=== PATIENT | female | born 1945 | race Caucasian/White ===

== ENCOUNTER → 2017-09-22 11:30 | Outpatient (CLI) | payer MEDICARE, OTHER, SELFPAY ==
--- NOTE | 2017-09-22 | DI.MRI.S_ITS ---
PROCEDURE: MR KNEE LT WO CON INDICATIONS: LEFT KNEE PAIN TECHNIQUE: Noncontrast sagittal PD fast spin echo and T2 fast spin echo with fat saturation, sagittal 3-D FLASH with fat saturation; coronal T1 spin echo and PD fast spin echo with fat saturation, and axial PD fast spin echo with fat saturation through the knee. COMPARISON: None. FINDINGS: Image quality: Excellent. Menisci: The medial extrusion of the medial meniscus is present. Amorphous high signal intensity within the medial meniscal body and posterior horn is present, demonstrating superior and inferior articular surface extension, indicating degenerative tearing. Radial tearing of the posterior horn medial meniscus at the meniscal root ligament insertion site is present. There is intrameniscal high signal within the anterior and posterior horns of the lateral meniscus, consistent with mucoid degeneration, without evidence of superimposed tear. Cruciate ligaments: The posterior cruciate ligament is intact. There is moderate signal loss and mild redundancy of the anterior cruciate ligament, indicating partial thickness tearing. Medial structures: The medial collateral ligament demonstrates mild T2 signal elevation within and surrounding its femoral insertion site. The posterior oblique ligament, semimembranosus tendon insertions, oblique popliteal ligament, and meniscocapsular junction appear intact. Visualized portions of the pes anserinus tendons appear normal. No abnormal bursal fluid. Lateral structures: The lateral collateral ligament demonstrates moderate T2 signal elevation within its substance at the femoral insertion site. The long and short heads of the biceps femoris tendon appear intact. The popliteus tendon appears normal; the popliteofibular ligament appears intact. The posterosuperior and anteroinferior popliteomeniscal fascicles appear intact. The arcuate and fabellofibular ligaments appear intact, on either side of the lateral inferior geniculate artery. Iliotibial band appears normal. Anterior structures: The quadriceps and patellar tendons appear intact. Patellar alignment is normal. No femoral trochlear dysplasia or ventral trochlear prominence. Mild edema in the superolateral aspect of the infrapatellar fat pad. Bones and cartilage: No bone marrow contusions or fractures. Mild ill-defined degenerative marrow edema within the posterior weightbearing aspect of the medial tibial plateau. Severe tricompartmental periarticular osteophyte formation is present. Moderate degree of cartilage loss overlies the lateral femoral trochlea and lateral patellar facet. Severe diffuse articular cartilage loss overlies the medial femoral condyle and medial tibial plateau weightbearing aspects. Joint space: There is a moderate knee joint effusion and a small Garcia's cyst. A few small intra-articular loose bodies are present, largest of which is in the posterior knee joint measuring 7 mm. Normal appearing synovial plicae are incidentally noted. IMPRESSION: 1. Medial meniscal tearing and medial extrusion. 2. 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 3. Partial-thickness medial and lateral collateral ligament tears. 4. Partial-thickness anterior cruciate ligament tear. 5. New joint effusion, Garcia's cyst, an intra-articular loose bodies. Dictated by: Gus Guerrero M.D. on 09/22/2017 at 14:41 Approved by: Gus Guerrero M.D. on 09/22/2017 at 14:45
--- NOTE | 2017-09-22 | DI.MG.S_ITS ---
BILATERAL DIGITAL SCREENING MAMMOGRAM 3D/2D WITH CAD: 09/22/2017 CLINICAL: Routine screening. Comparison is made to exams dated: 09/15/2016 mammogram, 09/15/2015 mammogram, and 09/03/2014 mammogram - [facility]. There are scattered fibroglandular elements in both breasts. Current study was also evaluated with a Computer Aided Detection (CAD) system. No significant masses, calcifications, or other findings are seen in either breast. There has been no significant interval change. IMPRESSION: NEGATIVE There is no mammographic evidence of malignancy. A 1 year screening mammogram is recommended. This exam was interpreted at Station ID: [id number]. NOTE: For mammograms, a report in lay terms will be sent to the patient. Approximately 15% of breast malignancies will not be visualized mammographically. In the management of a palpable breast mass, a negative mammogram must not discourage biopsy of a clinically suspicious lesion. Electronically Signed By: Vika galeana/janes:09/22/2017 16:27:08 letter sent: Normal Exam ACR BI-RADS Category 1: Negative [id number]
[2017-09-22 14:10] LABS: Add Manual Diff / Slide Review NO; Basophils Percent Auto 0.9 % (0-2); Eosinophils Percent Auto 4.3 % (2-4); Hematocrit 39.4 % (36-46); Hemoglobin 13.1 g/dL (12.0-16.0); Lymphocytes Percent Auto 29.7 % (25-40); Mean Corpuscular HGB Conc 33.3 % (30-36); Monocytes Percent Auto 5.7 % (3-14); Neutrophils Absolute Auto 4400 /uL (3000-5900); Neutrophils Percent Auto 59.4 % (50-75); Platelet Count 272 X10^3/uL (150-400); Red Blood Cell Count 4.24 X10^6/uL (4.0-5.2); Red Cell Distribution Width 13.9 % (11.6-14.8); White Blood Cell Count 7.5 X10^3/uL (4.5-11.0)
[2017-09-22 14:19] LABS: Hemoglobin A1C% w Est Avg Glu 6.2 % (4.0-6.0)
[2017-09-22 14:22] LABS: Prothrombin Time 11.3 SECONDS (10.1-12.7)
[2017-09-22 14:25] LABS: PTT Partial Thromboplastin Tim 31 SECONDS (26.4-36.2)
[2017-09-22 14:42] LABS: Blood Urea Nitrogen 35 mg/dL (7-17); Calcium 10.7 mg/dL (8.4-10.2); Carbon Dioxide 24 mmol/L (22-32); Chloride 102 mmol/L (98-107); Estimated Glomerular Filt Rate 54.3 mL/min (>60); Glucose 186 mg/dL (80-110); HEMOLYSIS < 15 (0-50); Potassium 5.1 mmol/L (3.4-5.1); Sodium 141 mmol/L (137-145)
== END ==
PROVIDERS: Family Provider Orthopaedic Surgery Orthopaedic Surgery of the Spine; PCP Internal Medicine; Visit Provider Orthopaedic Surgery
DX: M25.562 Pain in left knee (principal); S83.242A Other tear of medial meniscus, current injury, left knee, initial encounter; M17.12 Unilateral primary osteoarthritis, left knee; S83.412A Sprain of medial collateral ligament of left knee, initial encounter; S83.512A Sprain of anterior cruciate ligament of left knee, initial encounter; Z12.31 Encounter for screening mammogram for malignant neoplasm of breast; M48.062 Spinal stenosis, lumbar region with neurogenic claudication
CPT/HCPCS: 36415; 73721; 77063; 77067; 80048; 83036; 85025; 85610; 85730; 93005

== ENCOUNTER 2017-10-10 06:31 | Inpatient (IN) | payer MEDICARE, OTHER, SELFPAY ==
[2017-09-20 12:52] VITALS: BMI 33.5
[2017-10-10] VITALS (25 sets, daily range): BP systolic 92–146; BP diastolic 47–69; PULSE 57–75; RESP 12–18; TEMP 36–36.8; O2SAT 15–99; BMI 33.9
[2017-10-10] MEDS: LACTATED RINGERS 1,000 ML 42 ML IV ×2 (08:47→10:14)
--- NOTE | 2017-10-10 08:52 | PM.PREOP ---
Pre-operative Note Interval Note Pre-op Check: History & Physical Reviewed by Physician, Exam Performed and History & Physical exam performed today
[2017-10-10] MEDS: CLINDAMYCIN 900 MG/50 ML PIGGYBACK 50 MG IV ×2 (08:53→16:36)
--- NOTE | 2017-10-10 09:30 | SUR.OPER ---
Prone on spine table, head in foam head support, padded chest and pelvic supports, gel pad at knees, lower legs supported by pillows; nipples, genitalia and toes free of pressure, arms secured on foam padded arm boards at <90 degrees abduction. Tape over blanket at thigh secured to table.
[2017-10-10] MEDS: BUPIVACAINE 0.25% W/ EPI 50 ML VIAL 30 ML INJ (09:45)
[2017-10-10] MEDS: BUPIVACAINE LIPOSOME 266 MG/20 ML VIAL INJ (09:46)
--- NOTE | 2017-10-10 10:11 | SUR.OPER ---
Pt has a skin ulcer on her right medial ankle, observed during positioning, surgeon notified.
[2017-10-10] MEDS: ACETAMINOPHEN IV 1,000 MG/100 ML VIAL 400 MG IV (11:05)
--- NOTE | 2017-10-10 11:51 | DI.RAD.S_ITS ---
PROCEDURE: XR LUMBAR SPINE 2-3V INDICATIONS: L3-4, L4-5 TLIF TECHNIQUE: 2 views of the lumbar spine were acquired. COMPARISON: [facility], MR, L-SPINE WITHOUT CONTRAST, 01/18/2017, 12:10. [facility], CR, L-SPINE 2-3 VIEWS, 01/18/2017, 12:40. FINDINGS: 2 intraoperative fluoroscopy images demonstrate discectomy and posterior fusion at L3-L4 and L4-L5. IMPRESSION: Discectomy and posterior fusion at L3-L4 and L4-L5. Dictated by: Orlando Otero M.D. on 10/10/2017 at 12:26 Approved by: Orlando Otero M.D. on 10/10/2017 at 12:27
--- NOTE | 2017-10-10 12:00 | P.OP_ITS ---
Operative Date/Time/Diagnoses - Date of procedure: 10/10/17 Time of procedure: 08:58 Pre-op diagnosis: 1. L3-4, L4-5 spondylolisthesis 2. L3-4, L4-5 spondylosis with radiculopathy 3. L3-4, L4-5 spinal stenosis Post-op diagnosis: same Procedure & Clinicians Procedure: 1. L3-4, L4-5 Postero-lateral and posterior interbody fusion 2. L3-4, L4-5 interbody cage placement. 3. L3-4, L4-5 decompressive laminectomy with bilateral facetecomies 4. L3-4, L4-5 Posterior segmental instrumentation 5. Raven of bone marrow from iliac crest 6. Utilization of microsurgical technique and operating microscope Same procedure as scheduled: Yes Indications: Patient has been having chronic back pain and worsening lumbar radiculopathy. Patient failed multiple conservative management with worsening pain weakness and numbness in her lower extremity. Patient has been having difficulty performing activity of daily living. After discussing risks benefits of treatment options, patient elected proceed with surgery. Surgeon: Black Michael Family Consumer Science Teacher: Yolanda Baldwin Click Yes if Unassisted: No Anesthesia Type: General Operative Notes Closure Type: primary Specimen(s): none sent Implants & Drains: Globus revolve screws and caliber cages Applied: catheter Estimated Blood Loss (mL): 100 Blood products transfused: none Procedure in detail: Patient was seen in the preoperative area. Risks and benefits of the surgery was discussed with the patient. Informed consent was obtained from the patient and placed in the chart. Surgical site was marked. Patient was taken to the operative room. General anesthesia was administered. Prophylactic antibiotic was given to the patient less than 30 min before the incision was made. Patient was placed into a prone position on the Fede table. Patient's back was then prepped and draped in the sterile fashion. Time- out was performed at this time. Using AP and lateral C-arm imaging the interval between L3-4, L4-5 was identified and marked on patient's back. A 2 inch incision 2 in from midline was made on the left side first. The fascia was incised in line with skin incision. Globus MARS retractors was placed inside the incision and docked onto the L3and L4 lamina. Using microsurgical technique and operating microscope, a L3 and L4 laminectomy and L3-4, L4-5 facetectomy was performed using a Kerrison rongeur. The disc space at L4-5, L5-S1 was identified. And a total diskectomy was performed at L3-4, L4-51 level. The endplates were decorticated using a rasp and shaver. The total diskectomy and decortication was performed at L3-4, L4-5 level in order to to accomplish a L3-4, L4-5 fusion. The local bone from the laminectomy and facetectomy was saved for local bone grafting. After the total diskectomy and decortication was completed, Globus viacell bone graft material was combined with local bone that was harvested earlier. At this time , a separate skin is incision was made over the iliac crest. A Jamshidi needle was inserted into the iliac crest through a separate skin incision. 5 cc of bone marrow aspiration was obtained through the separate skin incision using a Jamshidi needle from the iliac crest. The bone marrow aspiration was combined with local bone and the via cell bone grafting material. The bone grafting material was placed into the L3-4, L4-5 interbody space along with two cages, one expandable cage at each level. The cages were expanded to their maximum height using the torque limiting screwdriver. At this time a mirror image incision was made on the right side. The fascia was incised in line with the skin incision. Globus MARS retractor was inserted and docked onto the L3-4, L4-5 posterolateral gutter. Using the power drill, posterior-lateral decortication was performed at L3-4, L4-5 level until bleeding cortical bone was identified. The remaining bone grafting material was placed into the L3-4, L4-5 posterior lateral gutter he order to accomplish posterolateral fusion at the L3-4, L4-5 levels. Using the double C-arm technique, pedicle screws were placed into the L3, L4, L5 pedicles bilaterally. This was done by placing the Jamshidi needle into the pedicles, then placing the guidewires over the Jamshidi needle, and finally placing the cannulated screws over the guidewires bilaterally. After the pedicle screws were placed, 2 titanium rods was locked into the heads of the pedicle screws using locking caps and torque limiting screwdriver. Total 6 pedicles screws were placed. After all the hardware was placed, and confirmed with AP and lateral C-arm imaging, the wound was then irrigated with sterile normal saline and packed with Ray-Emma gauze for 3 min to accomplish hemostasis. After the gauze was removed the deep fascia was closed with #1 Vicryl suture. The subcutaneous layer was closed with 2-0 Vicryl. The skin was closed with skin kofi. Patient tolerated the procedure well. There were no complications. Complications: none Condition: stable Disposition: Acute Care Plan for aftercare: Admit to inpatient hospital
[2017-10-10] MEDS: HYDROMORPHONE 2 MG INJ 0.5 MG IV ×4 (12:18→12:50)
--- NOTE | 2017-10-10 13:00 | SUR.PHASEI ---
pt has dressing to right ankle and Mar RN said she came to surgery with that sore and Mar RN placed a dressing to right ankle. dressing is dry and intact.Report called and given to floor nurse.
[2017-10-10] MEDS: SODIUM CHLORIDE 0.9% 1,000 ML 100 ML IV (13:31)
--- NOTE | 2017-10-10 14:34 | PC.NURSE ---
Patient arrive to room at 1315. at bedside. Patient resting, with eyes closed, responds to verbal commands. Denies pain. Foot SCD's applied. Oriented to room. VS obtained. NS started 100ml/hr.
[2017-10-10] MEDS: OXYCODONE IR 5 MG TABLET 10 MG PO ×2 (16:36→19:54)
[2017-10-10] MEDS: ACETAMINOPHEN 325 MG TABLET 650 MG PO (19:53)
[2017-10-10] MEDS: METFORMIN HCL 500 MG TABLET 1000 MG PO (21:05)
[2017-10-10] MEDS: DOCUSATE 100 MG CAPSULE PO (21:06)
[2017-10-10] MEDS: SENNOSIDES 8.6 MG TABLET 17.2 MG PO (21:07)
--- NOTE | 2017-10-10 21:11 | PC.NURSE ---
Continuous pulse ox in place, 96% on 2 L. HR periodically drops to mid 50s during periods of sleep. Spoke with GAYLE Baldwin over the phone and made her aware of pt HR and drowsiness. Made PA aware that pt is extremely drowsy, and at times during conversation pt will fall asleep but awakens to verbal stimuli. Pt denies nausea. 2 oxycodone given at 1640, pt still c/o pain 12/19. At 1950 tylenol given with 2 PRN oxy, pt stating her pain is more tolerable. Foot SCD's in place, +pps, c/o neuropathy in bilateral feet at baseline. Frost patent, secured at bedside, draining clear yellow urine. Call light in reach. BA active.
[2017-10-11] VITALS (9 sets, daily range): BP systolic 113–123; BP diastolic 58–89; PULSE 65–80; RESP 14–18; TEMP 36.7–37.7; O2SAT 94–98
[2017-10-11] MEDS: CLINDAMYCIN 900 MG/50 ML PIGGYBACK 50 MG IV (00:18)
[2017-10-11] MEDS: OXYCODONE IR 5 MG TABLET 10 MG PO ×5 (00:28→15:58)
[2017-10-11] MEDS: SODIUM CHLORIDE 0.9% 1,000 ML 100 ML IV (01:12)
[2017-10-11] MEDS: hydrOXYzine pamoate 25 MG CAPSULE PO ×3 (01:41→10:10)
[2017-10-11] MEDS: HYDROMORPHONE 0.5 MG INJ IV (01:41)
[2017-10-11 06:13] LABS: Hematocrit 33.5 % (36-46); Hemoglobin 11.2 g/dL (12.0-16.0)
--- NOTE | 2017-10-11 06:34 | PC.NURSE ---
Shift note- [id number] Pt complained of pain in lower back of 10 at start of shift. Provided 2 tabs oxycodone 0028. Pt continued to complain of pain. Provided 1 tab vistaril and 0.5mg dilaudid at 0141. Pt was able to sleep 2- 3 hours. Pt current pain level at 8.
[2017-10-11] MEDS: DOCUSATE 100 MG CAPSULE PO ×2 (08:42→20:35)
[2017-10-11] MEDS: SITAGLIPTIN 50 MG TABLET 100 MG PO (08:42)
[2017-10-11] MEDS: METFORMIN HCL 500 MG TABLET 1000 MG PO ×2 (08:42→20:35)
[2017-10-11] MEDS: CLOPIDOGREL 75 MG TABLET PO (08:43)
[2017-10-11] MEDS: ATORVASTATIN 20 MG TABLET PO (10:10)
--- NOTE | 2017-10-11 13:00 | PT.IIE ---
Current Diagnoses Spondylolisthesis, lumbar region (10/10/17) Other spondylosis with radiculopathy, lumbar region (10/10/17) Spinal stenosis, lumbar region with neurogenic claudication (10/10/17) Surgery Performed Operation Date: 10/10/17 07:45 Actual Procedures p L3-4, L4-5 TLIF w/Posterior Stuart Michael MD Surgical History (Last Updated 09/20/17 @ 13:12 by Radha Mathew, RN) Hx of heart artery stent (Acute) Hx of tonsillectomy (Acute) S/P foot surgery, left (Acute) S/P foot surgery, right (Acute) Status post cataract extraction of both eyes with insertion of intraocular lens (Acute) Medical History (Last Updated 09/20/17 @ 13:15 by Radha Mathew RN) Amputated toe of left foot (Acute) CAD (coronary artery disease) (Acute) CVA (cerebral vascular accident) (Acute) Cardiomyopathy (Acute) Carotid arterial disease (Acute) Cerebral vascular disease (Acute) DDD (degenerative disc disease) (Acute) Diabetes (Acute) Foot ulcer due to secondary DM (Acute) HTN (hypertension) (Acute) Hyperlipidemia (Acute) Incontinence in female (Acute) Lumbar stenosis (Acute) Peripheral neuropathy (Acute) Physical Therapy Inpatient Evaluation/Re-Eval M1 PT/OT-IP Prior Functional Status Start: 10/11/17 12:46 Freq: NEEDED Status: Active Protocol: Document 10/11/17 12:47 AB (Rec: 10/11/17 13:00 AB [email or web address]) Medical Review Prior Functional Status Medical History Reviewed Yes Mobility and Gait pt stated that she is modified independent with all mobilities and ambulation without AD but occasionally uses a 4WW Social History Household Members spouse Living Arrangements House Number of Floors (Floors) One Floor Number of Stairs To Enter/Railing? no steps to enter Home Environment Standard Height Toilet Walk in Shower Built-In Shower Seat Home Equipment Front Wheel Walker Four Wheel Walker Manual Wheelchair Grab Bars Near Toilet Employment Status Retired M2 PT-IP Current Condition Start: 10/11/17 12:46 Freq: NEEDED Status: Active Protocol: Document 10/11/17 12:47 AB (Rec: 10/11/17 13:00 AB [email or web address]) Physical Therapy Current Condition Current Condition Evaluation Date 10/11/17 Treatment Diagnosis s/p L3-4, L4-5 TLIF Onset Date 10/10/17 Precautions Lumbar Precautions Log Roll No Twisting Limit Bending Lifting Restriction of 10 lbs Gait Belt above Incisional Area M3 PT-IP Subjective Start: 10/11/17 12:46 Freq: NEEDED Status: Active Protocol: Document 10/11/17 12:47 AB (Rec: 10/11/17 13:00 AB [email or web address]) Subjective Physical Therapy Visit Type Type Initial Evaluation Visit Start Time 10:03 Visit Stop Time 10:54 Total Visit Minutes 51 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 of 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 0 Therapy Pain Assessment Pain When Pain Assessed At Rest Pain Present Pain Present Pain Reported Location Back Intensity 10 Scale Used Numeric (1 - 10) Pain Management Techniques Modification of Treatment Timing of Activity with Medications M4 PT-IP Mobility and Gait Start: 10/11/17 12:46 Freq: NEEDED Status: Active Protocol: Document 10/11/17 12:47 AB (Rec: 10/11/17 13:00 AB [email or web address]) PT-Bed Mobility Assessment Rolling Level of Assist Maximal Assistance 1 Person Assistance Supine to Sit Supine to Sit Maximum Assistance 1 Person Assistance Sit to Supine Sit to Supine Maximum Assistance 2 Person Assistance PT-Transfer Assessment Sit to and From Stand Sit to and from Stand Maximum Assistance 2 Person Assistance Use of Upper Extremities Equipment Transfer Assistive Device Gait Belt Front Wheeled Walker Orthotic/Prosthetic Devices or Brace: No Comments Mobility Comments pt unable to sit on chiar. C/ o dizziness in standing; instructed to take side steps towards HOB using FWW. BP supine: 107/75 sitting on EOB: 134/72 after standin/67. pt is very drowsy and unable to answer questions and follow directions consistently Gait Assessment Gait Gait Assistance Required: Maximum Assistance Distance (Feet) (feet) 5 Able to Maintain Weight Bearing Status Yes During Gait Assistive Devices Assistive Device Gait Belt Front Wheeled Walker Gait Deviations General Gait Pattern Ataxic Decreased Stride Length Decreased Feet Clearance Factors Limiting Gait Function Factors Limiting Gait Function Decreased Activity Tolerance Decreased Strength Limited Range of Motion Pain Poor Balance Poor Safety Awareness PT-Balance Assessment Sitting Balance and Reactions Static Sitting Balance Ability Good Dynamic Sitting Balance Ability Fair Standing Balance and Reactions Static Standing Balance Ability Poor Dynamic Standing Balance Ability Poor Device Used FWW M5 PT-IP Objective Assessments Start: 10/11/17 12:46 Freq: NEEDED Status: Active Protocol: Document 10/11/17 12:47 AB (Rec: 10/11/17 13:00 AB [email or web address]) Orientation Orientation/Cognition Level of Alertness Confusional State Orientation Name Month Year Situation Safety Awareness Decreased Safety Awareness Memory Description Short Term Impaired Strength Lower Extremity Strength Assessment Bilaterally Impaired Hip 3+/5 Knee 4-/5 Ankle 4-/5 Sensation Assessment Sensation Gross Sensation Right LE Impaired Left LE Impaired Sensation Description Numbness Muscle Tone Muscle Tone WNL No M6 PT-IP Treatment Start: 10/11/17 12:46 Freq: NEEDED Status: Active Protocol: Document 10/11/17 12:47 AB (Rec: 10/11/17 13:00 AB [email or web address]) Physical Therapy Treatment Education Education Provided Precautions Weight Bearing Status Post-Op Packet Safety M7 PT-IP Assessment and Plan Start: 10/11/17 12:46 Freq: NEEDED Status: Active Protocol: Document 10/11/17 12:47 AB (Rec: 10/11/17 13:00 AB [email or web address]) PT Summary Assessment and Plan Potential Rehabilitation Potential Fair Status of Condition at Evaluation Evolving Summary Impairments Pain ROM Strength Balance Coordination Sensation Tone Cognition Bed Mobility Transfers Gait Activity Tolerance Assessment Summary pt requiring 2 person assist with mobility and has decrease coginitive level affecting following instructions and mobility. d/c plan depending on progress but at this time may require SNF rehab. Goals Bed Mobility Goal Standby Assistance Transfer Goal Standby Assistance Gait Goal Standby Assistance Gait Distance 150 Days to Meet Goals 3 Frequency of Treatment Frequency Of Treatment Twice a Day Treatment Plan Physical Therapy Treatment Plan Bed Mobility Training Transfer Training Gait Training Therapeutic Exercise Balance Retraining Post Op Education Discharge Planning Hot or Cold Pack Neuromuscular Re-ed Coordination Retraining Manual Therapy Other Recommendations and Next Treatment ambulation Focus Recommendations To Nursing Amount of Assist Needed 2 Person Assist Discharge Recommendations PT Discharge Recommendations SNF Rehab
--- NOTE | 2017-10-11 14:34 | PM.PNPO.1 ---
Subjective Date Patient Seen: 10/11/17 Time Patient Seen: 14:34 Interval history: POD #1 status post L3-[address] Michael. Her pain is not well-controlled. She is diabetic and her blood sugars have been well controlled. She has had no difficulty in the past taking steroids. She still has a Frost in place. Having difficulty mobilizing with PT due to pain. Exam Vital Signs (past 8 hours): - 10/11/17 07:00 10/11/17 08:49 10/11/17 11:45 Temperature 98.2 F 98.7 F Pulse Rate 75 67 Respiratory Rate 18 16 Blood Pressure 113/66 120/63 Pulse Oximetry 96 96 96 Oxygen Delivery Method Room Air Oxygen Flow Rate 1 Narrative Exam Narrative: Patient lying down in bed in no acute distress. Alert and oriented x3. Calves are soft, compressible, nontender bilaterally. She is able to actively dorsiflex and plantar flex. Sensation intact to light touch throughout bilateral lower extremities. Pulses are symmetrical. Objective Labs Result Diagrams: 10/11/17 05:51 Labs: Laboratory Results - last 24 hr 10/11/17 05:51 Hgb 11.2 L Hct 33.5 L Assessment & Plan Post-op (1) S/P lumbar fusion: Current Visit: Yes Status: Acute (2) Diabetes: Current Visit: Yes Status: Acute Postoperative Procedures Operation Date: 10/10/17 07:45 Actual Procedures Side Surgeon p L3-4, L4-5 TLIF w/Posterior Instru Black Michael MD POD #1 status post L3-[address] Michael. Will start 1 dose of Decadron 10 mg now, and then 4 mg every 6 hr for 24 hr burst. Continue to monitor blood sugars. Will mobilize with physical therapy. DC Frost once more active. Plan to discharge in next 1-2 days once medically stable, ambulating well, and pain adequately controlled. Time Spent With Patient less than 15 minutes
[2017-10-11] MEDS: DEXAMETHASONE 4 MG TABLET 10 MG PO (14:50)
[2017-10-11] MEDS: LISINOPRIL 10 MG TABLET PO (14:50)
[2017-10-11] MEDS: METOPROLOL ER 50 MG TABLET PO (14:50)
--- NOTE | 2017-10-11 15:13 | PT.IPTN ---
Current Diagnoses Type 2 diabetes mellitus without complications (10/10/17) Spondylolisthesis, lumbar region (10/10/17) Other spondylosis with radiculopathy, lumbar region (10/10/17) Spinal stenosis, lumbar region with neurogenic claudication (10/10/17) Arthrodesis status (10/10/17) Surgery Performed Operation Date: 10/10/17 07:45 Actual Procedures p L3-4, L4-5 TLIF w/Posterior Stuart - Black Michael MD Physical Therapy Treatment Note M2 PT-IP Current Condition Start: 10/11/17 12:46 Freq: NEEDED Status: Active Protocol: Document 10/11/17 12:47 AB (Rec: 10/11/17 13:00 AB [id number]) Physical Therapy Current Condition Current Condition Evaluation Date 10/11/17 Treatment Diagnosis s/p L3-4, L4-5 TLIF Onset Date 10/10/17 Precautions Lumbar Precautions Log Roll No Twisting Limit Bending Lifting Restriction of 10 lbs Gait Belt above Incisional Area M3 PT-IP Subjective Start: 10/11/17 12:46 Freq: NEEDED Status: Active Protocol: Document 10/11/17 15:13 AB (Rec: 10/11/17 16:46 AB [id number]) Subjective Physical Therapy Visit Type Type Treatment Note Visit Start Time 15:13 Visit Stop Time 15:40 Total Visit Minutes 27 Number of FILM OR TAPE LIBRARIAN Visits 0 Physical Therapy Visit Comments Patient Comments pt agreeable to do therapy Patient/Caregiver Goals spouse present during tx session and confirmed home set -up and pt's PLOF since pt was drowsy this morning. Therapy Pain Assessment Pain When Pain Assessed At Rest Pain Present Pain Present Pain Reported Location Back Intensity 10 Scale Used Numeric (1 - 10) Pain Management Techniques Re-positioning Timing of Activity with Medications M4 PT-IP Mobility and Gait Start: 10/11/17 12:46 Freq: NEEDED Status: Active Protocol: Document 10/11/17 15:13 AB (Rec: 10/11/17 16:46 AB [id number]) PT-Bed Mobility Assessment Rolling Type of Rolling Log Rolling Level of Assist Maximal Assistance Supine to Sit Supine to Sit Maximum Assistance 1 Person Assistance Sit to Supine Sit to Supine Maximum Assistance 2 Person Assistance Scooting Scooting to Edge of Bed Maximum Assistance Scooting Up and Down in Bed Maximum Assistance PT-Transfer Assessment Sit to and From Stand Sit to and from Stand Moderate Assistance 2 Person Assistance Use of Upper Extremities Equipment Transfer Assistive Device Gait Belt Front Wheeled Walker Gait Assessment Gait Gait Assistance Required: Moderate Assistance 2 Person Assist Distance (Feet) (feet) 10 Able to Maintain Weight Bearing Status Yes During Gait Assistive Devices Assistive Device Gait Belt Front Wheeled Walker Orthotic/Prosthetic Devices or Brace: No Gait Deviations General Gait Pattern Antalgic Decreased Stride Length Decreased Feet Clearance Factors Limiting Gait Function Factors Limiting Gait Function Decreased Activity Tolerance Decreased Strength Difficulty Following Directions Pain Poor Balance Poor Safety Awareness Comments Gait Comments pt requires cues for all tasks M5 PT-IP Objective Assessments Start: 10/11/17 12:46 Freq: NEEDED Status: Active Protocol: Document 10/11/17 12:47 AB (Rec: 10/11/17 13:00 AB [email or web address]) Orientation Orientation/Cognition Level of Alertness Confusional State Orientation Name Month Year Situation Safety Awareness Decreased Safety Awareness Memory Description Short Term Impaired Strength Lower Extremity Strength Assessment Bilaterally Impaired Hip 3+/5 Knee 4-/5 Ankle 4-/5 Sensation Assessment Sensation Gross Sensation Right LE Impaired Left LE Impaired Sensation Description Numbness Muscle Tone Muscle Tone WNL No M6 PT-IP Treatment Start: 10/11/17 12:46 Freq: NEEDED Status: Active Protocol: Document 10/11/17 15:13 AB (Rec: 10/11/17 16:46 AB [id number]) Physical Therapy Treatment Education Education Provided Precautions Weight Bearing Status Post-Op Packet Safety M7 PT-IP Assessment and Plan Start: 10/11/17 12:46 Freq: NEEDED Status: Active Protocol: Document 10/11/17 15:13 AB (Rec: 10/11/17 16:46 AB [id number]) PT Summary Assessment and Plan Potential Rehabilitation Potential Fair Summary Impairments Pain ROM Strength Balance Coordination Sensation Tone Cognition Bed Mobility Transfers Gait Activity Tolerance Progress Towards Goals Slow Progress due to Pain Slow Progress due to Activity Tolerance Assessment Summary pt continues to require 2 person assist with mobility but was able to ambulate ~ 10 ft using fWW this afternoon. pt continues to require SNF rehab but will continue to assess progress. Goals Bed Mobility Goal Standby Assistance Transfer Goal Standby Assistance Front Wheeled Walker Gait Goal Standby Assistance Front Wheel Walker Gait Distance 150 Days to Meet Goals 3 Frequency of Treatment Frequency Of Treatment Twice a Day Treatment Plan Physical Therapy Treatment Plan Bed Mobility Training Transfer Training Gait Training Therapeutic Exercise Balance Retraining Post Op Education Discharge Planning Hot or Cold Pack Neuromuscular Re-ed Coordination Retraining Manual Therapy Recommendations To Nursing Amount of Assist Needed 2 Person Assist Discharge Recommendations PT Discharge Recommendations SNF Rehab
--- NOTE | 2017-10-11 15:37 | CM.DANOTE ---
DCP/Assessment: Reviewed chart. Patient is a 72yr old female admitted to for elective Lami w/fusion performed on 10-10-[address] Michael. Primary payor is 1)Medicare 2)Commercial Insurance. PCP is Dr. Gnozalez. Met with patient and spouse/Eddie at bedside explained CM/SW role. Patient sitting in recliner very uncomfortable/pain at time of visit. RN notified. Patient and spouse confirm that patient plans to return home when medically stable. Patient has all needed DME and at this time does not anticipate any needs. Hospitalist consult placed today for medical management. Spoke with therapy and current d/c recommendation is SNF. Met again with patient and spouse and both in agreement that they would prefer to return home. Therapy in agreement that it might be too soon to tell re: recommendation. They plan to see patient again in AM. Patient and spouse agreeable to HH and prefer if services needed. TELEPHONE LINEWORKER notified patient and therapy that Dr. Michael typically does not order HH for spine surgeries therefore, it would need to be checked with him on whether or not he would like HH or SNF upon d/c. P: Pending. CM team to follow closely. SNF/HH list provided to patient but it is unclear at this time if either will be needed or requested by MD. White board updated with CM team name/number. WATSON Shaw Discharge Planning/Care Management CM Discharge Assessment Start: 10/11/17 13:35 Freq: Status: Active Protocol: Document 10/11/17 15:35 KJS (Rec: 10/11/17 15:37 KJS [id number]) Discharge Planning Assessment Assigned Platform Software Engineer WATSON/Leni History Provided By Patient Significant Other Prior Living Arrangements House Household Members spouse Independent with ADL's Yes Is patient alert and oriented? Yes DME Already Rented / Owned Wheelchair FWW / Walker Crutches Comment Resides in single level home in [place], [place]. Transportation Arrangement Family If patient plan is home with home health Unclear at this time. : Has signed face to face form been completed? Review Status In Process Next Review Type Continued Stay Review
--- NOTE | 2017-10-11 15:53 | OT.IP.TRT ---
Current Diagnoses Type 2 diabetes mellitus without complications (10/10/17) Spondylolisthesis, lumbar region (10/10/17) Other spondylosis with radiculopathy, lumbar region (10/10/17) Spinal stenosis, lumbar region with neurogenic claudication (10/10/17) Arthrodesis status (10/10/17) Surgery Performed Operation Date: 10/10/17 07:45 Actual Procedures p L3-4, L4-5 TLIF w/Posterior Stuart - Black Michael MD Occupational Therapy Treatment Note M2 OT-IP Current Condition Start: 10/11/17 15:32 Freq: Status: Active Protocol: Document 10/11/17 14:15 [facility] (Rec: 10/11/17 15:52 [facility] [email or web address]) Occupational Therapy Current Condition Current Condition Evaluation Date 10/11/17 Treatment Diagnosis Lumbar Spondylolisthesis Post Operative Precautions Lumbar Precautions Log Roll No Twisting Limit Bending Lifting Restriction of 10 lbs Gait Belt above Incisional Area Weight Bearing Status Weight Bearing Status Weight Bear as Tolerated M3 OT- IP Subjective and Pain Start: 10/11/17 15:32 Freq: Status: Active Protocol: Document 10/11/17 14:15 [facility] (Rec: 10/11/17 15:52 [facility] [email or web address]) OT- Subjective Occupational Therapy Visit Type Type Initial Evaluation Visit Start Time 14:15 Visit Stop Time 14:45 Total Visit Minutes 30 Occupational Therapy Visit Comments Patient/Caregiver Goals Pt and would like for pt to go home when medically stable. OT Pain Assessment Pain When Pain Assessed At Rest Pain Present Pain Present Pain Reported Location Back Intensity 9 Scale Used Numeric (1 - 10) M4 OT- IP ADL's Start: 10/11/17 15:32 Freq: Status: Active Protocol: Document 10/11/17 14:15 [facility] (Rec: 10/11/17 15:52 [facility] [email or web address]) OT ADL-Dressing Comments OT Dressing Comments Educating regarding AED for LB dressing, to dress right side first and doff last. Pt's assist with compression stocking. OT ADL-Toileting Comments OT Toileting Comments Pt on catheter. M6 OT- IP Functional Cognition Start: 10/11/17 15:32 Freq: Status: Active Protocol: Document 10/11/17 14:15 [facility] (Rec: 10/11/17 15:52 [facility] [email or web address]) Cognitive Factors Limiting Selfcare Function Cognitive Ability Level of Alertness Alert Confusional State Patient Orientation Name Place Situation Attention Span Ability Capable of Focused Attention Unable to Sustain Attention Ability to Follow Commands Able to Follow One Step Commands with Increased Time Able to Follow One Step Commands with Repetition Memory Description Short Term Impaired Safety Awareness Decreased Recall of Precautions Decreased Ability to Apply Precautions Underestimates Need for Assistance Cognitive Comments Cognitive Assessment Comments Pt needing reminders for back precautions. Pt needing simple step commands. M7 OT- IP Mobility and Balance Start: 10/11/17 15:32 Freq: Status: Active Protocol: Document 10/11/17 14:15 [facility] (Rec: 10/11/17 15:52 [facility] [id number]) OT- Bed Mobility Assessment Sit to Supine Sit to Supine Assist Maximum Assistance 2 Person Assistance OT-Transfer Assessment Sit to and From Stand Sit to and from Stand Maximum Assistance 2 Person Assistance Transfers Transfer Ability Minimal Assistance 2 Person Assistance Technique Transfer Destination Bed Chair Transfer Technique Stand Step Pivot Devices Transfer Assistive Devices Front Wheeled Walker Comments Mobility Comments Pt main difficulty from sit to stand and from bed mobility and needing MAX A x2, once pt on her feet able to more with less assist. OT- Balance Assessment Sitting Balance and Reactions Static Sitting Balance Ability Fair Standing Balance and Reactions Static Standing Balance Ability Fair M8 OT- IP Objective Assessments Start: 10/11/17 15:32 Freq: Status: Active Protocol: Document 10/11/17 14:15 [facility] (Rec: 10/11/17 15:52 [facility] [email or web address]) OT Gross Range of Motion Upper Extremity Range of Motion Assessment Within Functional Limits OT Strength Comments Strength Comments WFL for needs. OT-Muscle Tone Assessment Muscle Tone WNL Yes M9 OT- IP Assessment and Plan Start: 10/11/17 15:32 Freq: Status: Active Protocol: Document 10/11/17 14:15 [facility] (Rec: 10/11/17 15:52 [facility] [email or web address]) OT Summary Assessment and Plan Potential Rehabilitation Potential Good Analytic Complexity at Evaluation Moderate Summary OT Impairments Pain Strength Balance Functional Cognition Functional Mobility Grooming Dressing Toileting Bathing Toilet Transfers Shower Transfers Progress Towards Goals Slow Progress due to Pain Slow Progress due to Medical Issues Slow Progress due to Activity Tolerance Slow Progress due to Cognition Assessment Summary Pt MOD complexity due to impairments above and mainly needing 2 person assist for bed mobility and from sit to stand. Pt has supportive that will be able to assist for needs. Therefore pending caregiver training and safety of to assist to either go home with home health versus short skilled rehab stay. Goals Grooming Goal Standby Assistance Dressing Goal Minimal Assistance Toileting Goal Standby Assistance Bathing Goal Minimal Assistance Toilet Transfer Goal Standby Assistance Bedside Commode Shower Transfer Goal Minimal Assistance Shower Chair Grab Bars Patient/Caregiver Education Goal Demonstrate Post-Op Precautions Caregiver Independent Assisting Patient Days to Meet Goals 5 Frequency of Treatment Frequency Of Treatment Once a Day Treatment Plan OT Treatment Plan ADL Training Functional Cognition Training Functional Mobility Patient/Family Education Discharge Planning Other Treatment Recommendations and Next Family training with Treatment Focus for ADl's, functional mobility needs, and practice use of AED. Discharge Recommendations OT Discharge Recommendations Home with 24/ Assist Home Health SNF Rehab
--- NOTE | 2017-10-11 16:07 | PC.NURSE ---
Ortho: Lots of pain today when moving. Oxycodone x2, vistaril x1, both effective in helping to reduce pain but became sleepy after vistaril. Meds have not been fully effective. PA made aware of pain, see new orders for steroids. Pt given first dose but is aware it will take several hours before she feels them starting to work, she should feel better tomorrow. Pt has a baseline of some tingling in her fingers and some sensation changes to feet, these were present prior to surgery and she says they are not different. ppp, feet =/warm, legs feel weak and she has required assist of 2 people when moving. Hopefully will have a better day in the am. Cont w/poc.
[2017-10-11] MEDS: DEXAMETHASONE 4 MG TABLET PO ×2 (20:35→23:32)
[2017-10-11] MEDS: SENNOSIDES 8.6 MG TABLET 17.2 MG PO (20:36)
[2017-10-12] VITALS (9 sets, daily range): BP systolic 100–127; BP diastolic 55–65; PULSE 58–70; RESP 16–17; TEMP 36.4–37.1; O2SAT 94–97
[2017-10-12] MEDS: OXYCODONE IR 5 MG TABLET 10 MG PO ×2 (05:09→09:16)
[2017-10-12] MEDS: DEXAMETHASONE 4 MG TABLET PO ×2 (05:09→13:05)
--- NOTE | 2017-10-12 08:55 | P.PN_ITS ---
Subjective Date Patient Seen: 10/12/17 Time Patient Seen: 08:52 Interval history: Razia knows that she is doing better today. She notes that yesterday she took medications and she was somewhat confused had difficulty mobilizing with physical therapy. She has been out of bed but has not been out of the room. She notes moderate low back pain denies any pain radiating down into the legs bilaterally. Exam Vital Signs (past 8 hours): - 10/12/17 06:15 10/12/17 07:35 Temperature 98.7 F Pulse Rate 60 58 L Respiratory Rate 16 16 Blood Pressure 127/63 H 121/65 H Pulse Oximetry 94 96 Oxygen Delivery Method Room Air Oxygen Flow Rate 0 Narrative Exam Narrative: Resting comfortably in bed, dressing dry, calf soft bilaterally , normal strength in her tibialis anterior EHL and gastrocsoleus bilaterally, no focal decreased sensation in bilateral lower extremities. Objective Labs Result Diagrams: 10/11/17 05:51 Assessment & Plan Post-op Postoperative Procedures Operation Date: 10/10/17 07:45 Actual Procedures Side Surgeon p L3-4, L4-5 TLIF w/Posterior Instru Black Michael MD Doing well status post a decompression and fusion but having some difficulty with physical therapy and mobilizing in the room. She needs additional for additional physical therapy. Will discontinue her catheter to-day and help her to mobilize out of bed to the commode. Anticipate discharge to home tomorrow with her supportive . Time Spent With Patient less than 15 minutes
[2017-10-12] MEDS: METOPROLOL ER 50 MG TABLET PO (09:16)
[2017-10-12] MEDS: CLOPIDOGREL 75 MG TABLET PO (09:16)
[2017-10-12] MEDS: METFORMIN HCL 500 MG TABLET 1000 MG PO ×2 (09:17→20:44)
[2017-10-12] MEDS: DOCUSATE 100 MG CAPSULE PO ×2 (09:17→20:44)
[2017-10-12] MEDS: LISINOPRIL 10 MG TABLET PO (09:17)
[2017-10-12] MEDS: SITAGLIPTIN 50 MG TABLET 100 MG PO (09:18)
[2017-10-12] MEDS: ATORVASTATIN 20 MG TABLET PO (09:20)
--- NOTE | 2017-10-12 10:08 | PT.IPTN ---
Current Diagnoses Type 2 diabetes mellitus without complications (10/10/17) Spondylolisthesis, lumbar region (10/10/17) Other spondylosis with radiculopathy, lumbar region (10/10/17) Spinal stenosis, lumbar region with neurogenic claudication (10/10/17) Arthrodesis status (10/10/17) Surgery Performed Operation Date: 10/10/17 07:45 Actual Procedures p L3-4, L4-5 TLIF w/Posterior Stuart Michael MD Physical Therapy Treatment Note M2 PT-IP Current Condition Start: 10/11/17 12:46 Freq: NEEDED Status: Active Protocol: Document 10/12/17 09:54 [facility] (Rec: 10/12/17 10:03 [facility] [id number]) Physical Therapy Current Condition Current Condition Evaluation Date 10/11/17 Treatment Diagnosis s/p L3-4, L4-5 TLIF Onset Date 10/10/17 Precautions Lumbar Precautions Log Roll No Twisting Limit Bending Lifting Restriction of 10 lbs Gait Belt above Incisional Area Weight Bearing Status Weight Bearing Status Weight Bear as Tolerated M3 PT-IP Subjective Start: 10/11/17 12:46 Freq: NEEDED Status: Active Protocol: Document 10/12/17 09:54 [facility] (Rec: 10/12/17 10:03 [facility] [id number]) Subjective Physical Therapy Visit Type Type Treatment Note Visit Start Time 09:15 Visit Stop Time 09:45 Total Visit Minutes 30 Number of BUSINESS SERVICES DIRECTOR Visits 0 Physical Therapy Visit Comments Patient Comments Razia reports she is doing much better this am, very low pain levels. Agrees to PT Patient/Caregiver Goals spouse present during tx session Therapy Pain Assessment Pain When Pain Assessed At Rest Pain Present Pain Present Denied Pain M4 PT-IP Mobility and Gait Start: 10/11/17 12:46 Freq: NEEDED Status: Active Protocol: Document 10/12/17 10:04 [facility] (Rec: 10/12/17 10:08 [facility] [id number]) PT-Bed Mobility Assessment Rolling Type of Rolling Log Rolling Level of Assist Standby Assistance Supine to Sit Supine to Sit Minimal Assistance Sit to Supine Sit to Supine Minimal Assistance Scooting Scooting to Edge of Bed Contact Guard Assistance Scooting Up and Down in Bed Minimal Assistance PT-Transfer Assessment Sit to and From Stand Sit to and from Stand Contact Guard Assistance Equipment Transfer Assistive Device Gait Belt Front Wheeled Walker Comments Mobility Comments greatly improved bed mobility and transfer skills today with steroids in her system. Gait Assessment Gait Gait Assistance Required: Contact Guard Assist 1 Person Assist Distance (Feet) (feet) 20 Able to Maintain Weight Bearing Status Yes During Gait Assistive Devices Assistive Device Gait Belt Front Wheeled Walker Orthotic/Prosthetic Devices or Brace: No Gait Deviations General Gait Pattern Antalgic Decreased Stride Length Decreased Feet Clearance Factors Limiting Gait Function Factors Limiting Gait Function Decreased Activity Tolerance Decreased Strength Pain Poor Balance Poor Safety Awareness Comments Gait Comments the patient did not require verbal cueing today and was able to follow all commands for tasks. PT-Balance Assessment Sitting Balance and Reactions Static Sitting Balance Ability Good Dynamic Sitting Balance Ability Good Standing Balance and Reactions Static Standing Balance Ability Fair Dynamic Standing Balance Ability Fair Device Used FWW M5 PT-IP Objective Assessments Start: 10/11/17 12:46 Freq: NEEDED Status: Active Protocol: Document 10/12/17 10:04 [facility] (Rec: 10/12/17 10:08 [facility] [id number]) Orientation Orientation/Cognition Level of Alertness Alert Safety Awareness Understands Safety Issues Sensation Assessment Sensation Gross Sensation Right LE Impaired Left LE Impaired Sensation Description Numbness M6 PT-IP Treatment Start: 10/11/17 12:46 Freq: NEEDED Status: Active Protocol: Document 10/12/17 09:54 [facility] (Rec: 10/12/17 10:03 [facility] [id number]) Physical Therapy Treatment Exercises Exercises Ankle Pumps Short Arc Quads Education Education Provided Precautions Weight Bearing Status Post-Op Packet Safety M7 PT-IP Assessment and Plan Start: 10/11/17 12:46 Freq: NEEDED Status: Active Protocol: Document 10/12/17 09:54 [facility] (Rec: 10/12/17 10:03 [id number] PT Summary Assessment and Plan Potential Rehabilitation Potential Good Status of Condition at Evaluation Stable Summary Impairments Pain ROM Strength Balance Coordination Sensation Transfers Gait Activity Tolerance Progress Towards Goals Progressing Toward Goals Assessment Summary good progress this am with the steroids on board. Razia was able to perform bed mobility with SBA. She transfered from sit -stand with CGA and was able to ambulate around the room with CGA and fww. Her prior level of function was limited mobility due to her decreased sensation in her feet. She understands her precautions of log rolling and avoiding twisting. She would like to go home with her tomorrow and after watching her today I think that would be fine for her to do with home health and her husbands assistance Goals Bed Mobility Goal Standby Assistance Transfer Goal Standby Assistance Front Wheeled Walker Gait Goal Standby Assistance Front Wheel Walker Gait Distance 150 Days to Meet Goals 1 Frequency of Treatment Frequency Of Treatment Twice a Day Treatment Plan Physical Therapy Treatment Plan Bed Mobility Training Transfer Training Gait Training Therapeutic Exercise Balance Retraining Post Op Education Discharge Planning Hot or Cold Pack Neuromuscular Re-ed Coordination Retraining Manual Therapy Recommendations To Nursing Amount of Assist Needed 1 Person Assist Discharge Recommendations PT Discharge Recommendations Home with Assistance
--- NOTE | 2017-10-12 10:49 | OT.IP.TRT ---
Current Diagnoses Type 2 diabetes mellitus without complications (10/10/17) Spondylolisthesis, lumbar region (10/10/17) Other spondylosis with radiculopathy, lumbar region (10/10/17) Spinal stenosis, lumbar region with neurogenic claudication (10/10/17) Arthrodesis status (10/10/17) Surgery Performed Operation Date: 10/10/17 07:45 Actual Procedures p L3-4, L4-5 TLIF w/Posterior Stuart - Black Michael MD Occupational Therapy Treatment Note M2 OT-IP Current Condition Start: 10/11/17 15:32 Freq: Status: Active Protocol: Document 10/11/17 14:15 [facility] (Rec: 10/11/17 15:52 [facility] [id number]) Occupational Therapy Current Condition Current Condition Evaluation Date 10/11/17 Treatment Diagnosis Lumbar Spondylolisthesis Post Operative Precautions Lumbar Precautions Log Roll No Twisting Limit Bending Lifting Restriction of 10 lbs Gait Belt above Incisional Area Weight Bearing Status Weight Bearing Status Weight Bear as Tolerated M3 OT- IP Subjective and Pain Start: 10/11/17 15:32 Freq: Status: Active Protocol: Document 10/12/17 10:40 [facility] (Rec: 10/12/17 10:49 [facility] [id number]) OT- Subjective Occupational Therapy Visit Type Type Treatment Note Visit Start Time 10:10 Visit Stop Time 10:40 Total Visit Minutes 30 Occupational Therapy Visit Comments Patient/Caregiver Goals Pt and would like for pt to go home when medically stable. OT Pain Assessment Pain When Pain Assessed At Rest Pain Present Pain Present Denied Pain M4 OT- IP ADL's Start: 10/11/17 15:32 Freq: Status: Active Protocol: Document 10/11/17 14:15 [facility] (Rec: 10/11/17 15:52 [facility] [id number]) OT ADL-Dressing Comments OT Dressing Comments Educating regarding AED for LB dressing, to dress right side first and doff last. Pt's assist with compression stocking. OT ADL-Toileting Comments OT Toileting Comments Pt on catheter. M6 OT- IP Functional Cognition Start: 10/11/17 15:32 Freq: Status: Active Protocol: Document 10/12/17 10:40 [facility] (Rec: 10/12/17 10:49 [facility] [id number]) Cognitive Factors Limiting Selfcare Function Cognitive Ability Level of Alertness Confusional State Patient Orientation Name Place Situation Attention Span Ability Unable to Focus Unable to Sustain Attention Ability to Follow Commands Able to Follow One Step Commands with Increased Time Able to Follow One Step Commands with Repetition Memory Description Immediate Impaired Short Term Impaired Safety Awareness Decreased Recall of Precautions Decreased Ability to Apply Precautions Underestimates Need for Assistance Cognitive Comments Cognitive Assessment Comments Pt very confused, not following commands, and notified nursing of increased confusion. Pt's noted increased confusion as well since taking oxycodone. M7 OT- IP Mobility and Balance Start: 10/11/17 15:32 Freq: Status: Active Protocol: Document 10/12/17 10:40 [facility] (Rec: 10/12/17 10:49 [facility] [id number]) OT- Bed Mobility Assessment Rolling Type of Rolling Roll to Right Roll to Left Supine to Sit Supine to Sit Assist Standby Assistance Minimal Assistance Sit to Supine Sit to Supine Assist Minimal Assistance Moderate Assistance Scooting Scooting to Edge of Bed Standby Assistance OT-Transfer Assessment Sit to and From Stand Sit to and from Stand Contact Guard Assistance Minimal Assistance Transfers Transfer Ability Standby Assistance Technique Transfer Destination Bed Bedside Commode Chair Transfer Technique Stand Step Pivot Devices Transfer Assistive Devices Front Wheeled Walker Comments Mobility Comments Pt continues to need HEYDI for bed mobility to help get legs in and able to assist. Pt more confused with safety awareness and having to assist more and be more direct with cues. OT- Balance Assessment Sitting Balance and Reactions Static Sitting Balance Ability Good Dynamic Sitting Balance Ability Good Standing Balance and Reactions Static Standing Balance Ability Fair M8 OT- IP Objective Assessments Start: 10/11/17 15:32 Freq: Status: Active Protocol: Document 10/11/17 14:15 [facility] (Rec: 10/11/17 15:52 [facility] [id number]) OT Gross Range of Motion Upper Extremity Range of Motion Assessment Within Functional Limits OT Strength Comments Strength Comments WFL for needs. OT-Muscle Tone Assessment Muscle Tone WNL Yes M9 OT- IP Assessment and Plan Start: 10/11/17 15:32 Freq: Status: Active Protocol: Document 10/12/17 10:40 [facility] (Rec: 10/12/17 10:49 [facility] [id number]) OT Summary Assessment and Plan Potential Rehabilitation Potential Good Summary OT Impairments Strength Balance Functional Cognition Functional Mobility Dressing Toileting Bathing Toilet Transfers Shower Transfers Progress Towards Goals Progressing Toward Goals Slow Progress due to Cognition Assessment Summary Pt having much less pain today but more confusion, increased confusion maybe from oxycodone, hursing notified. Pt and will continue to benefit form caregiver training to work on bed mobility and ADl needs prior to discharge. Therefore most likely home with versus skilled rehab at this point. Goals Grooming Goal Standby Assistance Dressing Goal Minimal Assistance Toileting Goal Standby Assistance Bathing Goal Minimal Assistance Toilet Transfer Goal Standby Assistance Bedside Commode Shower Transfer Goal Minimal Assistance Shower Chair Grab Bars Patient/Caregiver Education Goal Demonstrate Post-Op Precautions Caregiver Independent Assisting Patient Days to Meet Goals 4 Frequency of Treatment Frequency Of Treatment Once a Day Treatment Plan OT Treatment Plan ADL Training Functional Cognition Training Functional Mobility Patient/Family Education Discharge Planning Other Treatment Recommendations and Next Family training with Treatment Focus for ADl's, functional mobility needs, and practice use of AED. Discharge Recommendations OT Discharge Recommendations Home with 24/ Assist SNF Rehab
--- NOTE | 2017-10-12 12:26 | CM.DPC ---
DCP Cont: Per Ortho MD, pt may be stable for d/c home with HH tomorrow or Tuesday pending progress. Per PT/OT, pt making progress but may need until Tuesday before safe d/c home with HH. SW met bedside with pt and spouse and explained role and discussed d/c planning. Pt and spouse agreeable with home with HH and state that they will refuse SNF due to experiences they've had with family and friends at SNF. SW discussed HH services and frequency and provided the HH Choice List again. Pt and spouse have no preference and requesting SW begin the referral process. SW called [facility] and they will review for HH RN/PT but likely not until tomorrow since today is a holiday. SW faxed requested clinicals to review. Plan: SW to follow tomorrow for [facility] review for HH RN/PT to determine if they can open the pt to services. F2F and orders needed at d/c. [facility]
--- NOTE | 2017-10-12 12:35 | PC.NURSE ---
PT A/XO3 PRIOR TO OXYCODONE ADMINISTRATION. AFTER OXYCODONE ADMINISTRATION DURING O.T. ASSESSMENT PT IS FOUND TO BE CONFUSED. SITTING UP ON CHAIR CHAIR ALARM ON. 1230: PT OR SPOUSE REMOVED CHAIR ALARM AND PT AMBULATED TO BATHROOM WITHOUT CALLING STAFF. HUMAN RESOURCES TRAINEE ADVISED PT AND SPOUSE TO CALL FOR STAFF ASSISTANCE FOR MOBILITY AND TOILETING FOR SAFETY. RETURNED TO BED. BED ALARM ON. CALL LIGHT WITHIN REACH.
[2017-10-12] MEDS: ACETAMINOPHEN 325 MG TABLET 650 MG PO (13:05)
--- NOTE | 2017-10-12 14:09 | PT.IPTN ---
Current Diagnoses Type 2 diabetes mellitus without complications (10/10/17) Spondylolisthesis, lumbar region (10/10/17) Other spondylosis with radiculopathy, lumbar region (10/10/17) Spinal stenosis, lumbar region with neurogenic claudication (10/10/17) Arthrodesis status (10/10/17) Surgery Performed Operation Date: 10/10/17 07:45 Actual Procedures p L3-4, L4-5 TLIF w/Posterior Stuart Michael MD Physical Therapy Treatment Note M2 PT-IP Current Condition Start: 10/11/17 12:46 Freq: NEEDED Status: Active Protocol: Document 10/12/17 14:07 [facility] (Rec: 10/12/17 14:09 [facility] [id number]) Physical Therapy Current Condition Current Condition Evaluation Date 10/11/17 Treatment Diagnosis s/p L3-4, L4-5 TLIF Onset Date 10/10/17 Precautions Lumbar Precautions Log Roll No Twisting Limit Bending Lifting Restriction of 10 lbs Gait Belt above Incisional Area Weight Bearing Status Weight Bearing Status Weight Bear as Tolerated M3 PT-IP Subjective Start: 10/11/17 12:46 Freq: NEEDED Status: Active Protocol: Document 10/12/17 14:07 [facility] (Rec: 10/12/17 14:09 [facility] [id number]) Subjective Physical Therapy Visit Type Type Treatment Note Notes The patient had family in room for the holiday and had already transfered out of bedside chair and ambulated around with room with nursing. She requested no PT this afternoon Physical Therapy Visit Comments Patient Comments Razia reports she is doing better overall but is back in bed now and family is visiting and she requests to hold off on PT this afternoon. SHe notes she returned to bed without difficulty M4 PT-IP Mobility and Gait Start: 10/11/17 12:46 Freq: NEEDED Status: Active Protocol: Document 10/12/17 10:04 [facility] (Rec: 10/12/17 10:08 [facility] [id number]) PT-Bed Mobility Assessment Rolling Type of Rolling Log Rolling Level of Assist Standby Assistance Supine to Sit Supine to Sit Minimal Assistance Sit to Supine Sit to Supine Minimal Assistance Scooting Scooting to Edge of Bed Contact Guard Assistance Scooting Up and Down in Bed Minimal Assistance PT-Transfer Assessment Sit to and From Stand Sit to and from Stand Contact Guard Assistance Equipment Transfer Assistive Device Gait Belt Front Wheeled Walker Comments Mobility Comments greatly improved bed mobility and transfer skills today with steroids in her system. Gait Assessment Gait Gait Assistance Required: Contact Guard Assist 1 Person Assist Distance (Feet) (feet) 20 Able to Maintain Weight Bearing Status Yes During Gait Assistive Devices Assistive Device Gait Belt Front Wheeled Walker Orthotic/Prosthetic Devices or Brace: No Gait Deviations General Gait Pattern Antalgic Decreased Stride Length Decreased Feet Clearance Factors Limiting Gait Function Factors Limiting Gait Function Decreased Activity Tolerance Decreased Strength Pain Poor Balance Poor Safety Awareness Comments Gait Comments the patient did not require verbal cueing today and was able to follow all commands for tasks. PT-Balance Assessment Sitting Balance and Reactions Static Sitting Balance Ability Good Dynamic Sitting Balance Ability Good Standing Balance and Reactions Static Standing Balance Ability Fair Dynamic Standing Balance Ability Fair Device Used FWW M5 PT-IP Objective Assessments Start: 10/11/17 12:46 Freq: NEEDED Status: Active Protocol: Document 10/12/17 10:04 [facility] (Rec: 10/12/17 10:08 [facility] [id number]) Orientation Orientation/Cognition Level of Alertness Alert Safety Awareness Understands Safety Issues Sensation Assessment Sensation Gross Sensation Right LE Impaired Left LE Impaired Sensation Description Numbness M6 PT-IP Treatment Start: 10/11/17 12:46 Freq: NEEDED Status: Active Protocol: Document 10/12/17 09:54 [facility] (Rec: 10/12/17 10:03 [facility] [id number]) Physical Therapy Treatment Exercises Exercises Ankle Pumps Short Arc Quads Education Education Provided Precautions Weight Bearing Status Post-Op Packet Safety M7 PT-IP Assessment and Plan Start: 10/11/17 12:46 Freq: NEEDED Status: Active Protocol: Document 10/12/17 09:54 [facility]17 [id number] Summary Assessment and Plan Potential Rehabilitation Potential Good Status of Condition at Evaluation Stable Summary Impairments Pain ROM Strength Balance Coordination Sensation Transfers Gait Activity Tolerance Progress Towards Goals Progressing Toward Goals Assessment Summary good progress this am with the steroids on board. Razia was able to perform bed mobility with SBA. She transfered from sit -stand with CGA and was able to ambulate around the room with CGA and fww. Her prior level of function was limited mobility due to her decreased sensation in her feet. She understands her precautions of log rolling and avoiding twisting. She would like to go home with her tomorrow and after watching her today I think that would be fine for her to do with home health and her husbands assistance Goals Bed Mobility Goal Standby Assistance Transfer Goal Standby Assistance Front Wheeled Walker Gait Goal Standby Assistance Front Wheel Walker Gait Distance 150 Days to Meet Goals 1 Frequency of Treatment Frequency Of Treatment Twice a Day Treatment Plan Physical Therapy Treatment Plan Bed Mobility Training Transfer Training Gait Training Therapeutic Exercise Balance Retraining Post Op Education Discharge Planning Hot or Cold Pack Neuromuscular Re-ed Coordination Retraining Manual Therapy Recommendations To Nursing Amount of Assist Needed 1 Person Assist Discharge Recommendations PT Discharge Recommendations Home with Assistance
[2017-10-12] MEDS: SENNOSIDES 8.6 MG TABLET 17.2 MG PO (20:44)
[2017-10-13] VITALS (8 sets, daily range): BP systolic 100–159; BP diastolic 58–78; PULSE 61–75; RESP 16–22; TEMP 36.2–36.8; O2SAT 95–99
--- NOTE | 2017-10-13 05:16 | PC.NURSE ---
Addendum entered by Bessie Vaca R.N. 10/13/17 07:56: At 0630, pt set bed alarm off, unwitnessed ambulated to BSC, pt states not feeling well. Unable to describe how she feels, denied chest pain, SOB, pain upon inspiration. VSS, afebrile. HR regular upon auscultation, AE clear throughout lung holliday, equally diminished to bases. Blood glucose finger stick checked for 201. Pt nauseated, dry heaved a few times, no emesis. Last BM 10/08, feeling constipated. Unable to give prn MOM to move bowels as nausea present. Pt again up to BSC to have BM as reported by day RN. Original Note: Sketch Maker- Pt OX4, around 0430, bed alarm on and pt was found sitting at end of bed with foot SCD's off. When asked where she was going, pt responded, I'm going out. Pt denied having to go to the BR. Pt ambulated at bedside using walker, 1PA. Settled back into bed with bed alarm on. Lower mid back dressing replaced as dressing was fall off at proximal end. Cleansed with NS, gauze dried and Replaced with [place] dressing. [place] insitu to 2 sites vertically. Pt tolerated well, no increase in pain. No S/S of infection noted. CMS+, no change from pt's normal chronic neuropathy. No BM post op yet, pt states feeling slightly bloated. Passed a couple fluffs since surgery. Pt voiding well in BSC. Call light within reach.
--- NOTE | 2017-10-13 07:37 | PM.PNPO.1 ---
Subjective Date Patient Seen: 10/13/17 Time Patient Seen: 07:37 Interval history: Pt is S/P L3-[address] Michael. PD 3. Nurse on duty states that she has been confused. Last dose of oxycodone yesterday. Has been up with PT some yesterday. Had a BM ysterday. Not complaining of pain but nausea today. Plan is to d/c home when medically stable. does not want her to go to SNF. Exam Vital Signs (past 8 hours): - 10/12/17 23:40 10/13/17 00:00 10/13/17 05:40 Temperature 98.2 F 97.5 F L Pulse Rate 66 64 Respiratory Rate 16 16 Blood Pressure 142/71 H 155/78 H Pulse Oximetry 97 97 97 10/13/17 06:51 Temperature Pulse Rate 75 Respiratory Rate 22 Blood Pressure 159/76 H Pulse Oximetry 97 Oxygen Delivery Method Room Air Oxygen Flow Rate 0 Narrative Exam Narrative: Pt in bed. Oriented to place. Jose calves soft and nontender. Dressing CDI. 5/5 ankle strength. Abd soft and nondistended. Objective Labs Result Diagrams: 10/11/17 05:51 Assessment & Plan Post-op Postoperative Procedures Operation Date: 10/10/17 07:45 Actual Procedures Side Surgeon p L3-4, L4-5 TLIF w/Posterior Instru Black Michael MD PD3 s/p TLIF by Dr. Michael. Pt slow to mobilize. Will d/c oxycodone. Tylenol prn pain. Zofran po ordered for nausea. BS around 200 this am. Continue DM meds. Mobilize with PT. May need another day in hospital. Plan to d/c home tomorrow if medically stable. Time Spent With Patient 25 - 35 minutes
--- NOTE | 2017-10-13 08:07 | OT.IP.TRT ---
Current Diagnoses Type 2 diabetes mellitus without complications (10/10/17) Spondylolisthesis, lumbar region (10/10/17) Other spondylosis with radiculopathy, lumbar region (10/10/17) Spinal stenosis, lumbar region with neurogenic claudication (10/10/17) Arthrodesis status (10/10/17) Surgery Performed Operation Date: 10/10/17 07:45 Actual Procedures p L3-4, L4-5 TLIF w/Posterior Instru - Black Michael MD Occupational Therapy Treatment Note M2 OT-IP Current Condition Start: 10/11/17 15:32 Freq: Status: Active Protocol: Document 10/11/17 14:15 [facility] (Rec: 10/11/17 15:52 [facility] [id number]) Occupational Therapy Current Condition Current Condition Evaluation Date 10/11/17 Treatment Diagnosis Lumbar Spondylolisthesis Post Operative Precautions Lumbar Precautions Log Roll No Twisting Limit Bending Lifting Restriction of 10 lbs Gait Belt above Incisional Area Weight Bearing Status Weight Bearing Status Weight Bear as Tolerated M3 OT- IP Subjective and Pain Start: 10/11/17 15:32 Freq: Status: Active Protocol: Document 10/13/17 08:06 [facility] (Rec: 10/13/17 08:07 [facility] [id number]) OT- Subjective Occupational Therapy Visit Type Type Patient Refusal Notes Pt feeling nauseous this AM, therefore pt refusing to see OT for treatment.
[2017-10-13] MEDS: ONDANSETRON 4 MG ODT PO (08:08)
[2017-10-13] MEDS: DOCUSATE 100 MG CAPSULE PO ×2 (09:52→20:56)
[2017-10-13] MEDS: ATORVASTATIN 20 MG TABLET PO (09:52)
[2017-10-13] MEDS: METFORMIN HCL 500 MG TABLET 1000 MG PO (09:52)
[2017-10-13] MEDS: CLOPIDOGREL 75 MG TABLET PO (09:52)
[2017-10-13] MEDS: METOPROLOL ER 50 MG TABLET PO (09:52)
[2017-10-13] MEDS: LISINOPRIL 10 MG TABLET PO (09:52)
[2017-10-13] MEDS: SITAGLIPTIN 50 MG TABLET 100 MG PO (09:53)
[2017-10-13] MEDS: ACETAMINOPHEN 325 MG TABLET 650 MG PO ×2 (09:53→18:58)
--- NOTE | 2017-10-13 10:40 | PT.IPTN ---
Current Diagnoses Type 2 diabetes mellitus without complications (10/10/17) Spondylolisthesis, lumbar region (10/10/17) Other spondylosis with radiculopathy, lumbar region (10/10/17) Spinal stenosis, lumbar region with neurogenic claudication (10/10/17) Arthrodesis status (10/10/17) Surgery Performed Operation Date: 10/10/17 07:45 Actual Procedures p L3-4, L4-5 TLIF w/Posterior Stuart Michael MD Physical Therapy Treatment Note M2 PT-IP Current Condition Start: 10/11/17 12:46 Freq: NEEDED Status: Active Protocol: Document 10/12/17 14:07 [facility] (Rec: 10/12/17 14:09 [facility] [id number]) Physical Therapy Current Condition Current Condition Evaluation Date 10/11/17 Treatment Diagnosis s/p L3-4, L4-5 TLIF Onset Date 10/10/17 Precautions Lumbar Precautions Log Roll No Twisting Limit Bending Lifting Restriction of 10 lbs Gait Belt above Incisional Area Weight Bearing Status Weight Bearing Status Weight Bear as Tolerated M3 PT-IP Subjective Start: 10/11/17 12:46 Freq: NEEDED Status: Active Protocol: Document 10/13/17 10:40 [facility] (Rec: 10/13/17 11:27 [facility] [id number]) Subjective Physical Therapy Visit Type Type Treatment Note Visit Start Time 10:40 Visit Stop Time 11:10 Total Visit Minutes 30 Number of COTTAGE CHEESE MAKER Visits 0 Physical Therapy Visit Comments Patient Comments i am not feeling well Therapy Pain Assessment Pain When Pain Assessed During Mobility Pain Present Pain Present Pain Reported Location Back Scale Used pain scale not stated Pain Management Techniques Apply Cold Re-positioning M4 PT-IP Mobility and Gait Start: 10/11/17 12:46 Freq: NEEDED Status: Active Protocol: Document 10/13/17 10:40 [facility] (Rec: 10/13/17 11:27 [facility] [id number]) PT-Bed Mobility Assessment Rolling Type of Rolling Log Rolling Level of Assist Minimal Assistance Supine to Sit Supine to Sit Minimal Assistance Bedrails Scooting Scooting to Edge of Bed Standby Assistance PT-Transfer Assessment Sit to and From Stand Sit to and from Stand Minimal Assistance Equipment Transfer Assistive Device Gait Belt Front Wheeled Walker Transfers Transfer Destination Chair Transfer Technique Stand Step Pivot Transfer Ability Level of Assist Minimal Assistance Gait Assessment Gait Gait Assistance Required: Minimum Assistance Distance (Feet) (feet) 12 Able to Maintain Weight Bearing Status Yes During Gait Assistive Devices Assistive Device Gait Belt Front Wheeled Walker Orthotic/Prosthetic Devices or Brace: No Gait Deviations General Gait Pattern Antalgic Decreased Stride Length Decreased Feet Clearance Factors Limiting Gait Function Factors Limiting Gait Function Decreased Activity Tolerance Decreased Strength Pain Poor Balance Poor Safety Awareness Comments Gait Comments pt ambulated to the toilet and then to chair M5 PT-IP Objective Assessments Start: 10/11/17 12:46 Freq: NEEDED Status: Active Protocol: Document 10/12/17 10:04 [facility] (Rec: 10/12/17 10:08 [facility] [id number]) Orientation Orientation/Cognition Level of Alertness Alert Safety Awareness Understands Safety Issues Sensation Assessment Sensation Gross Sensation Right LE Impaired Left LE Impaired Sensation Description Numbness M6 PT-IP Treatment Start: 10/11/17 12:46 Freq: NEEDED Status: Active Protocol: Document 10/13/17 10:40 [facility] (Rec: 10/13/17 11:27 [facility] [id number]) Physical Therapy Treatment Education Education Provided Precautions Weight Bearing Status Post-Op Packet Safety M7 PT-IP Assessment and Plan Start: 10/11/17 12:46 Freq: NEEDED Status: Active Protocol: Document 10/13/17 10:40 [facility] (Rec: 10/13/17 11:27 [facility] [id number]) PT Summary Assessment and Plan Potential Rehabilitation Potential Fair Summary Impairments Pain ROM Strength Balance Cognition Bed Mobility Transfers Gait Activity Tolerance Progress Towards Goals Slow Progress due to Activity Tolerance Assessment Summary pt is not feeling well today and unable to tolerate much activity. pt continues to require one person min A and max cues for all tasks. d/c plan depending if spouse will be able assist pt safely. caregiver training will be conducted when appropriate. Goals Bed Mobility Goal Standby Assistance Transfer Goal Standby Assistance Front Wheeled Walker Gait Goal Standby Assistance Front Wheel Walker Gait Distance 150 Days to Meet Goals 3 Frequency of Treatment Frequency Of Treatment Twice a Day Treatment Plan Physical Therapy Treatment Plan Bed Mobility Training Transfer Training Gait Training Therapeutic Exercise Balance Retraining Post Op Education Discharge Planning Hot or Cold Pack Neuromuscular Re-ed Coordination Retraining Manual Therapy Recommendations To Nursing Amount of Assist Needed 1 Person Assist Discharge Recommendations PT Discharge Recommendations Home with Assistance
--- NOTE | 2017-10-13 12:21 | PC.NURSE ---
PT REPORTS FEELING NAUSEA AND GEN WEAKNESS SINCE PRIOR TO DAY SHIFT TODAY. UP WITH NOC SHIFT FOR LARGE BM WHICH SHE HAS NOT HAD BM SINCE PRIOR TO SURGERY. THIS SKI PATROLLER NOTIFIED PA. PA ORDERED ZOFRAN. ZOFRAN ADMINISTERED. PT CONTINUES TO FEEL NAUSEA W/O EMESIS THRU-OUT SHIFT. MSG LEFT FOR MD OR PA IN OR DEPT THEY ARE IN SURGERY. GAYLE OLIVIER ON UNIT. THIS WRTIER NOTIFIED OF NAUSEA, GEN WEAKNESS AND DECREASE IN BP FROM THIS MORNINGS ASSESSMENT. PA STATES HE WILL ORDER LAB DRAW. 1215: PT AND SPOUSE REMOVE CHAIR ALARM ON OWN AND GOT UP TO BATHROOM ON OWN. THIS SKI PATROLLER AND DOG TRACK KENNEL MANAGER ADVISED PT AND SPOUSE TO CALL FOR STAFF AND WAIT FOR STAFF TO ASSIST PT WITH MOBILITY. PT VERBALIZED UNDERSTANDING BUT AGAIN AMBULATED OUT OF BATHROOM WITHOUT WAITING FOR STAFF TO ARRIVE. BACK IN CHAIR. CHAIR ALARM ON. DOOR OPEN FOR CLOSER MONITORING.
[2017-10-13 12:49] LABS: Hematocrit 33.8 % (36-46); Hemoglobin 11.5 g/dL (12.0-16.0); Mean Corpuscular Hemoglobin 31.2 PG (26-34); Mean Corpuscular Volume 91.8 fL (80-100); Platelet Count 297 X10^3/uL (150-400); Red Blood Cell Count 3.69 X10^6/uL (4.0-5.2); Red Cell Distribution Width 13.7 % (11.6-14.8); White Blood Cell Count 17.6 X10^3/uL (4.5-11.0)
--- NOTE | 2017-10-13 14:50 | PT.IPTN ---
Current Diagnoses Type 2 diabetes mellitus without complications (10/10/17) Spondylolisthesis, lumbar region (10/10/17) Other spondylosis with radiculopathy, lumbar region (10/10/17) Spinal stenosis, lumbar region with neurogenic claudication (10/10/17) Arthrodesis status (10/10/17) Surgery Performed Operation Date: 10/10/17 07:45 Actual Procedures p L3-4, L4-5 TLIF w/Posterior Stuart Michael MD Physical Therapy Treatment Note M2 PT-IP Current Condition Start: 10/11/17 12:46 Freq: NEEDED Status: Active Protocol: Document 10/12/17 14:07 AMH (Rec: 10/12/17 14:09 AMH [id number]) Physical Therapy Current Condition Current Condition Evaluation Date 10/11/17 Treatment Diagnosis s/p L3-4, L4-5 TLIF Onset Date 10/10/17 Precautions Lumbar Precautions Log Roll No Twisting Limit Bending Lifting Restriction of 10 lbs Gait Belt above Incisional Area Weight Bearing Status Weight Bearing Status Weight Bear as Tolerated M3 PT-IP Subjective Start: 10/11/17 12:46 Freq: NEEDED Status: Active Protocol: Document 10/13/17 14:50 AB (Rec: 10/13/17 16:53 AB [id number]) Subjective Physical Therapy Visit Type Type Treatment Note Visit Start Time 14:50 Visit Stop Time 15:15 Total Visit Minutes 25 Number of CONSTRUCTION IRONWORKER HELPER Visits 0 Physical Therapy Visit Comments Patient Comments pt agreeable to do therapy; spouse present for caregiver training Therapy Pain Assessment Pain When Pain Assessed During Mobility Pain Present Pain Present Pain Reported Location Back Intensity 5 Scale Used Numeric (1 - 10) M4 PT-IP Mobility and Gait Start: 10/11/17 12:46 Freq: NEEDED Status: Active Protocol: Document 10/13/17 14:50 AB (Rec: 10/13/17 16:53 AB [id number]) PT-Bed Mobility Assessment Rolling Type of Rolling Log Rolling Level of Assist Minimal Assistance 1 Person Assistance Supine to Sit Supine to Sit Minimal Assistance 1 Person Assistance Bedrails Sit to Supine Sit to Supine 1 Person Assistance PT-Transfer Assessment Sit to and From Stand Sit to and from Stand Minimal Assistance Equipment Transfer Assistive Device Gait Belt Front Wheeled Walker Orthotic/Prosthetic Devices or Brace: No Comments Mobility Comments caregiver training conducted and spouse was able to assist pt safely Gait Assessment Gait Gait Assistance Required: Contact Guard Assist Distance (Feet) (feet) 75 Able to Maintain Weight Bearing Status Yes During Gait Assistive Devices Assistive Device Gait Belt Front Wheeled Walker Orthotic/Prosthetic Devices or Brace: No Gait Deviations General Gait Pattern Decreased Stride Length Decreased Feet Clearance Factors Limiting Gait Function Factors Limiting Gait Function Decreased Activity Tolerance Decreased Strength Difficulty Following Directions Limited Range of Motion Pain Poor Balance Poor Safety Awareness Comments Gait Comments spouse was able to assist pt with ambulation using FWW M5 PT-IP Objective Assessments Start: 10/11/17 12:46 Freq: NEEDED Status: Active Protocol: Document 10/12/17 10:04 AMH (Rec: 10/12/17 10:08 AMH [id number]) Orientation Orientation/Cognition Level of Alertness Alert Safety Awareness Understands Safety Issues Sensation Assessment Sensation Gross Sensation Right LE Impaired Left LE Impaired Sensation Description Numbness M6 PT-IP Treatment Start: 10/11/17 12:46 Freq: NEEDED Status: Active Protocol: Document 10/13/17 14:50 AB (Rec: 10/13/17 16:53 AB [id number]) Physical Therapy Treatment Education Education Provided Precautions Safety Other Treatments Other Treatment Performed pt requested to use the toilet . spouse was able to assist pt with toileting needs. M7 PT-IP Assessment and Plan Start: 10/11/17 12:46 Freq: NEEDED Status: Active Protocol: Document 10/13/17 14:50 AB (Rec: 10/13/17 16:53 AB [id number]) PT Summary Assessment and Plan Potential Rehabilitation Potential Good Summary Impairments Pain ROM Strength Balance Cognition Bed Mobility Transfers Gait Activity Tolerance Progress Towards Goals Slow Progress due to Pain Slow Progress due to Activity Tolerance Assessment Summary caregiver training conducted and spouse was able to assist pt safely and provided necessary cues to pt. pt may go home with spouse to assist but will require homehealth services. Goals Bed Mobility Goal Standby Assistance Transfer Goal Standby Assistance Front Wheeled Walker Gait Goal Standby Assistance Front Wheel Walker Gait Distance 150 Days to Meet Goals 3 Frequency of Treatment Frequency Of Treatment Twice a Day Treatment Plan Physical Therapy Treatment Plan Bed Mobility Training Transfer Training Gait Training Therapeutic Exercise Balance Retraining Post Op Education Discharge Planning Hot or Cold Pack Neuromuscular Re-ed Coordination Retraining Manual Therapy Recommendations To Nursing Amount of Assist Needed 1 Person Assist Discharge Recommendations PT Discharge Recommendations Home with Assistance Home Health
[2017-10-13 18:45] LABS: Bacteria Urine None Seen
[2017-10-13 18:46] LABS: Appearance Urine UA CLEAR; Bilirubin Urine UA NEGATIVE (NEGATIVE); Color Urine UA YELLOW; Glucose Urine UA NEGATIVE (Normal); Ketones Urine UA NEGATIVE (NEGATIVE); Leukocyte Esterase Urine UA 1+ (NEGATIVE); Nitrite Urine UA Negative (Negative); Occult Blood Urine UA 3+ (Negative); Protein Urine UA TRACE (Negative); Urobilinogen Urine UA 0.2 E.U./dL (0.2)
[2017-10-13 18:54] LABS: Culture Indicated Urine Specimen Cultured; RBC Urine 10-30/HPF (0-5/HPF); WBC Urine 5-10/HPF (0-5/HPF)
[2017-10-13] MEDS: hydrOXYzine pamoate 25 MG CAPSULE PO (19:00)
[2017-10-13] MEDS: SENNOSIDES 8.6 MG TABLET 17.2 MG PO (20:56)
[2017-10-14] VITALS: BP 117/63; PULSE 56; RESP 16; TEMP 37.2; O2SAT 96
[2017-10-14] MEDS: ACETAMINOPHEN 325 MG TABLET 650 MG PO ×2 (05:34→09:45)
[2017-10-14 05:54] LABS: Hemoglobin 11.1 g/dL (12.0-16.0); Mean Corpuscular HGB Conc 33.8 % (30-36); Mean Corpuscular Volume 91.7 fL (80-100); Platelet Count 293 X10^3/uL (150-400); Red Cell Distribution Width 13.5 % (11.6-14.8); White Blood Cell Count 11.8 X10^3/uL (4.5-11.0)
--- NOTE | 2017-10-14 05:55 | PC.NURSE ---
Pt is AxOx3. Incontinent of urine at night. 1x assist to bedside commode. Tylenol given for pain. Dressing to back is clean, dry and intact. VSS. bed alarm on. Labs drawn this morning. Call perez in reach.
[2017-10-14 06:04] VITALS: BP 148/74; PULSE 62; RESP 16; TEMP 36.7; O2SAT 97
[2017-10-14 07:01] LABS: Neutrophils Absolute Manual 7906 /uL (3000-5900); RBC Morphology Normal Morphology; Total Cells Counted 100
[2017-10-14 07:42] VITALS: BP 117/68; PULSE 62; RESP 16; TEMP 36.9; O2SAT 97
--- NOTE | 2017-10-14 09:28 | PM.DS.1 ---
History of Present Illness Date Patient Seen: 10/14/17 Time Patient Seen: 09:39 Chief complaint: L3-4 L4-5 tlif w/posterior instrumentation/notes Narrative: Patient is seen bedside status post TLIF on 10/10/2017. She is postop day 4. She is doing better, her white count has gone down to 12,000 and she is no longer confused. She would like to go home. Discharge Providers Date of admission: 10/10/17 06:31 Primary care physician: Anthony Gonzalez MD Consults: 10/10/17 13:17 Consult to Occupational Therapy Evaluate & Treat Comment: Physician Instructions: Evaluate and treat Consult to Physical Therapy Evaluate & Treat Comment: Physician Instructions: Evaluate and Treat 10/10/17 13:30 Consult to Respiratory Therapy Evaluate & Treat Comment: Physician Instructions: Evaluate and treat Discharge provider: Laina Suárez PA-C Summary Discharge Diagnosis: 1. Spinal lithiasis at L4-5 level 2. Spinal stenosis of lumbar region with neurogenic claudication 3. Osteoarthritis of lumbar spine with radiculopathy Hospital Course: Patient was admitted to surgical floor status post TLIF on 10/10/2017. There were no major complications during surgery. Patient progressed slowly with physical therapy and had some confusion 1st few days in the hospital which resolved with discontinuing her narcotics. She had a minor elevation of her white count to 17,000 on postop day 3 which went back down to 12,000 on postop day 4. She is ready for discharge on 10/14/2017. Status at Discharge Cognitive/behavioral status at discharge: Alert and oriented x3 Functional status at discharge: uses cane/walker Overall status at discharge: patient is progressing back to baseline Time Spent with Patient Less than 30 minutes Exam Vital Signs (past 8 hours): - 10/14/17 06:04 10/14/17 07:42 Temperature 98.0 F 98.5 F Pulse Rate 62 62 Respiratory Rate 16 16 Blood Pressure 148/74 H 117/68 Pulse Oximetry 97 97 Oxygen Delivery Method Room Air Oxygen Flow Rate 0 Narrative Exam Narrative: Patient is well-developed well-nourished in no acute distress. Patient alert and oriented x3. On exam surgical dressing in the lumbar spine is clean dry and intact. No signs of discharge or edema and erythema surrounding the area. She is neurovascularly intact her lower extremities. Calves are soft and compressible. Objective Labs Result Diagrams: 10/14/17 05:17 Labs: Laboratory Results - last 24 hr 10/13/17 10/13/17 10/14/17 12:40 17:25 05:17 WBC 17.6 H 11.8 H RBC 3.69 L 3.60 L Hgb 11.5 L 11.1 L Hct 33.8 L 33.0 L MCV 91.8 91.7 MCH 31.2 31.0 MCHC 34.0 33.8 RDW 13.7 13.5 Plt Count 297 293 Total Counted 100 Seg Neutrophils % 67.0 Lymphocytes % (Manual) 25.0 Monocytes % (Manual) 8.0 Neutrophils # (Manual) 7906 H RBC Morphology Normal morphology Urine Color Yellow Urine Appearance Clear Urine pH 5.0 Ur Specific [place] 1.020 Urine Protein Trace H Urine Glucose (UA) Negative Urine Ketones Negative Urine Occult Blood 3+ H Urine Nitrate Negative Urine Bilirubin Negative Urine Urobilinogen 0.2 Ur Leukocyte Esterase 1+ H Urine RBC 10-30/hpf H Urine WBC 5-10/hpf H Urine Bacteria None seen Ur Culture Indicated? Specimen cultured Micro UA Comment Not Reportable Discharge Plan Discharge Plan Patient Disposition: Home, Self-Care Discharge Med Rec/Prescriptions Prescriptions: New acetaminophen 325 mg Tablet 650 mg PO Q6HR PRN (Reason: Pain, Mild (1-3)) Qty: 0 RF: 0 docusate sodium 100 mg Capsule 100 mg PO BID Qty: 0 RF: 0 hydroxyzine pamoate 25 mg Capsule 25 mg PO Q4HR PRN (Reason: nausea, muscles spasms) Qty: 50 RF: 0 tramadol 50 mg tablet 50 mg PO Q6H PRN (Reason: pain) Qty: 60 RF: 0 Continue metformin 500 mg Tablet 1,000 mg PO BID RF: 0 atorvastatin 20 mg Tablet 20 mg PO QAM RF: 0 metoprolol succinate 50 mg Tablet Extended Release 24 Hr 50 mg PO QAM RF: 0 clopidogrel 75 mg Tablet 75 mg PO DAILY RF: 0 aspirin 81 mg Tablet,Delayed Release (Dr/Ec) 81 mg PO QPM RF: 0 lisinopril 10 mg Tablet 10 mg PO QAM RF: 0 nitroglycerin 0.4 mg Tablet, Sublingual 0.4 mg SUBLINGUAL Q5-15M PRN (Reason: Chest Pain) RF: 0 sitagliptin [Januvia] 100 mg Tablet 100 mg PO QAM RF: 0 Discontinued acetaminophen 500 mg Tablet 1,000 mg PO BID RF: 0 Follow up/Referrals: [facility] [Provider Group] - 10/26/17 1:20 pm (With Iris Guaman at the [employer] office.) Provider Discharge Instructions Diet: Diet as Tolerated Activity: WBAT, no bending/twisting, limited lifting to 10 lbs or less. Wound Care Report to your healthcare provider any signs of infection, such as:: chills, fever, night sweats, increased pain and unusual drainage Dressing: Keep dressing on until post-op appointment. Keep clean and dry. Visit Report/Discharge Packet Instructions: DI for Transforaminal Lumbar Interbody Fusion Discharge Data Primary Care Provider: Anthony Gonzalez V Attending Provider: Black Michael Admit Date/Time: 10/10/17 06:31 Quality VTE Deep Vein Thrombosis/Pulmonary Embolism Present on Admission: No
[2017-10-14] MEDS: DOCUSATE 100 MG CAPSULE PO (09:40)
[2017-10-14] MEDS: CLOPIDOGREL 75 MG TABLET PO (09:40)
[2017-10-14] MEDS: ATORVASTATIN 20 MG TABLET PO (09:41)
[2017-10-14] MEDS: LISINOPRIL 10 MG TABLET PO (09:43)
[2017-10-14] MEDS: METOPROLOL ER 50 MG TABLET PO (09:43)
--- NOTE | 2017-10-14 09:50 | PT.IPTN ---
Current Diagnoses Type 2 diabetes mellitus without complications (10/10/17) Spondylolisthesis, lumbar region (10/10/17) Other spondylosis with radiculopathy, lumbar region (10/10/17) Spinal stenosis, lumbar region with neurogenic claudication (10/10/17) Arthrodesis status (10/10/17) Surgery Performed Operation Date: 10/10/17 07:45 Actual Procedures p L3-4, L4-5 TLIF w/Posterior Stuart Michael MD Physical Therapy Treatment Note M2 PT-IP Current Condition Start: 10/11/17 12:46 Freq: NEEDED Status: Active Protocol: Document 10/14/17 09:50 DCW (Rec: 10/14/17 11:02 DCW [id number]) Physical Therapy Current Condition Current Condition Evaluation Date 10/11/17 Treatment Diagnosis s/p L3-4, L4-5 TLIF Onset Date 10/10/17 Precautions Lumbar Precautions Log Roll No Twisting Limit Bending Lifting Restriction of 10 lbs Gait Belt above Incisional Area Weight Bearing Status Weight Bearing Status Weight Bear as Tolerated M3 PT-IP Subjective Start: 10/11/17 12:46 Freq: NEEDED Status: Active Protocol: Document 10/14/17 09:50 DCW (Rec: 10/14/17 11:02 DCW [id number]) Subjective Physical Therapy Visit Type Type Treatment Note Visit Start Time 09:50 Visit Stop Time 10:18 Total Visit Minutes 28 Number of PRODUCTION BOW MAKER Visits 0 Physical Therapy Visit Comments Patient Comments Pt reports she just got up into her chair because she was tired of laying in bed M4 PT-IP Mobility and Gait Start: 10/11/17 12:46 Freq: NEEDED Status: Active Protocol: Document 10/14/17 09:50 DCW (Rec: 10/14/17 11:02 DCW [id number]) PT-Transfer Assessment Sit to and From Stand Sit to and from Stand Contact Guard Assistance Equipment Transfer Assistive Device Gait Belt Front Wheeled Walker Orthotic/Prosthetic Devices or Brace: No Gait Assessment Gait Gait Assistance Required: Contact Guard Assist Distance (Feet) (feet) 270 Able to Maintain Weight Bearing Status Yes During Gait Assistive Devices Assistive Device Gait Belt Front Wheeled Walker Orthotic/Prosthetic Devices or Brace: No Gait Deviations General Gait Pattern Decreased Stride Length Decreased Feet Clearance Factors Limiting Gait Function Factors Limiting Gait Function Decreased Activity Tolerance Decreased Strength Difficulty Following Directions Limited Range of Motion Pain Poor Balance Poor Safety Awareness Comments Gait Comments Pt did well keeping pace and avoiding obstacles while distracted by conversation M5 PT-IP Objective Assessments Start: 10/11/17 12:46 Freq: NEEDED Status: Active Protocol: Document 10/12/17 10:04 AMH (Rec: 10/12/17 10:08 AMH [id number]) Orientation Orientation/Cognition Level of Alertness Alert Safety Awareness Understands Safety Issues Sensation Assessment Sensation Gross Sensation Right LE Impaired Left LE Impaired Sensation Description Numbness M6 PT-IP Treatment Start: 10/11/17 12:46 Freq: NEEDED Status: Active Protocol: Document 10/13/17 14:50 AB (Rec: 10/13/17 16:53 AB [id number]) Physical Therapy Treatment Education Education Provided Precautions Safety Other Treatments Other Treatment Performed pt requested to use the toilet . spouse was able to assist pt with toileting needs. M7 PT-IP Assessment and Plan Start: 10/11/17 12:46 Freq: NEEDED Status: Active Protocol: Document 10/14/17 09:50 DCW (Rec: 10/14/17 11:02 DCW [id number]) PT Summary Assessment and Plan Potential Rehabilitation Potential Good Summary Impairments Pain ROM Strength Balance Cognition Bed Mobility Transfers Gait Activity Tolerance Progress Towards Goals Slow Progress due to Pain Slow Progress due to Activity Tolerance Assessment Summary Pt continues to improve following TLIF, however will still benefit from home health services. Pt tolerating increased activity levels, and greatly increased her gait distance. Goals Bed Mobility Goal Standby Assistance Transfer Goal Standby Assistance Front Wheeled Walker Gait Goal Standby Assistance Front Wheel Walker Gait Distance 150 Days to Meet Goals 3 Frequency of Treatment Frequency Of Treatment Twice a Day Treatment Plan Physical Therapy Treatment Plan Bed Mobility Training Transfer Training Gait Training Therapeutic Exercise Balance Retraining Post Op Education Discharge Planning Hot or Cold Pack Neuromuscular Re-ed Coordination Retraining Manual Therapy Recommendations To Nursing Amount of Assist Needed 1 Person Assist Discharge Recommendations PT Discharge Recommendations Home with Assistance Home Health
[2017-10-14 10:24] VITALS: O2SAT 99
--- NOTE | 2017-10-14 11:02 | PT.IPTN ---
Current Diagnoses Type 2 diabetes mellitus without complications (10/10/17) Spondylolisthesis, lumbar region (10/10/17) Other spondylosis with radiculopathy, lumbar region (10/10/17) Spinal stenosis, lumbar region with neurogenic claudication (10/10/17) Arthrodesis status (10/10/17) Surgery Performed Operation Date: 10/10/17 07:45 Actual Procedures p L3-4, L4-5 TLIF w/Posterior Stuart Michael MD Physical Therapy Treatment Note M2 PT-IP Current Condition Start: 10/11/17 12:46 Freq: NEEDED Status: Active Protocol: Document 10/14/17 09:50 DCW (Rec: 10/14/17 11:02 DCW [id number]) Physical Therapy Current Condition Current Condition Evaluation Date 10/11/17 Treatment Diagnosis s/p L3-4, L4-5 TLIF Onset Date 10/10/17 Precautions Lumbar Precautions Log Roll No Twisting Limit Bending Lifting Restriction of 10 lbs Gait Belt above Incisional Area Weight Bearing Status Weight Bearing Status Weight Bear as Tolerated M3 PT-IP Subjective Start: 10/11/17 12:46 Freq: NEEDED Status: Active Protocol: Document 10/14/17 09:50 DCW (Rec: 10/14/17 11:02 DCW [id number]) Subjective Physical Therapy Visit Type Type Treatment Note Visit Start Time 09:50 Visit Stop Time 10:18 Total Visit Minutes 28 Number of HORTICULTURAL FARMER Visits 0 Physical Therapy Visit Comments Patient Comments Pt reports she just got up into her chair because she was tired of laying in bed M4 PT-IP Mobility and Gait Start: 10/11/17 12:46 Freq: NEEDED Status: Active Protocol: Document 10/14/17 09:50 DCW (Rec: 10/14/17 11:02 DCW [id number]) PT-Transfer Assessment Sit to and From Stand Sit to and from Stand Contact Guard Assistance Equipment Transfer Assistive Device Gait Belt Front Wheeled Walker Orthotic/Prosthetic Devices or Brace: No Gait Assessment Gait Gait Assistance Required: Contact Guard Assist Distance (Feet) (feet) 270 Able to Maintain Weight Bearing Status Yes During Gait Assistive Devices Assistive Device Gait Belt Front Wheeled Walker Orthotic/Prosthetic Devices or Brace: No Gait Deviations General Gait Pattern Decreased Stride Length Decreased Feet Clearance Factors Limiting Gait Function Factors Limiting Gait Function Decreased Activity Tolerance Decreased Strength Difficulty Following Directions Limited Range of Motion Pain Poor Balance Poor Safety Awareness Comments Gait Comments Pt did well keeping pace and avoiding obstacles while distracted by conversation M5 PT-IP Objective Assessments Start: 10/11/17 12:46 Freq: NEEDED Status: Active Protocol: Document 10/12/17 10:04 AMH (Rec: 10/12/17 10:08 AMH [id number]) Orientation Orientation/Cognition Level of Alertness Alert Safety Awareness Understands Safety Issues Sensation Assessment Sensation Gross Sensation Right LE Impaired Left LE Impaired Sensation Description Numbness M6 PT-IP Treatment Start: 10/11/17 12:46 Freq: NEEDED Status: Active Protocol: Document 10/13/17 14:50 AB (Rec: 10/13/17 16:53 AB [id number]) Physical Therapy Treatment Education Education Provided Precautions Safety Other Treatments Other Treatment Performed pt requested to use the toilet . spouse was able to assist pt with toileting needs. M7 PT-IP Assessment and Plan Start: 10/11/17 12:46 Freq: NEEDED Status: Active Protocol: Document 10/14/17 09:50 DCW (Rec: 10/14/17 11:02 DCW [id number]) PT Summary Assessment and Plan Potential Rehabilitation Potential Good Summary Impairments Pain ROM Strength Balance Cognition Bed Mobility Transfers Gait Activity Tolerance Progress Towards Goals Slow Progress due to Pain Slow Progress due to Activity Tolerance Assessment Summary Pt continues to improve following TLIF, however will still benefit from home health services. Pt tolerating increased activity levels, and greatly increased her gait distance. Goals Bed Mobility Goal Standby Assistance Transfer Goal Standby Assistance Front Wheeled Walker Gait Goal Standby Assistance Front Wheel Walker Gait Distance 150 Days to Meet Goals 3 Frequency of Treatment Frequency Of Treatment Twice a Day Treatment Plan Physical Therapy Treatment Plan Bed Mobility Training Transfer Training Gait Training Therapeutic Exercise Balance Retraining Post Op Education Discharge Planning Hot or Cold Pack Neuromuscular Re-ed Coordination Retraining Manual Therapy Recommendations To Nursing Amount of Assist Needed 1 Person Assist Discharge Recommendations PT Discharge Recommendations Home with Assistance Home Health
--- NOTE | 2017-10-14 13:48 | CM.DPC ---
DC Note: Updated [place] that pt was going home today. Faxed med list to Mon[facility] at [facility] per her request. Pt will have f/u by Tuesday for RN/PT. Pt aware and agreeable to plan. JW
== END 2017-10-14 11:35 | disposition home health service (06) | DRG 454 ==
PROVIDERS: Physician Assistant; Admitting Provider Orthopaedic Surgery Orthopaedic Surgery of the Spine; Family Provider Orthopaedic Surgery Orthopaedic Surgery of the Spine; PCP Internal Medicine; Visit Provider Orthopaedic Surgery Orthopaedic Surgery of the Spine
PROC: 0SG10AJ Fusion of 2 or more Lumbar Vertebral Joints with Interbody Fusion Device, Posterior Approach, Anterior Column, Open Approach (ICD-10-PCS; principal; 2017-10-10 07:45)
DX: M43.16 Spondylolisthesis, lumbar region (principal); I42.9 Cardiomyopathy, unspecified; M47.26 Other spondylosis with radiculopathy, lumbar region; M48.062 Spinal stenosis, lumbar region with neurogenic claudication; I10 Essential (primary) hypertension; Z79.84 Long term (current) use of oral hypoglycemic drugs; I25.10 Atherosclerotic heart disease of native coronary artery without angina pectoris; E11.40 Type 2 diabetes mellitus with diabetic neuropathy, unspecified; R11.0 Nausea; R41.0 Disorientation, unspecified; T40.605A Adverse effect of unspecified narcotics, initial encounter
CPT/HCPCS: 36415; 72100; 76001; 81001; 85014; 85018; 85025; 85027; 87086; 94760; 94762; 97116; 97162; 97166; 97530; C1776; C9290; J0131; J0330; J1170; J2250; J2704; J3010

== ENCOUNTER 2017-11-30 08:06 | Day surgery (SDC) | payer MEDICARE, OTHER, SELFPAY ==
[2017-10-10 13:30] VITALS: BMI 33.9
[2017-11-17 10:45] VITALS: BMI 32.8
[2017-11-30] VITALS (16 sets, daily range): BP systolic 102–144; BP diastolic 48–74; PULSE 50–66; RESP 9–18; TEMP 35.9–36.7; O2SAT 92–99; BMI 32.8
[2017-11-30] MEDS: LACTATED RINGERS 1,000 ML 42 ML IV (09:05)
--- NOTE | 2017-11-30 09:10 | DI.RAD.S_ITS ---
PROCEDURE: XR KNEE LT 1TO2V INDICATIONS: prosthesis placement, total left knee TECHNIQUE: 2 view(s) of the knee acquired. COMPARISON: [facility], CR, XR BONE LENGTH SCANOGRAM, 09/22/2017, 14:09. [facility], MR, MR KNEE LT WO CON, 09/22/2017, 12:55. FINDINGS: Bones: Patient is status post knee joint arthroplasty. Hardware components are in expected positions. Visualized bony structures are intact. Soft tissues: Overlying postoperative changes are noted. IMPRESSION: Left knee prosthesis in anatomic alignment. Dictated by: Orlando Oetro M.D. on 11/30/2017 at 13:17 Approved by: Orlando Otero M.D. on 11/30/2017 at 13:18
[2017-11-30] MEDS: PREGABALIN 75 MG CAPSULE PO (09:14)
[2017-11-30] MEDS: CELECOXIB 200 MG CAPSULE PO (09:36)
--- NOTE | 2017-11-30 09:37 | SUR.PREOP ---
Dr. Dias okd giving celebrex and advised to hold the tylenol because patient took 1000 mg at home this morning.
--- NOTE | 2017-11-30 09:39 | PM.PREOP ---
Pre-operative Note Interval Note Pre-op Check: Yes History & Physical Reviewed by Physician and Yes Exam Performed Changes: No
--- NOTE | 2017-11-30 09:58 | P.OP_ITS ---
Operative Date/Time/Diagnoses Date of procedure: 11/30/17 Time of procedure: 11:52 Pre-op diagnosis: LEFT KNEE OSTEOARTHRITIS Post-op diagnosis: same Procedure & Clinicians Procedure: LEFT TOTAL KNEE ARTHROPLASTY Same procedure as scheduled: Yes Indications: The patient presents today for total knee arthroplasty after failure of conservative treatment. The patient still has a small amount of her spine incision that is granulating in. She also has a superficial wound on her right ankle. We discussed that these wounds along with her diabetes to cause a high risk of infection. She would still like to proceed with surgery today which I think is a reasonable as both wounds are healing well without signs of infection. The nature of the procedure including the risks and benefits, alternatives, postoperative course and expected outcome were discussed and all questions answered. Consent was obtained. Operative site confirmed and marked. Surgeon: Pepito Dias Gear Tooth Lapping Machine Operator: Daniel Coto Anesthesia Type: General, Peripheral nerve block and Local Operative Notes Findings: Severe osteoarthritis with varus alignment. Closure Type: primary Specimen(s): none sent Implants & Drains: Pepe and Nephjessica Malone BCS: 5 femoral component, 5 tibial component, 9 mm BCS polyethylene tray and 35 x 7.5 mm round patella Applied: implant(s) Estimated Blood Loss (mL): 40 Blood products transfused: none Tourniquet time (min): 7 Procedure in detail: The patient was taken to the operative suite and placed under [anesthesia]. The patient was given prophylactic antibiotics prior to surgery. The patient was also given tranexamic acid, 1 g, just prior to surgery for postoperative hemostasis. [The lateral knee was prepped and the joint injected with 20 mL of 1% Lidocaine with epinephrine. ] The knee was then prepped and draped in usual sterile fashion. The leg was exsanguinated with an Esmarch dressing and the tourniquet raised to [250] torr. A 15 cm anterior incision was made. Next a medial trivector arthrotomy was made. The extensor mechanism was marked to ensure accurate repair. Initial exposing dissection was carried out medially and laterally. The knee was then extended and the patellar thickness was measured and a cut made removing approximately 7 mm of bone[ with a goal of restoring normal patellar thickness] . The patella was then sized and drilled. Some excess lateral bone was excised and the patellofemoral ligament released. The tourniquet was then released. The knee was then flexed and the Pe[employer] femoral guide was placed. The anterior pins were placed and the distal rotation holes drilled. The distal cutting guide was placed and the templated distal femoral cut was made. The templating cutting block was then placed and the anterior, posterior and chamfer cuts made. The Pe[employer] tibial guide was placed and the alignment checked along the axis of the proximal tibial with a sina. The proximal tibial cut was then made with an oscillating saw. All meniscus and bony debris was then removed. Flexion extension gaps were checked. The knee was somewhat tight laterally both in extension and especially flexion. A 15 blade was used to release the lateral capsule with a high Kristie technique as well as the popliteus tendon. This equalized spaces. The soft tissues were then injected with a combination of [20 mL of half percent Marcaine with epinephrine and 20 mL of Exparel]. The trial components were then placed. The knee went into full extension and flexion beyond 120?. There was [excellent] medial- lateral balance throughout motion. Patellar tracking was [excellent]. The trial components were removed and size is confirmed for the final implants. The knee was then exsanguinated with an Esmarch dressing and the tourniquet reapplied for cementing. The knee was cleansed with Pulsavac irrigation and dried. The final components were cemented in with high viscosity vacuum mixed bone cement with antibiotics. The knee was held in extension and the patellar clamp until the cement had adequately cured. The knee was then irrigated with dilute Betadine solution. The extensor mechanism was closed with 5 interrupted #1 Vicryl sutures in 90 degrees of flexion. [The joint was then injected with a combination of 1 g of tranexamic acid and 20 mL of quarter percent Marcaine with epinephrine.] The subcutaneous tissue was closed with 2-0 Vicryl. The skin was closed with [ kofi and surgical adhesive]. [ An Aquacell] dressing and Edgar wrap were then applied. Complications: none Condition: stable Disposition: PACU Plan for aftercare: [facility] protocol. Discharged to home in 1-2 days. Will start physical therapy within the next week. Clinic follow-up in 5-7 days.
[2017-11-30] MEDS: CLINDAMYCIN 900 MG/50 ML PIGGYBACK 50 MG IV ×2 (10:21→16:57)
[2017-11-30] MEDS: LIDOCAINE 1% W/EPI INJ 20 ML INJ (10:36)
--- NOTE | 2017-11-30 10:38 | SUR.PREOP ---
Block start time [10:00] . Monitoring initiated and maintained throughout procedure. Oxygen and medications given per anesthesiologist instructions. Patient remained stable throughout procedure, no adverse reactions noted. Block end time [10:15].
--- NOTE | 2017-11-30 10:59 | SUR.OPER ---
Supine on padded OR bed. Pillow under head, arms secured on padded armboards <90 degree abduction. Safety belt across torso. Non-operative leg secured with tape over blanket over lower leg. Operative leg secured in Raza positioner. Foam padded brace at thigh of operative leg.
--- NOTE | 2017-11-30 11:03 | PM.PROC.1 ---
Procedures Date/Time Date of procedure: 11/30/17 Time of procedure: 10:10 General Procedure description: Ultrasound guided adductor canal nerve block for post op pain control after left total knee replacement by Dr. Dias. Risk and benefits of procedure discussed with patient. ASA monitoring applied to patient. O2 given via nasal cannula. 2 mg Versed and 50 mcg fentanyl given for procedural sedation. Skin site was prepped with chlorhexidine and allowed to fully dry. Sterile gloves, mask, hat and probe cover were used to maintain sterility. 2% lidocaine and 30ga needle was used to make a small skin wheal at needle insertion site. Under ultrasound guidance, a 21ga 100mm Pajunk needle was directed into the adductor canal near femoral artery and saphenous nerve at the level of mid thigh. Patient reported no parasthesias. After negative aspiration, 20 mL 0.5% ropivicaine and 10mg dexamethasone were injected around saphenous nerve. Patient tolerated procedure well. Unable to capture image of ultrasound procedure do to machine restart prior to transfering saved image.
[2017-11-30] MEDS: BUPIVACAINE 0.5% (PF) 10 ML, TRANEXAMIC ACID 1,000 MG, SODIUM CHLORIDE 0.9% 20 ML INJ (11:07)
[2017-11-30] MEDS: BUPIVACAINE 0.5% W/ EPI (PF) 20 ML, BUPIVACAINE LIPOSOME 266 MG, SODIUM CHLORIDE 0.9% 2... INJ (11:09)
[2017-11-30] MEDS: POVIDONE-IODINE 15 ML, SODIUM CHLORIDE 0.9% 250 ML TOP (11:10)
--- NOTE | 2017-11-30 14:42 | PT.IIE ---
Current Diagnoses Unilateral primary osteoarthritis, left knee (11/30/17) Surgery Performed Operation Date: 11/30/17 10:15 Actual Procedures p Total Knee Arthroplasty(Left) - Pepito Dias MD Surgical History (Last Updated 11/17/17 @ 12:07 by Radha Mathew, RN) History of lumbar fusion (Acute) Hx of heart artery stent (Acute) Hx of tonsillectomy (Acute) S/P foot surgery, left (Acute) S/P foot surgery, right (Acute) Status post cataract extraction of both eyes with insertion of intraocular lens (Acute) Medical History (Last Updated 11/17/17 @ 12:07 by Radha Mathew RN) Amputated toe of left foot (Acute) CAD (coronary artery disease) (Acute) CVA (cerebral vascular accident) (Acute) Cardiomyopathy (Acute) Carotid arterial disease (Acute) Cerebral vascular disease (Acute) Chronic renal insufficiency (Acute) DDD (degenerative disc disease) (Acute) Diabetes (Acute) Foot ulcer due to secondary DM (Acute) HTN (hypertension) (Acute) Hyperlipidemia (Acute) Incontinence in female (Acute) Lumbar stenosis (Acute) Peripheral neuropathy (Acute) Physical Therapy Inpatient Evaluation/Re-Eval M1 PT/OT-IP Prior Functional Status Start: 11/30/17 16:57 Freq: NEEDED Status: Active Protocol: Document 11/30/17 14:42 MDD (Rec: 11/30/17 17:06 MDD [email or web address]) Medical Review Prior Functional Status Medical History Reviewed Yes Communication normal Mobility and Gait independent with FWW Activities of Daily Living and IADL's independent Social History Household Members spouse Living Arrangements House Number of Floors (Floors) One Floor Number of Stairs To Enter/Railing? no steps to enter Home Environment Standard Height Toilet Walk in Shower Home Equipment Front Wheel Walker Four Wheel Walker Quad Cane Straight Cane Bedside Commode Raised Toilet Seat w/Armrests Employment Status Retired Additional Social History Comment Pt lives with her , Eddie in [facility]. She uses a commode as a shower chair. Their bed is fairly high from the ground. Pt had a L3-4, L4 -5 lumbar laminectomy 6 weeks ago. M2 PT-IP Current Condition Start: 11/30/17 16:57 Freq: NEEDED Status: Active Protocol: Document 11/30/17 14:42 MDD (Rec: 11/30/17 17:06 MDD [email or web address]) Physical Therapy Current Condition Current Condition Evaluation Date 11/30/17 Treatment Diagnosis s/p L TKA Onset Date 11/30/17 Precautions Lumbar Precautions Log Roll No Twisting Limit Bending Lifting Restriction of 10 lbs Gait Belt above Incisional Area Weight Bearing Status Weight Bearing Status Weight Bear as Tolerated M3 PT-IP Subjective Start: 11/30/17 16:57 Freq: NEEDED Status: Active Protocol: Document 11/30/17 14:42 MDD (Rec: 11/30/17 17:06 MDD [email or web address]) Subjective Physical Therapy Visit Type Type Initial Evaluation Visit Start Time 16:05 Visit Stop Time 16:42 Total Visit Minutes 37 Notes BP in supine: 136/62 mm Hg BP sitting EOB: 133/79 mm Hg Pt found on 2L/min supplemental oxygen with O2 sats 98-100%. RA - 98% at rest. Number of FREELANCE COURT REPORTER Visits 0 Therapy Pain Assessment Pain When Pain Assessed After Treatment Pain Present Pain Present Pain Reported Location Back Intensity 6 Scale Used Numeric (1 - 10) Description Aching Pain Management Techniques Apply Cold Timing of Activity with Medications M4 PT-IP Mobility and Gait Start: 11/30/17 16:57 Freq: NEEDED Status: Active Protocol: Document 11/30/17 14:42 MDD (Rec: 11/30/17 17:06 MDD [email or web address]) PT-Bed Mobility Assessment Rolling Type of Rolling Roll to Left Level of Assist Independent Supine to Sit Supine to Sit Contact Guard Assistance Bedrails Scooting Scooting to Edge of Bed Contact Guard Assistance PT-Transfer Assessment Sit to and From Stand Sit to and from Stand Minimal Assistance Equipment Transfer Assistive Device Gait Belt Front Wheeled Walker Transfers Transfer Destination Toilet Transfer Technique Stand Step Pivot Transfer Ability Level of Assist Contact Guard Assistance Gait Assessment Gait Gait Assistance Required: Contact Guard Assist Distance (Feet) (feet) 35 Able to Maintain Weight Bearing Status Yes During Gait Assistive Devices Assistive Device Gait Belt Front Wheeled Walker Gait Deviations General Gait Pattern Antalgic Flexed Trunk Step-to Gait PT-Balance Assessment Sitting Balance and Reactions Static Sitting Balance Ability Normal Dynamic Sitting Balance Ability Normal Standing Balance and Reactions Static Standing Balance Ability Good Dynamic Standing Balance Ability Good M5 PT-IP Objective Assessments Start: 11/30/17 16:57 Freq: NEEDED Status: Active Protocol: Document 11/30/17 14:42 MDD (Rec: 11/30/17 17:06 MDD [email or web address]) Orientation Orientation/Cognition Level of Alertness Alert Orientation Name Age Birthday Month Date Year Day of Week Place Situation Language Function Ability No Deficits Noted Safety Awareness Understands Safety Issues Memory Description No Deficits Noted Gross Range of Motion Lower Extremity ROM Assessment Within Functional Limits Strength Lower Extremity Strength Assessment Within Functional Limits Sensation Assessment Sensation Gross Sensation Right LE Impaired Left LE Impaired Light Touch Impaired Sensation Description Paresthesia Numbness Comments Sensation Comments Pt w/ pre-existing peripheral neuropathy - impaired light touch sensation B LE's to mid mercado M6 PT-IP Treatment Start: 11/30/17 16:57 Freq: NEEDED Status: Active Protocol: Document 11/30/17 14:42 MDD (Rec: 11/30/17 17:06 MDD [email or web address]) Physical Therapy Treatment Exercises Knee ROM Measurement -10 to 65 Education Education Provided Precautions Weight Bearing Status Post-Op Packet Safety M7 PT-IP Assessment and Plan Start: 11/30/17 16:57 Freq: NEEDED Status: Active Protocol: Document 11/30/17 14:42 MDD (Rec: 11/30/17 17:06 MDD [email or web address]) PT Summary Assessment and Plan Potential Rehabilitation Potential Excellent Status of Condition at Evaluation Stable Summary Impairments Pain ROM Bed Mobility Transfers Gait Activity Tolerance Progress Towards Goals Progressing Toward Goals Assessment Summary Pt demonstrates ability to perform bed mobility this day with CGA, sit to stand with min A (from low toilet) and gait with CGA. She presents below her prior functional baseline and should benefit from continued inpatient PT to maximize function prior to d/ c home. Goals Bed Mobility Goal Independent Transfer Goal Independent Gait Goal Independent Front Wheel Walker Gait Distance 100 Days to Meet Goals 3 Frequency of Treatment Frequency Of Treatment Twice a Day Treatment Plan Physical Therapy Treatment Plan Bed Mobility Training Transfer Training Gait Training Therapeutic Exercise Post Op Education Recommendations To Nursing Amount of Assist Needed 1 Person Assist Discharge Recommendations PT Discharge Recommendations Home with Assistance Outpatient PT
[2017-11-30] MEDS: LACTATED RINGERS 1,000 ML 125 ML IV (14:57)
--- NOTE | 2017-11-30 15:30 | PC.NURSE ---
Pt arrived to the AC floor via PACU at approx 1330. Pt was A & O x 3. She denied pain to left knee. Left knee dressing CDI. SCD's applied. LR started at 125mls/hr as ordered. Pt has required 2L O2 while asleep as she desats into the upper 80's on RA. pt has been oriented to the room.
[2017-11-30] MEDS: ACETAMINOPHEN 325 MG TABLET 975 MG PO ×2 (16:57→21:06)
[2017-11-30] MEDS: ATORVASTATIN 20 MG TABLET PO (16:59)
[2017-11-30] MEDS: SITAGLIPTIN 50 MG TABLET 100 MG PO (16:59)
[2017-11-30] MEDS: METFORMIN HCL 500 MG TABLET 1000 MG PO (17:00)
[2017-11-30] MEDS: OXYCODONE IR 5 MG TABLET PO (17:01)
[2017-11-30] MEDS: ASPIRIN EC 81 MG TABLET PO (21:06)
[2017-12-01] MEDS: CLINDAMYCIN 900 MG/50 ML PIGGYBACK 50 MG IV ×2 (01:00→09:09)
[2017-12-01] MEDS: LACTATED RINGERS 1,000 ML 125 ML IV (01:37)
[2017-12-01] MEDS: OXYCODONE IR 5 MG TABLET PO ×2 (02:29→09:07)
[2017-12-01 05:21] VITALS: BP 116/61; PULSE 60; RESP 18; TEMP 36.2; O2SAT 98
[2017-12-01 05:30] LABS: Hematocrit 30.8 % (36-46); Hemoglobin 10.3 g/dL (12.0-16.0)
[2017-12-01 08:00] VITALS: BP 112/54; PULSE 56; RESP 18; TEMP 36.1; O2SAT 100
--- NOTE | 2017-12-01 08:26 | CM.DANOTE ---
DCP: Case received, EMR reviewed and met with patient. Introduced self and role. DCP template completed with information currently available. Patient is a 72 year old female who admitted yesterday morning to the care of the hospitalist team. PCP: Dr. Goznalez. Payer: confirmed: Medicare/Commercial Insurance. Patient came in for left total knee arthoplasty. Patient lives in [facility] with her spouse. Is independent at home, but does use a walker. P: Plan is for patient to go home. May be going to outpatient physical therapy. Day Menard RN/Hardware Technician
[2017-12-01] MEDS: ACETAMINOPHEN 325 MG TABLET 975 MG PO (09:06)
[2017-12-01] MEDS: METOPROLOL ER 50 MG TABLET PO (09:10)
[2017-12-01] MEDS: LISINOPRIL 10 MG TABLET PO (09:10)
[2017-12-01] MEDS: METFORMIN HCL 500 MG TABLET 1000 MG PO (09:10)
[2017-12-01] MEDS: ATORVASTATIN 20 MG TABLET PO (09:11)
[2017-12-01] MEDS: SITAGLIPTIN 50 MG TABLET 100 MG PO (09:11)
[2017-12-01] MEDS: ASPIRIN EC 81 MG TABLET PO (09:11)
--- NOTE | 2017-12-01 09:30 | PT.IPTN ---
Current Diagnoses Unilateral primary osteoarthritis, left knee (11/30/17) Surgery Performed Operation Date: 11/30/17 10:15 Actual Procedures p Total Knee Arthroplasty(Left) - Pepito Dias MD Physical Therapy Treatment Note M2 PT-IP Current Condition Start: 11/30/17 16:57 Freq: NEEDED Status: Active Protocol: Document 11/30/17 14:42 MDD (Rec: 11/30/17 17:06 MDD [email or web address]) Physical Therapy Current Condition Current Condition Evaluation Date 11/30/17 Treatment Diagnosis s/p L TKA Onset Date 11/30/17 Precautions Lumbar Precautions Log Roll No Twisting Limit Bending Lifting Restriction of 10 lbs Gait Belt above Incisional Area Weight Bearing Status Weight Bearing Status Weight Bear as Tolerated M3 PT-IP Subjective Start: 11/30/17 16:57 Freq: NEEDED Status: Active Protocol: Document 12/01/17 09:30 MDD (Rec: 12/01/17 11:35 MDD [email or web address]) Subjective Physical Therapy Visit Type Type Treatment Note Visit Start Time 08:51 Visit Stop Time 09:30 Total Visit Minutes 39 Number of ELECTRIC STOP INSTALLER Visits 0 Physical Therapy Visit Comments Patient Comments Pt reports feeling relatively little pain today. Feels ready to go home when able. Therapy Pain Assessment Pain When Pain Assessed At Rest Pain Present Pain Present Pain Reported Location Back Intensity 2 Scale Used Numeric (1 - 10) Description Aching Pain Management Techniques Apply Cold Timing of Activity with Medications M4 PT-IP Mobility and Gait Start: 11/30/17 16:57 Freq: NEEDED Status: Active Protocol: Document 11/30/17 14:42 MDD (Rec: 11/30/17 17:06 MDD [email or web address]) PT-Bed Mobility Assessment Rolling Type of Rolling Roll to Left Level of Assist Independent Supine to Sit Supine to Sit Contact Guard Assistance Bedrails Scooting Scooting to Edge of Bed Contact Guard Assistance PT-Transfer Assessment Sit to and From Stand Sit to and from Stand Minimal Assistance Equipment Transfer Assistive Device Gait Belt Front Wheeled Walker Transfers Transfer Destination Toilet Transfer Technique Stand Step Pivot Transfer Ability Level of Assist Contact Guard Assistance Gait Assessment Gait Gait Assistance Required: Contact Guard Assist Distance (Feet) (feet) 35 Able to Maintain Weight Bearing Status Yes During Gait Assistive Devices Assistive Device Gait Belt Front Wheeled Walker Gait Deviations General Gait Pattern Antalgic Flexed Trunk Step-to Gait PT-Balance Assessment Sitting Balance and Reactions Static Sitting Balance Ability Normal Dynamic Sitting Balance Ability Normal Standing Balance and Reactions Static Standing Balance Ability Good Dynamic Standing Balance Ability Good M5 PT-IP Objective Assessments Start: 11/30/17 16:57 Freq: NEEDED Status: Active Protocol: Document 11/30/17 14:42 MDD (Rec: 11/30/17 17:06 MDD [email or web address]) Orientation Orientation/Cognition Level of Alertness Alert Orientation Name Age Birthday Month Date Year Day of Week Place Situation Language Function Ability No Deficits Noted Safety Awareness Understands Safety Issues Memory Description No Deficits Noted Gross Range of Motion Lower Extremity ROM Assessment Within Functional Limits Strength Lower Extremity Strength Assessment Within Functional Limits Sensation Assessment Sensation Gross Sensation Right LE Impaired Left LE Impaired Light Touch Impaired Sensation Description Paresthesia Numbness Comments Sensation Comments Pt w/ pre-existing peripheral neuropathy - impaired light touch sensation B LE's to mid mercado M6 PT-IP Treatment Start: 11/30/17 16:57 Freq: NEEDED Status: Active Protocol: Document 12/01/17 09:30 MDD (Rec: 12/01/17 11:35 MDD [email or web address]) Physical Therapy Treatment Exercises Exercises Ankle Pumps Gluteal Sets Quad Sets Heel Slides Straight Leg Raises Short Arc Quads Passive Knee Extension Hang Seated Knee Flexion/Extension Knee ROM Measurement -5 to 75 Education Education Provided Precautions Weight Bearing Status Post-Op Packet Safety Other Treatments Other Treatment Performed Pt demonstrates independence with bed mobility without using bedrails. Demonstrates understanding of and proper performance of HEP. SBA for sit to stand and gait to/from BR. Able to stand from low toilet using grab bars. Gait training x 100 feet with FWW with cues to improve to step- through pattern. M7 PT-IP Assessment and Plan Start: 11/30/17 16:57 Freq: NEEDED Status: Active Protocol: Document 12/01/17 09:30 MDD (Rec: 12/01/17 11:35 MDD [email or web address]) PT Summary Assessment and Plan Potential Rehabilitation Potential Excellent Status of Condition at Evaluation Stable Summary Impairments Pain ROM Progress Towards Goals Safe For Discharge Goals Met Assessment Summary Pt demonstrates ability to independently perform bed mobility, transfers and gait this day. Considered safe to d/c home when medically appropriate. Goals Bed Mobility Goal Independent Transfer Goal Independent Gait Goal Independent Front Wheel Walker Gait Distance 100 Days to Meet Goals 3 Frequency of Treatment Frequency Of Treatment Twice a Day Treatment Plan Physical Therapy Treatment Plan Bed Mobility Training Transfer Training Gait Training Therapeutic Exercise Post Op Education Recommendations To Nursing Amount of Assist Needed 1 Person Assist Discharge Recommendations PT Discharge Recommendations Home with Assistance Outpatient PT
--- NOTE | 2017-12-01 10:23 | PM.DS.1 ---
History of Present Illness Date Patient Seen: 12/01/17 Time Patient Seen: 10:27 Chief complaint: left total knee arthroplasty [id number] Narrative: Patient's pain is [id number]. Denies fever chills. No nausea vomiting. Patient was up with physical therapy yesterday. She has been up using the restroom with minimal assistance. is home to assist her. Patient does wish to go home today if she is safe to do so. Discharge Providers Date of admission: 11/30/17 08:06 Primary care physician: Anthony Gonzalez MD Consults: 11/30/17 14:25 Consult to Discharge Planning Routine Comment: Consult to Physical Therapy Evaluate & Treat Comment: Physician Instructions: postop TKA protocol Consult to Respiratory Therapy Evaluate & Treat Comment: Physician Instructions: Evaluate and treat Discharge provider: Daniel Coto PA-C Summary Discharge Diagnosis: Status post left total knee arthroplasty Hospital Course: Patient admitted to the hospital for left total knee arthroplasty. Patient failed outpatient conservative treatment. Patient consented to left total knee arthroplasty. Patient taken to the operating room underwent left total knee arthroplasty is back in her room recovering well and is in stable condition. She received general anesthesia as well as peripheral nerve block and local. Status at Discharge Functional status at discharge: uses cane/walker Overall status at discharge: patient is progressing back to baseline Time Spent with Patient Less than 30 minutes Exam Vital Signs (past 8 hours): - 12/01/17 05:21 12/01/17 08:00 Temperature 97.2 F L 97.0 F L Pulse Rate 60 56 L Respiratory Rate 18 18 Blood Pressure 116/61 112/54 L Pulse Oximetry 98 100 Oxygen Delivery Method Nasal Cannula Oxygen Flow Rate 1.5 Narrative Exam Narrative: 72-year-old female resting comfortably in bed in no apparent distress. Left knee dressing is clean, dry and intact. Motor functions intact to the distal left lower extremity. Sensation is grossly intact to light touch. Leg is warm and dry. Objective Labs Result Diagrams: 12/01/17 04:46 Labs: Laboratory Results - last 24 hr 12/01/17 04:46 Hgb 10.3 L Hct 30.8 L Discharge Plan Discharge Plan Patient Disposition: Home Discharge comment: DC home after PT Discharge Med Rec/Prescriptions Prescriptions: Continue metformin 500 mg Tablet 1,000 mg PO BID RF: 0 atorvastatin 20 mg Tablet 20 mg PO QAM RF: 0 metoprolol succinate 50 mg Tablet Extended Release 24 Hr 50 mg PO QAM RF: 0 clopidogrel 75 mg Tablet 75 mg PO DAILY RF: 0 aspirin 81 mg Tablet,Delayed Release (Dr/Ec) 81 mg PO QPM RF: 0 lisinopril 10 mg Tablet 10 mg PO QAM RF: 0 nitroglycerin 0.4 mg Tablet, Sublingual 0.4 mg SUBLINGUAL Q5-15M PRN (Reason: Chest Pain) RF: 0 sitagliptin [Januvia] 100 mg Tablet 100 mg PO QAM RF: 0 hydroxyzine pamoate 25 mg Capsule 25 mg PO Q4HR PRN (Reason: nausea, muscles spasms) Qty: 50 RF: 0 tramadol 50 mg tablet 50 mg PO Q6H PRN (Reason: pain) Qty: 60 RF: 0 acetaminophen 325 mg tablet 1,000 mg PO BID PRN (Reason: pain) RF: 0 hydrocodone-acetaminophen 5-325 mg Tablet 1 tab PO BEDTIME RF: 0 Follow up/Referrals: Pepito Dias MD [Physician] - (Follow up 5-7 days [phone]) Anthony Gonzalez MD [Primary Care Provider] - (please follow up with dr gonzalez @ [facility] [phone]) Provider Discharge Instructions Diet: Diet as Tolerated Activity: WBAT Cold/Heat Therapy: Ice as needed Other treatments: Take meds as directed per [facility] protocol Skin/Wound/Dressing Care Report to your healthcare provider any signs of infection, such as:: chills, fever, increased pain and unusual drainage Dressing: Keep clean and dry Other wound treatment: May shower Visit Report/Discharge Packet Instructions: DI for Knee Replacement Stand Alone Forms: Surgery Discharge Visit Report Forms: Stroke Signs & Symptoms Discharge Data Primary Care Provider: Anthony Gonzalez V Attending Provider: Pepito Dias Admit Date/Time: 11/30/17 08:06 Quality VTE Deep Vein Thrombosis/Pulmonary Embolism Present on Admission: No
--- NOTE | 2017-12-01 10:30 | P.DS_ITS ---
History of Present Illness Date Patient Seen: 12/01/17 Time Patient Seen: 10:27 Chief complaint: left total knee arthroplasty [id number] Narrative: Patient's pain is [id number]. Denies fever chills. No nausea vomiting. Patient was up with physical therapy yesterday. She has been up using the restroom with minimal assistance. is home to assist her. Patient does wish to go home today if she is safe to do so. Discharge Providers Date of admission: 11/30/17 08:06 Primary care physician: Anthony Gonzalez MD Consults: 11/30/17 14:25 Consult to Discharge Planning Routine Comment: Consult to Physical Therapy Evaluate & Treat Comment: Physician Instructions: postop TKA protocol Consult to Respiratory Therapy Evaluate & Treat Comment: Physician Instructions: Evaluate and treat Discharge provider: Daniel Coto PA-C Summary Discharge Diagnosis: Status post left total knee arthroplasty Hospital Course: Patient admitted to the hospital for left total knee arthroplasty. Patient failed outpatient conservative treatment. Patient consented to left total knee arthroplasty. Patient taken to the operating room underwent left total knee arthroplasty is back in her room recovering well and is in stable condition. She received general anesthesia as well as peripheral nerve block and local. Status at Discharge Functional status at discharge: uses cane/walker Overall status at discharge: patient is progressing back to baseline Time Spent with Patient Less than 30 minutes Exam Vital Signs (past 8 hours): - 12/01/17 05:21 12/01/17 08:00 Temperature 97.2 F L 97.0 F L Pulse Rate 60 56 L Respiratory Rate 18 18 Blood Pressure 116/61 112/54 L Pulse Oximetry 98 100 Oxygen Delivery Method Nasal Cannula Oxygen Flow Rate 1.5 Narrative Exam Narrative: 72-year-old female resting comfortably in bed in no apparent distress. Left knee dressing is clean, dry and intact. Motor functions intact to the distal left lower extremity. Sensation is grossly intact to light touch. Leg is warm and dry. Objective Labs Result Diagrams: 12/01/17 04:46 Labs: Laboratory Results - last 24 hr 12/01/17 04:46 Hgb 10.3 L Hct 30.8 L Discharge Plan Discharge Plan Patient Disposition: Home Discharge comment: DC home after PT Discharge Med Rec/Prescriptions Prescriptions: Continue metformin 500 mg Tablet 1,000 mg PO BID RF: 0 atorvastatin 20 mg Tablet 20 mg PO QAM RF: 0 metoprolol succinate 50 mg Tablet Extended Release 24 Hr 50 mg PO QAM RF: 0 clopidogrel 75 mg Tablet 75 mg PO DAILY RF: 0 aspirin 81 mg Tablet,Delayed Release (Dr/Ec) 81 mg PO QPM RF: 0 lisinopril 10 mg Tablet 10 mg PO QAM RF: 0 nitroglycerin 0.4 mg Tablet, Sublingual 0.4 mg SUBLINGUAL Q5-15M PRN (Reason: Chest Pain) RF: 0 sitagliptin [Januvia] 100 mg Tablet 100 mg PO QAM RF: 0 hydroxyzine pamoate 25 mg Capsule 25 mg PO Q4HR PRN (Reason: nausea, muscles spasms) Qty: 50 RF: 0 tramadol 50 mg tablet 50 mg PO Q6H PRN (Reason: pain) Qty: 60 RF: 0 acetaminophen 325 mg tablet 1,000 mg PO BID PRN (Reason: pain) RF: 0 hydrocodone-acetaminophen 5-325 mg Tablet 1 tab PO BEDTIME RF: 0 Follow up/Referrals: Pepito Dias MD [Physician] - (Follow up 5-7 days [phone]) Anthony Gonzalez MD [Primary Care Provider] - (please follow up with dr gonzalez @ [facility] [phone]) Provider Discharge Instructions Diet: Diet as Tolerated Activity: WBAT Cold/Heat Therapy: Ice as needed Other treatments: Take meds as directed per [facility] protocol Skin/Wound/Dressing Care Report to your healthcare provider any signs of infection, such as:: chills, fever, increased pain and unusual drainage Dressing: Keep clean and dry Other wound treatment: May shower Visit Report/Discharge Packet Instructions: DI for Knee Replacement Stand Alone Forms: Surgery Discharge Visit Report Forms: Stroke Signs & Symptoms Discharge Data Primary Care Provider: Anthony Gonzalez V Attending Provider: Pepito Dias Admit Date/Time: 11/30/17 08:06 Quality VTE Deep Vein Thrombosis/Pulmonary Embolism Present on Admission: No
--- NOTE | 2017-12-01 12:23 | PC.NURSE ---
Discharge instructions and home care handouts reviewed with patient and her , they state understanding and have no further questions or concerns at this time. IV dc'd intact. Aquacel replaced with new aquacel as integrity to left portion of dressing was compromised. Prescription for oxycodone given to patient to fill at pharmacy of choice. Patient states she has follow up with Dr. Dias's office scheduled for next week.
== END 2017-12-01 13:00 | disposition home or self-care (01) ==
LOC: AC 12-01 07:53 → OR 12-02 06:48
PROVIDERS: Family Provider Orthopaedic Surgery Orthopaedic Surgery of the Spine; PCP Internal Medicine; Visit Provider Orthopaedic Surgery
PROC: 0SRD0JZ Replacement of Left Knee Joint with Synthetic Substitute, Open Approach (ICD-10-PCS; CPT 27447; principal; 2017-11-30 10:15)
DX: M17.12 Unilateral primary osteoarthritis, left knee (principal); E11.9 Type 2 diabetes mellitus without complications; Z95.1 Presence of aortocoronary bypass graft; Z79.84 Long term (current) use of oral hypoglycemic drugs; Z79.01 Long term (current) use of anticoagulants; I10 Essential (primary) hypertension; E78.00 Pure hypercholesterolemia, unspecified
CPT/HCPCS: 27447; 36415; 64450; 73560; 82962; 85014; 85018; 94760; 97110; 97116; 97162; 97530; C1776; C9290; J2250; J3010

== ENCOUNTER → 2017-12-08 13:05 | Outpatient (CLI) | payer MEDICARE, OTHER, SELFPAY ==
[2017-11-30 15:26] VITALS: BMI 32.8
--- NOTE | 2017-12-08 | DI.US.S_ITS ---
PROCEDURE: US PERIPH VENOUS LOW EXTREM LT INDICATIONS: SWELLING AND DISCOLORED LEFT LEG TECHNIQUE: Real-time imaging, as well as color and pulse Doppler interrogation, were performed of the lower extremity deep veins from the inguinal ligament to the popliteal fossa. COMPARISON: [facility] Ultrasound, US, US ARTERIAL LOWER EXTREMITY WITH ILIAC DOPPLER BILATERAL, 03/07/2017, 13:19. FINDINGS: The deep veins are normally compressible, and free of intraluminal thrombus. Color and pulse Doppler demonstrate normal phasic intraluminal flow. There is normal augmentation response to distal compression maneuver. IMPRESSION: No deep venous thrombosis identified within the left lower extremity. Dictated by: sEequiel Jack [facility] Interpreted: Harpreet Cadena MD on 12/08/2017 at 14:51 Approved by: Harpreet Cadena M.D. on 12/08/2017 at 15:46
== END ==
PROVIDERS: Family Provider Orthopaedic Surgery Orthopaedic Surgery of the Spine; PCP Internal Medicine; Visit Provider Orthopaedic Surgery
DX: M79.89 Other specified soft tissue disorders (principal)
CPT/HCPCS: 93971

== ENCOUNTER 2018-01-06 08:02 | Day surgery (SDC) | payer MEDICARE, OTHER, SELFPAY ==
[2017-11-30 15:26] VITALS: BMI 32.8
[2018-01-06 08:55] VITALS: BP 151/80; PULSE 72; RESP 16; TEMP 36.3; O2SAT 96; BMI 31.9
[2018-01-06] MEDS: LACTATED RINGERS 1,000 ML 42 ML IV (09:00)
--- NOTE | 2018-01-06 09:16 | PM.PREOP ---
Pre-operative Note Interval Note Pre-op Check: Yes History & Physical Reviewed by Physician and Yes Exam Performed Changes: No
--- NOTE | 2018-01-06 09:20 | PM.OP.1 ---
Operative Date/Time/Diagnoses Date of procedure: 01/06/18 Time of procedure: 09:53 Pre-op diagnosis: Stiff left knee after total knee replacement Post-op diagnosis: same Procedure & Clinicians Procedure: Manipulation under anesthesia left knee Same procedure as scheduled: Yes Indications: The patient presents today for med relation of her left total knee after failure to regain sufficient range of motion over the 1st 5 weeks. The nature of the procedure including the risks and benefits, alternatives, postoperative course and expected outcome were discussed and all questions answered. Consent was obtained. Operative site confirmed and marked. Surgeon: Pepito Dias Click Yes if Unassisted: Yes Anesthesia Type: General and Local Operative Notes Findings: Pre manipulation range of motion: 7-70 degrees. Post manipulation range of motion: 0-130 degrees. The knee hung to 110? with gravity alone. Closure Type: not applicable Specimen(s): none sent Blood products transfused: none Procedure in detail: The patient was taken the operative suite placed under general anesthesia. The lateral aspect of the knee was then prepped and the joint injected with a combination of 10 cc of 1% lidocaine and 0.5% Marcaine and 8 mg of dexamethasone. The knee was then manipulated in both flexion and extension. Lysis of adhesions was felt during flexion. Pre and post reduction range of motion is noted above. The patient tolerated procedure well and was returned to recovery room in good conditions. Complications: none Condition: stable Disposition: same day surgery Plan for aftercare: Patient will begin 5 times per week physical therapy over the next 2 weeks. Clinic follow-up in 2 weeks.
[2018-01-06] MEDS: LIDOCAINE 1% W/EPI INJ 20 ML INJ (09:56)
[2018-01-06] MEDS: BUPIVACAINE 0.5% (PF) VIAL 10 ML INJ (09:56)
[2018-01-06] MEDS: DEXAMETHASONE 10 MG/ML VIAL IV (09:57)
[2018-01-06 09:59] VITALS: BP 121/59; PULSE 83; RESP 17; TEMP 36.4; O2SAT 98
[2018-01-06 10:05] VITALS: BP 111/55; PULSE 78; RESP 11; O2SAT 97
[2018-01-06 10:10] VITALS: BP 133/61; PULSE 75; RESP 12; O2SAT 96
[2018-01-06 10:22] VITALS: BP 113/68; PULSE 80; RESP 15; TEMP 36.5; O2SAT 98
[2018-01-06 10:43] VITALS: BP 115/67; PULSE 73; RESP 14; TEMP 36.3; O2SAT 98
== END 2018-01-06 10:41 | disposition home or self-care (01) ==
PROVIDERS: PCP Internal Medicine; Visit Provider Orthopaedic Surgery
PROC: (CPT 27570; principal; 2018-01-06 09:45)
DX: T84.82XA Fibrosis due to internal orthopedic prosthetic devices, implants and grafts, initial encounter (principal); Z96.652 Presence of left artificial knee joint; I10 Essential (primary) hypertension; E11.9 Type 2 diabetes mellitus without complications; Z79.84 Long term (current) use of oral hypoglycemic drugs; E78.00 Pure hypercholesterolemia, unspecified
CPT/HCPCS: 27570; J1100; J2405; J2704; J3010

== ENCOUNTER → 2018-10-02 12:46 | Outpatient (CLI) | payer MEDICARE, OTHER, SELFPAY ==
[2017-11-30 15:26] VITALS: BMI 32.8
--- NOTE | 2018-10-02 | DI.MG.S_ITS ---
BILATERAL DIGITAL SCREENING MAMMOGRAM 3D/2D WITH CAD: 10/02/2018 CLINICAL: Routine screening. Comparison is made to exams dated: 09/22/2017 mammogram, 09/15/2016 mammogram, and 09/15/2015 mammogram - [facility]. There are scattered fibroglandular elements in both breasts. Current study was also evaluated with a Computer Aided Detection (CAD) system. No significant masses, calcifications, or other findings are seen in either breast. There has been no significant interval change. IMPRESSION: NEGATIVE There is no mammographic evidence of malignancy. A 1 year screening mammogram is recommended. This exam was interpreted at Station ID: [id number]. NOTE: For mammograms, a report in lay terms will be sent to the patient. Approximately 15% of breast malignancies will not be visualized mammographically. In the management of a palpable breast mass, a negative mammogram must not discourage biopsy of a clinically suspicious lesion. Electronically Signed By: Vika galeana/janes:10/02/2018 14:58:06 letter sent: Normal Exam ACR BI-RADS Category 1: Negative 3341F
== END ==
PROVIDERS: PCP Internal Medicine; Referring Provider Orthopaedic Surgery Orthopaedic Surgery of the Spine; Visit Provider Internal Medicine
DX: Z12.31 Encounter for screening mammogram for malignant neoplasm of breast (principal)
CPT/HCPCS: 77063; 77067

== ENCOUNTER → 2019-10-11 09:59 | Outpatient (CLI) | payer MEDICARE, OTHER, SELFPAY ==
[2017-11-30 15:26] VITALS: BMI 32.8
--- NOTE | 2019-10-11 | DI.MG.S_ITS ---
BILATERAL DIGITAL SCREENING MAMMOGRAM 3D/2D WITH CAD: 10/11/2019 CLINICAL: Routine screening. Comparison is made to exams dated: 10/02/2018 mammogram, 09/22/2017 mammogram, 09/15/2016 mammogram, 09/15/2015 mammogram, and 09/03/2014 mammogram - [facility]. There are scattered fibroglandular elements in both breasts. Current study was also evaluated with a Computer Aided Detection (CAD) system. No significant masses, calcifications, or other findings are seen in either breast. There has been no significant interval change. IMPRESSION: NEGATIVE There is no mammographic evidence of malignancy. A 1 year screening mammogram is recommended. This exam was interpreted at Station ID: [id number]. NOTE: For mammograms, a report in lay terms will be sent to the patient. Approximately 15% of breast malignancies will not be visualized mammographically. In the management of a palpable breast mass, a negative mammogram must not discourage biopsy of a clinically suspicious lesion. Electronically Signed By: Andi castellanos/janes:10/11/2019 18:27:47 letter sent: Normal Exam ACR BI-RADS Category 1: Negative 3341F
== END ==
PROVIDERS: PCP Internal Medicine; Referring Provider Internal Medicine; Visit Provider Internal Medicine
DX: Z12.31 Encounter for screening mammogram for malignant neoplasm of breast (principal)
CPT/HCPCS: 77063; 77067

== ENCOUNTER → 2020-03-14 19:20 | Outpatient (ROUT) | payer MEDICARE, OTHER, SELFPAY ==
[2017-11-30 15:26] VITALS: BMI 32.8
[2020-03-14 19:41] LABS: Aspartate Aminotransferase 26 IU/L (14-36); BUN Creatinine Ratio 32.4 (6-22); Blood Urea Nitrogen 35 mg/dL (7-17); Calcium 10.4 mg/dL (8.4-10.2); Carbon Dioxide 28 mmol/L (22-32); Chloride 105 mmol/L (98-107); Cholesterol 227 mg/dL (140-199); Estimated Glomerular Filt Rate 49.5 mL/min (>60); Glucose 98 mg/dL (80-110); HDL Cholesterol 54 mg/dL (40-60); HEMOLYSIS 17 (0-50); Potassium 4.7 mmol/L (3.4-5.1); Sodium 140 mmol/L (137-145); Triglycerides 430 mg/dL (35-150)
== END ==
PROVIDERS: PCP Internal Medicine; Visit Provider Internal Medicine
DX: N18.30 Chronic kidney disease, stage 3 unspecified (principal); E78.2 Mixed hyperlipidemia
CPT/HCPCS: 80048; 80061; 84450

== ENCOUNTER → 2020-05-27 14:01 | Outpatient (CLI) | payer MEDICARE, OTHER, SELFPAY ==
[2017-11-30 15:26] VITALS: BMI 32.8
== END ==
PROVIDERS: PCP Internal Medicine; Visit Provider Specialist
DX: N30.01 Acute cystitis with hematuria (principal); N39.9 Disorder of urinary system, unspecified; N95.2 Postmenopausal atrophic vaginitis; Z87.440 Personal history of urinary (tract) infections
CPT/HCPCS: 81002; 87077; 87086; 87186; 99214

== ENCOUNTER → 2020-08-06 14:51 | Outpatient (CLI) | payer MEDICARE, OTHER, SELFPAY ==
[2020-05-27 14:56] VITALS: BMI 32.8
== END ==
PROVIDERS: PCP Internal Medicine; Referring Provider Specialist; Visit Provider Specialist
DX: R39.9 Unspecified symptoms and signs involving the genitourinary system (principal); Z87.440 Personal history of urinary (tract) infections
CPT/HCPCS: 87077; 87086

== ENCOUNTER → 2020-08-27 12:26 | Outpatient (CLI) | payer MEDICARE, OTHER, SELFPAY ==
[2020-05-27 14:56] VITALS: BMI 32.8
== END ==
PROVIDERS: PCP Internal Medicine; Referring Provider Specialist; Visit Provider Specialist
DX: R30.0 Dysuria (principal); N95.2 Postmenopausal atrophic vaginitis; N30.01 Acute cystitis with hematuria; R39.9 Unspecified symptoms and signs involving the genitourinary system; Z87.440 Personal history of urinary (tract) infections
CPT/HCPCS: 51798; 81002; 87077; 87086; 87186; 99215

== ENCOUNTER → 2020-09-12 18:39 | Outpatient (ROUT) | payer MEDICARE, SELFPAY ==
[2020-05-27 14:56] VITALS: BMI 32.8
== END ==
PROVIDERS: PCP Internal Medicine; Visit Provider Internal Medicine
DX: R32 Unspecified urinary incontinence (principal)
CPT/HCPCS: 87077; 87086; 87186

== ENCOUNTER → 2020-12-30 11:01 | Outpatient (CLI) | payer MEDICARE, SELFPAY ==
[2020-05-27 14:56] VITALS: BMI 32.8
--- NOTE | 2020-12-30 | DI.MG.S_ITS ---
BILATERAL DIGITAL SCREENING MAMMOGRAM 3D/2D WITH CAD: 12/30/2020 CLINICAL: Routine screening. Comparison is made to exams dated: 10/11/2019 mammogram, 10/02/2018 mammogram, 09/22/2017 mammogram, and 09/15/2016 mammogram - [facility]. There are scattered fibroglandular elements in both breasts. Current study was also evaluated with a Computer Aided Detection (CAD) system. No significant masses, calcifications, or other findings are seen in either breast. There has been no significant interval change. IMPRESSION: NEGATIVE There is no mammographic evidence of malignancy. A 1 year screening mammogram is recommended. This exam was interpreted at Station ID: [id number]. NOTE: For mammograms, a report in lay terms will be sent to the patient. Approximately 15% of breast malignancies will not be visualized mammographically. In the management of a palpable breast mass, a negative mammogram must not discourage biopsy of a clinically suspicious lesion. Electronically Signed By: Master Davis M.D., jr/janes:12/30/2020 11:22:09 letter sent: Normal Exam ACR BI-RADS Category 1: Negative 3341F
== END ==
PROVIDERS: PCP Internal Medicine; Referring Provider Internal Medicine; Visit Provider Internal Medicine
DX: Z12.31 Encounter for screening mammogram for malignant neoplasm of breast (principal)
CPT/HCPCS: 77063; 77067

== ENCOUNTER → 2021-03-18 14:30 | Outpatient (CLI) | payer MEDICARE, OTHER, SELFPAY ==
[2020-05-27 14:56] VITALS: BMI 32.8
[2021-03-18 16:16] LABS: Appearance Urine UA CLOUDY; Bilirubin Urine UA NEGATIVE (NEGATIVE); Color Urine UA YELLOW; Glucose Urine UA NEGATIVE (Negative); Ketones Urine UA NEGATIVE (NEGATIVE); Leukocyte Esterase Urine UA 3+ (NEGATIVE); Nitrite Urine UA POSITIVE (Negative); Occult Blood Urine UA 2+ (Negative); Protein Urine UA 2+ (Negative); Urobilinogen Urine UA 0.2 E.U./dL (0.2)
[2021-03-18 16:23] LABS: Amorphous Sediment Urine 1+; Bacteria Urine Many (>30); Mucus Urine 1+ (Negative); RBC Urine 1-5/HPF (0-5/HPF); Squamous Epithelial Cell Urine 0-1 /HPF (0-5/HPF); WBC Urine >100/HPF (0-5/HPF)
== END ==
PROVIDERS: PCP Internal Medicine; Referring Provider Obstetrics & Gynecology; Visit Provider Obstetrics & Gynecology
DX: R32 Unspecified urinary incontinence (principal); R35.0 Frequency of micturition; R39.9 Unspecified symptoms and signs involving the genitourinary system; Z87.440 Personal history of urinary (tract) infections
CPT/HCPCS: 81001; 87077; 87086; 87186

== ENCOUNTER → 2021-04-22 14:15 | Outpatient (CLI) | payer MEDICARE, OTHER, SELFPAY ==
[2020-05-27 14:56] VITALS: BMI 32.8
== END ==
PROVIDERS: PCP Internal Medicine; Referring Provider Obstetrics & Gynecology; Visit Provider Obstetrics & Gynecology
DX: N39.0 Urinary tract infection, site not specified (principal); R10.2 Pelvic and perineal pain; R39.9 Unspecified symptoms and signs involving the genitourinary system; Z87.440 Personal history of urinary (tract) infections
CPT/HCPCS: 87077; 87086; 87186

== ENCOUNTER 2021-11-01 04:19 | Emergency (ER) | payer MEDICARE, OTHER, SELFPAY ==
[2020-05-27 14:56] VITALS: BMI 32.8
--- NOTE | 2021-11-01 04:20 | ED_ITS ---
HPI - Altered Mental Status General Chief Complaint: Altered Mental Status Stated Complaint: Altered Mental Status Time Seen by Provider: 11/01/21 04:20 History of Present Illness HPI narrative: 76-year-old female nonsmoker with extensive medical history including hypertension, hyperlipidemia, type 2 diabetes, kidney disease, coronary artery disease presents by EMS for evaluation of altered mental status just prior to arrival. She was just discharged from [facility] yesterday after being admitted overnight for a transvaginal hysterectomy with cystocele repair. She was doing fine unwell and started having some increasing lower abdominal discomfort over the course of the night. Her gave her a Percocet and she seemed to do a bit better but in the aftermath woke up and was confused and agitated and did not know where she was and was asking nonsensical questions at which point he called to have her brought here. By the time she had arrived she was no longer having pain and is alert and oriented. She has no fever chills. She denies any headache or blurred vision. She has no runny nose, sore throat or cough. She has no chest pain or shortness of breath. She has no nausea, vomiting or diarrhea. She denies any abdominal pain dysuria, frequency or urge ncy but does state that there was some blood in her urine. Related Data Home Medications Medication Instructions Recorded Confirmed aspirin 81 mg tablet,delayed 162 mg PO QPM 09/20/17 02/25/21 release atorvastatin 20 mg tablet 20 mg PO QAM 09/20/17 02/25/21 metformin 500 mg tablet 1,000 mg PO BID 09/20/17 02/25/21 metoprolol succinate 50 mg 50 mg PO QAM 09/20/17 02/25/21 tablet,extended release 24 hr nitroglycerin 0.4 mg sublingual 0.4 mg sublingual Q5-15M PRN Chest 09/20/17 08/27/20 tablet Pain acetaminophen 325 mg tablet 1,000 mg PO BID PRN pain 11/17/17 02/25/21 cilostazol 50 mg tablet 50 mg PO BID 05/23/20 02/25/21 fesoterodine 4 mg tablet,extended 4 mg PO DAILY 02/25/21 02/25/21 release 24 hr (Toviaz) glipizide 5 mg tablet, extended 5 mg PO DAILY 02/25/21 02/25/21 release 24 hr nitrofurantoin macrocrystal 50 mg 50 mg PO BEDTIME 02/25/21 02/25/21 capsule gabapentin 300 mg capsule 1,200 mg PO BEDTIME 04/28/21 Previous Rx's Medication Instructions Recorded ciprofloxacin HCl 500 mg tablet 500 mg PO BID 7 days #14 tabs 04/24/21 sulfamethoxazole 800 1 tab PO BID 5 days #10 tabs 11/01/21 mg-trimethoprim 160 mg tablet (Bactrim DS) Allergies Allergy/AdvReac Type Severity Reaction Status Date / Time nut - unspecified Allergy Severe Anaphylaxis Verified 02/25/21 15:15 feathers Allergy Mild Verified 02/25/21 15:15 ketorolac [KETOROLAC] Allergy Mild itching Verified 02/25/21 15:15 coconut Allergy Unknown Allergy Verified 02/25/21 15:15 testing - unknown reaction Penicillins Allergy Unknown Had Verified 02/25/21 15:15 allergy testing, told not to take, unknown reation Review of Systems Review of Systems Narrative: GENERAL: Denies chills, fatigue, malaise, fever, sweats. HEENT: Denies sinus pain, ear pain, sore throat, difficulty swallowing, dizziness. RESPIRATORY: Denies dyspnea, cough, wheezing, hemoptysis, sputum. CARDIOVASCULAR: Denies chest pain, palpitations, orthopnea, edema, GASTROINTESTINAL: See HPI : Denies dysuria, frequency, incontinence, hematuria, urinary retention. MUSCULOSKELETAL: denies weakness, joint pain, or bony pain SKIN: Denies rash, skin lesions, or other NEUROLOGIC: See HPI PSYCHIATRIC: No concerning psychosocial issues. 12 point review of systems is negative except for those stated above Patient History Medical History Allergies (~195) Amputated toe of left foot CAD (coronary artery disease) Cardiomyopathy Carotid arterial disease Carpal tunnel syndrome (~1999) Cerebral vascular disease Chicken pox (~1954) Chronic renal insufficiency CVA (cerebral vascular accident) DDD (degenerative disc disease) Diabetes Foot ulcer due to secondary DM History of UTI HTN (hypertension) Hyperlipidemia Incontinence in female Lower urinary tract symptoms (LUTS) Lumbar stenosis Mumps (~1955) Peripheral neuropathy Postmenopausal atrophic vaginitis UTI (urinary tract infection) Surgical History Anesthesia History of knee surgery History of lumbar fusion Hx of heart artery stent Hx of tonsillectomy S/P foot surgery, left S/P foot surgery, right Status post cataract extraction of both eyes with insertion of intraocular lens Family History Mother Cancer Father Gangrene Social History household members: spouse Smoking Status: Never smoker alcohol intake: current Exam Narrative Exam Narrative: GENERAL: [76] year old patient appears stated age. Well-developed patient, in mild distress. Resting comfortably, GCS 15 HEAD: Atraumatic. Normocephalic. EYES: Pupils equal round and reactive. Extraocular motions intact. No scleral icterus. No injection or drainage. ENT: Nose without bleeding, purulent drainage. Throat without erythema, tons illar hypertrophy or exudate. Airway patent. NECK: Trachea midline. Non tender CARDIOVASCULAR: Regular rate and rhythm without murmurs, gallops, or rubs. RESPIRATORY: Clear to auscultation. Breath sounds equal bilaterally. No wheezes, rales, or rhonchi. GASTROINTESTINAL: Abdomen soft, non-tender, nondistended. EXTREMITIES: No edema or joint tenderness. BACK: Nontender without deformity or crepitance. No flank tenderness. NEURO: AOx3. SKIN: No rash or erythema of visible areas Initial Vital Signs Initial Vital Signs: Vital Signs Temperature 98.2 F 11/01/21 04:39 Pulse Rate 66 11/01/21 04:39 Respiratory Rate 17 11/01/21 04:39 Blood Pressure 156/84 H 11/01/21 04:39 Pulse Oximetry 95 11/01/21 04:39 Oxygen Delivery Method 11/01/21 04:39 Course Orders Ordered: Discontinued Medications Trimethoprim/Sulfamethoxazole (Trimeth/Sulfa 160/800 (Ds) Tablet) 1 tab PO NOW ONE Stop: 11/01/21 06:29 Last Admin: 11/01/21 06:40 Dose: 1 tab Documented By: MARI Vital Signs Vital signs: Vital Signs - 8 hr 11/01/21 04:39 Temperature 98.2 F Pulse Rate 66 Respiratory Rate 17 Blood Pressure 156/84 H Pulse Oximetry 95 Oxygen Delivery Method Room Air MDM - Altered Mental Status Lab Data Result diagrams: 11/01/21 04:54 11/01/21 04:54 Labs: Lab Results 11/01/21 11/01/21 11/01/21 Range/Units 04:54 04:54 05:56 WBC 10.0 (4.5-11.0) X10^3/uL RBC 3.69 L (4.0-5.2) X10^6/uL Hgb 9.9 L (12.0-16.0) g/dL Hct 31.0 L (36-46) % MCV 83.9 (80-100) fL MCH 26.8 (26-34) PG MCHC 32.0 (30-36) % RDW 15.7 H (11.6-14.8) % Plt Count 281 (150-400) X10^3/uL Neut % (Auto) 65.6 (50-75) % Lymph % (Auto) 19.7 L (25-40) % [place] % (Auto) 10.6 (3-14) % Eos % (Auto) 3.2 (2-4) % Baso % (Auto) 0.9 (0-2) % Neut # (Auto) 6600 (7235-2496) /uL Lymph # (Auto) 2000 (4493-3314) /uL Mcpherson # (Auto) 1100 H (0-900) /uL Eos # (Auto) 300 (0-450) /uL Baso # (Auto) 100 (0-100) /uL Sodium 138 (137-145) mmol/L Potassium 3.7 (3.4-5.1) mmol/L Chloride 106 (98-107) mmol/L Carbon Dioxide 25 (22-32) mmol/L BUN 14 (7-17) mg/dL Creatinine 1.00 (0.52-1.04) mg/dL Estimated GFR 58 L (>60) mL/min BUN/Creatinine Ratio 14.0 (6-22) Glucose 220 H (80-110) mg/dL Calcium 8.6 (8.4-10.2) mg/dL Magnesium 1.4 L (1.6-2.3) mg/dL Total Bilirubin 0.7 (0.2-1.3) mg/dL AST 28 (14-36) IU/L ALT 11 (<35) IU/L Alkaline Phosphatase 107 (38-126) U/L Total Protein 6.7 (6.3-8.2) g/dL Albumin 3.6 (3.5-5.0) g/dL Globulin 3.1 (1.7-4.1) g/dL Albumin/Globulin Ratio 1.2 (1.0-2.8) Urine Color Yellow Urine Appearance Clear Urine pH 6.5 (4.5-8.0) Ur Specific [place] <=1.005 (1.000-1.035) Urine Protein Negative (Negative) Urine Glucose (UA) 1+ H (Negative) g/dL Urine Ketones Trace H (NEGATIVE) Urine Occult Blood 2+ H (Negative) Urine Nitrate Negative (Negative) Urine Bilirubin Negative (NEGATIVE) Urine Urobilinogen 0.2 (0.2) E.U./dL Ur Leukocyte Esterase Trace H (NEGATIVE) Urine RBC 1-5/hpf (0-5/HPF) Urine WBC 30-100/hpf H (0-5/HPF) Ur Squamous Epith Cells 1-5 /hpf (0-5/HPF) Ur Transition Epith Cell 0-1/hpf (0-5/HPF) Ur Renal Epithelial Cell 0-1/hpf (0-1/HPF) Amorphous Sediment 1+ Urine Bacteria Occasional (0-1) (None) Ur Culture Indicated? Specimen cultured MDM Narrative Medical decision making narrative: Very pleasant 76-year-old female with reassuring history and physical exam. She had episodes of confusion, largely with temporal relationship to administration of oxycodone. It seems reasonable to consider a relative intolerance to this medication and sounds like she had taken it on an empty stomach, furthermore she has evidence of a urinary tract infection. She had been taking ciprofloxacin since her discharge and for this reason has been switched over to Bactrim. She has been asymptomatic for the duration of her visit and this was confirmed both by patient and her . Extensive return precautions discussed and questions have been answered to her apparent satisfaction Discharge Plan Departure Patient Disposition: Home Clinical Impression: Acute UTI, Acute confusion Instructions: DI for Urinary Tract Infection (UTI) Activity Restrictions/Additional Instructions: *You have been diagnosed with [episode of confusion, UTI, possible medication ] *What to do: *Please continue to take your regular medications as directed. [x ] New medication prescriptions sent to your pharmacy: [ [facility] in [facility]] [ ] New medication written as a paper prescription [ ] No new medications given *Please follow up with your primary care provider in 2-3 days, call for an appointment. Let them know you were seen in the Emergency Department and that we ask that you be seen in follow up. We will electronically transmit a record of today's note if your PCP is in our system *If you do not have a primary care provider please contact the [facility] Resource line at [phone]. They will ask some questions about your medical history and help get you set up with a doctor in the community. *Return to Emergency Department if you should have any new, worsening or concerning symptoms, such as [fever greater than 101 F, shaking chills, worsening pain, persistent vomiting or other bothersome symptoms] Prescriptions: New sulfamethoxazole-trimethoprim [Bactrim DS] 800-160 mg tablet 1 tab PO BID 5 Days Qty: 10 0RF No Action cilostazol 50 mg tablet 50 mg PO BID ciprofloxacin HCl 500 mg tablet 500 mg PO BID 7 Days Qty: 14 6RF gabapentin 300 mg capsule 1,200 mg PO BEDTIME nitrofurantoin macrocrystal 50 mg capsule 50 mg PO BEDTIME Rx Instructions: must administer with a meal/food Toviaz 4 mg tablet extended release 24 hr 4 mg PO DAILY glipizide 5 mg tablet extended release 24hr 5 mg PO DAILY metformin 500 mg Tablet 1,000 mg PO BID atorvastatin 20 mg Tablet 20 mg PO QAM metoprolol succinate 50 mg Tablet Extended Release 24 Hr 50 mg PO QAM aspirin 81 mg Tablet,Delayed Release (Dr/Ec) 162 mg PO QPM nitroglycerin 0.4 mg Tablet, Sublingual 0.4 mg SUBLINGUAL Q5-15M PRN (Reason: Chest Pain) Label Comments: pt has never taken acetaminophen 325 mg tablet 1,000 mg PO BID PRN (Reason: pain) Visit Report Forms: Patient Portal/API
[2021-11-01 04:39] VITALS: BP 156/84; PULSE 66; RESP 17; TEMP 36.8; O2SAT 95; BMI 37.8
[2021-11-01 05:11] LABS: Add Manual Diff / Slide Review NO; Basophils Absolute Auto 100 /uL (0-100); Basophils Percent Auto 0.9 % (0-2); Eosinophils Absolute Auto 300 /uL (0-450); Eosinophils Percent Auto 3.2 % (2-4); Hemoglobin 9.9 g/dL (12.0-16.0); Lymphocytes Absolute Auto 2000 /uL (1100-4500); Lymphocytes Percent Auto 19.7 % (25-40); Mean Corpuscular Hemoglobin 26.8 PG (26-34); Mean Corpuscular Volume 83.9 fL (80-100); Monocytes Absolute Auto 1100 /uL (0-900); Monocytes Percent Auto 10.6 % (3-14); Neutrophils Absolute Auto 6600 /uL (1500-7000); Neutrophils Percent Auto 65.6 % (50-75); Platelet Count 281 X10^3/uL (150-400); Red Blood Cell Count 3.69 X10^6/uL (4.0-5.2); Red Cell Distribution Width 15.7 % (11.6-14.8)
[2021-11-01 05:26] LABS: Alanine Aminotransferase 11 IU/L (<35); Albumin 3.6 g/dL (3.5-5.0); Albumin Globulin Ratio 1.2 (1.0-2.8); Alkaline Phosphatase 107 U/L (38-126); Aspartate Aminotransferase 28 IU/L (14-36); Bilirubin Total 0.7 mg/dL (0.2-1.3); Blood Urea Nitrogen 14 mg/dL (7-17); Calcium 8.6 mg/dL (8.4-10.2); Carbon Dioxide 25 mmol/L (22-32); Chloride 106 mmol/L (98-107); Estimated Glomerular Filt Rate 58 mL/min (>60); Globulin 3.1 g/dL (1.7-4.1); Glucose 220 mg/dL (80-110); HEMOLYSIS < 15 (0-50); Magnesium 1.4 mg/dL (1.6-2.3); Potassium 3.7 mmol/L (3.4-5.1); Sodium 138 mmol/L (137-145); Total Protein 6.7 g/dL (6.3-8.2)
[2021-11-01 06:12] LABS: Appearance Urine UA CLEAR; Bilirubin Urine UA NEGATIVE (NEGATIVE); Color Urine UA YELLOW; Glucose Urine UA 1+ g/dL (Negative); Ketones Urine UA TRACE (NEGATIVE); Leukocyte Esterase Urine UA TRACE (NEGATIVE); Nitrite Urine UA NEGATIVE (Negative); Occult Blood Urine UA 2+ (Negative); Protein Urine UA NEGATIVE (Negative); Specific Gravity Urine UA <=1.005 (1.000-1.035); Urobilinogen Urine UA 0.2 E.U./dL (0.2)
[2021-11-01 06:13] LABS: RBC Urine 1-5/HPF (0-5/HPF); pH Urine UA 6.5 (4.5-8.0)
[2021-11-01 06:14] LABS: WBC Urine 30-100/HPF (0-5/HPF)
[2021-11-01 06:15] LABS: Amorphous Sediment Urine 1+; Bacteria Urine Occasional (0-1); Culture Indicated Urine Specimen Cultured; Renal Epithelial Cells Urine 0-1/HPF (0-1/HPF); Squamous Epithelial Cell Urine 1-5 /HPF (0-5/HPF); Transitional Epi Cells Urine 0-1/HPF (0-5/HPF)
[2021-11-01] MEDS: TRIMETH/SULFA 160/800 (DS) TABLET 1 TAB PO (06:40)
[2021-11-01 06:42] VITALS: BP 184/73; PULSE 74; RESP 18; O2SAT 96
== END 2021-11-01 06:46 | disposition home or self-care (01) ==
PROVIDERS: Emergency Provider Emergency Medicine
DX: N39.0 Urinary tract infection, site not specified (principal); R41.0 Disorientation, unspecified; R07.9 Chest pain, unspecified
CPT/HCPCS: 36415; 80053; 81001; 83735; 85025; 87086; 93005; 99283; 99284

== ENCOUNTER → 2022-06-09 11:28 | Outpatient (CLI) | payer MEDICARE, OTHER, SELFPAY ==
[2020-05-27 14:56] VITALS: BMI 32.8
--- NOTE | 2022-06-09 | DI.MG.S_ITS ---
BILATERAL DIGITAL SCREENING MAMMOGRAM 3D/2D WITH CAD: 06/09/2022 CLINICAL: Routine screening. Comparison is made to exams dated: 12/30/2020 mammogram, 10/11/2019 mammogram, and 10/02/2018 mammogram - [facility]. There are scattered areas of fibroglandular density in both breasts (category b / 25%-50% glandular tissue). Current study was also evaluated with a Computer Aided Detection (CAD) system. No significant masses, calcifications, or other findings are seen in either breast. There has been no significant interval change. IMPRESSION: NEGATIVE There is no mammographic evidence of malignancy. A 1 year screening mammogram is recommended. Based on the Tyrer Cuzick model (a risk assessment model) the patient's lifetime risk is 2.7% and her 10 year risk is 0.0%. According to the ACR, ACS, and NCCN guidelines, an annual breast MRI exam along with mammogram is recommended if the patient's lifetime risk is 20% or greater. This exam was interpreted at Station ID: [id number]. NOTE: For mammograms, a report in lay terms will be sent to the patient. Approximately 15% of breast malignancies will not be visualized mammographically. In the management of a palpable breast mass, a negative mammogram must not discourage biopsy of a clinically suspicious lesion. Electronically Signed By: Master Davis M.D., jr/janes:06/10/2022 13:21:24 letter sent: Normal Exam ACR BI-RADS Category 1: Negative 3341F
== END ==
PROVIDERS: PCP Internal Medicine; Referring Provider Internal Medicine; Visit Provider Internal Medicine
DX: Z12.31 Encounter for screening mammogram for malignant neoplasm of breast (principal)
CPT/HCPCS: 77063; 77067

== ENCOUNTER → 2022-06-11 12:36 | Outpatient (CLI) | payer MEDICARE, OTHER, SELFPAY ==
[2020-05-27 14:56] VITALS: BMI 32.8
[2022-06-11 13:29] LABS: Hematocrit 33.7 % (36-46); Hemoglobin 10.9 g/dL (12.0-16.0); Mean Corpuscular HGB Conc 32.5 % (30-36); Mean Corpuscular Hemoglobin 26.9 PG (26-34); Mean Corpuscular Volume 82.8 fL (80-100); Platelet Count 336 X10^3/uL (150-400); Red Blood Cell Count 4.07 X10^6/uL (4.0-5.2); Red Cell Distribution Width 18.6 % (11.6-14.8); White Blood Cell Count 10.3 X10^3/uL (4.5-11.0)
[2022-06-11 14:11] LABS: Alanine Aminotransferase 16 IU/L (<35); Albumin 4.3 g/dL (3.5-5.0); Albumin Globulin Ratio 1.3 (1.0-2.8); Alkaline Phosphatase 119 U/L (38-126); Aspartate Aminotransferase 20 IU/L (14-36); BUN Creatinine Ratio 23.1 (6-22); Bilirubin Total 0.4 mg/dL (0.2-1.3); Blood Urea Nitrogen 21 mg/dL (7-17); Calcium 9.7 mg/dL (8.4-10.2); Carbon Dioxide 27 mmol/L (22-32); Chloride 103 mmol/L (98-107); Cholesterol 175 mg/dL (140-199); Estimated Glomerular Filt Rate > 60 mL/min (>60); Globulin 3.3 g/dL (1.7-4.1); Glucose 164 mg/dL (80-110); HDL Cholesterol 56 mg/dL (40-60); HEMOLYSIS < 15 (0-50); LDL Cholesterol Calculated 62 mg/dL (<100); Potassium 4.4 mmol/L (3.4-5.1); Sodium 139 mmol/L (137-145); Total Protein 7.6 g/dL (6.3-8.2); Triglycerides 286 mg/dL (35-150)
[2022-06-11 14:12] LABS: Hemoglobin A1C% w Est Avg Glu 9.5 % (4.0-6.0)
[2022-06-11 14:40] LABS: TSH w/ Reflex to FT4 1.22 uIU/mL (0.47-4.68)
[2022-06-11 16:01] LABS: Creatinine Urine Random 87.3 mg/dL
[2022-06-11 16:32] LABS: Microalbumi Creatinin Ratio Ur 648.3 ug/mg CR (<30); Microalbumin Urine Random 56.6 mg/dL (0-1.6)
[2022-06-13 03:37] LABS: Calcium 10.1 mg/dL (8.7-10.3); Parathyroid Hormone, Intact 34 pg/mL (15-65)
== END ==
PROVIDERS: PCP Internal Medicine; Referring Provider Internal Medicine; Visit Provider Internal Medicine
DX: E11.42 Type 2 diabetes mellitus with diabetic polyneuropathy (principal); E78.2 Mixed hyperlipidemia; I10 Essential (primary) hypertension; I25.10 Atherosclerotic heart disease of native coronary artery without angina pectoris; N18.31 Chronic kidney disease, stage 3a
CPT/HCPCS: 36415; 80053; 80061; 82043; 82310; 82570; 83036; 83970; 84443; 85027

== ENCOUNTER → 2022-06-28 09:42 | Outpatient (CLI) | payer MEDICARE, OTHER, SELFPAY ==
[2020-05-27 14:56] VITALS: BMI 32.8
[2022-06-29 11:57] LABS: Fecal Immunochemical Test Negative (Negative)
== END ==
PROVIDERS: PCP Internal Medicine; Referring Provider Internal Medicine; Visit Provider Internal Medicine
DX: Z12.11 Encounter for screening for malignant neoplasm of colon (principal)
CPT/HCPCS: 82274

== ENCOUNTER → 2022-06-30 12:24 | Outpatient (CLI) | payer MEDICARE, OTHER, SELFPAY ==
[2020-05-27 14:56] VITALS: BMI 32.8
--- NOTE | 2022-06-30 12:34 | DI.DEXA.S_ITS ---
Indication: postmenopausal; screening for osteoporosis; Referring Provider: JOSHUA ARAGON Study: Bone densitometry was performed. Exam Date: June 30, 2022 Accession number: [id number] Bone Density: Region BMD T-score Z-score Classification Femoral Neck (Left) 0.808 -0.4 1.8 Normal Total Hip (Left) 1.039 0.8 2.7 Normal Femoral Neck (Right) 0.646 -1.8 0.4 Osteopenia Total Hip (Right) 1.102 1.3 3.3 Normal Total Hip Mean 1.071 1.1 3.0 Normal Total Forearm (Left) 0.518 -1.1 1.6 Osteopenia 1/3 Forearm (Left) 0.614 -1.3 1.5 Osteopenia UD Forearm (Left) 0.415 -0.5 1.6 Normal World Health Organization criteria for BMD impression classify patients as: Normal (T-score at or above -1.0), Osteopenia (T-score between -1.0 and -2.5), or Osteoporosis (T-score at or below -2.5). 10-year Fracture Risk(1): Major Osteoporotic Fracture 13% Hip Fracture 3.3% Reported Risk Factors: [place] (), Neck BMD=0.646, BMI=33.1 (1) FRAX(R) Version 3.08. Fracture probability calculated for an untreated patient. Fracture probability may be lower if the patient has received treatment. Previous Exams: -- Region Exam Age BMD T-score BMD Change BMD Change Date g/cm2 vs Baseline vs Previous -- Total Hip(Left) 06/30/2022 76 1.039 0.8 -0.198 (-16.0%)# -0.198 (-16.0%)# 01/08/2011 65 1.237 2.4 Total Hip(Right) 06/30/2022 76 1.102 1.3 -0.109 (-9.0%)# -0.109 (-9.0%)# 01/08/2011 65 1.211 2.2 -- *Denotes significance at 95% confidence level, LSC for Total Hip = 0.027 g/cm2 # Denotes dissimilar scan types or analysis methods Impression: The patient has low bone mass, based on the Right Femoral Neck T-score. The patient has an estimated ten-year risk of hip fracture of 3.3% and an estimated ten-year risk of major fracture of 13%, based on the WHO FRAX algorithm. No significant bone loss was observed. Discussion: BONE DENSITY IS LOW AT ONE OR MORE SKELETAL SITES. THE PATIENT'S BMD AND CLINICAL RISK FACTORS CONTRIBUTE TO THIS PATIENT'S INCREASED RISK OF FRACTURE. This patient's lowest T-score is low at one or more skeletal sites. It meets the World Health Organization's (WHO) criteria for ?low bone mass? (T-score between -1.0 and -2.5). The patient's 10-year risk of hip fracture as calculated by FRAX exceeds the threshold where pharmacological therapy is recommended by the National Osteoporosis Foundation (NOF). However, all treatment decisions require clinical judgment and consideration of individual patient factors, including patient preferences, comorbidities, previous drug use, risk factors not captured in the FRAX model (e.g., frailty, falls, vitamin D deficiency, increased bone turnover, interval significant decline in bone density) and possible under or overestimation of fracture risk by FRAX. The patient should follow a healthful lifestyle (good nutrition with adequate calcium and vitamin D, and appropriate weight-bearing exercise). Follow-Up: Consider a repeat BMD and Vertebral Fracture Assessment (VFA) exam in 2 years or sooner if medically necessary, to reassess this patient's status. Reported by: SHONNA RIOS M.D. on 06/30/2022 12:49:00 PM.
== END ==
PROVIDERS: PCP Internal Medicine; Referring Provider Internal Medicine; Visit Provider Internal Medicine
DX: Z78.0 Asymptomatic menopausal state (principal); Z13.820 Encounter for screening for osteoporosis; M85.851 Other specified disorders of bone density and structure, right thigh; Z90.710 Acquired absence of both cervix and uterus
CPT/HCPCS: 77080

== ENCOUNTER → 2022-08-26 16:14 | Outpatient (CLI) | payer MEDICARE, OTHER, SELFPAY ==
[2020-05-27 14:56] VITALS: BMI 32.8
--- NOTE | 2022-09-09 11:24 | DIAB.MNT ---
Initial Diabetes Medical Nutrition Therapy Assessment Name: Razia Carias (Ashley) Date: 08/26/22 Time: 430-540p Dx: Type II Diabetes Provider: Carlos Ashley presents with spouse, Eddie, for initial DM visit. States she has had DM for years and has had trouble with getting enough blood via finger stick. HgA1c up to 9.5% 06/2022. Currently taking Metformin and glipizide, not taking Jardiance. States she has never taking Jardiance and has not heard anything from her pharmacy. Denies FH of DM. Reports previous provider in [facility]. Reported HgA1c hx of 6.9-7%. Interested in CGM trial. Current [facility] guidelines will not cover a personal CGM. Can trial a starter kit to see if she likes the CGM and determine trends. Would benefit from professional CGM or out of pocket personal CGM given reported difficulty with SMBG. Sees wound care for ulcers. Diet Recall: 12-1p: half bagel with cream cheese and 12oz milk 7p: 3-4oz protein, veggies, 10 tater tots, 12 oz milk sn: nothing or one cookie Beverages; 36oz water, 24oz milk Anthropometrics: Ht: 64 Wt: 193# 06/2022 last PCP visit Physical Activity: stationary bike 3-4x per week for one hour Self-Monitoring Blood Glucose: None due to difficulty getting blood sample. Diabetes Medications: Metformin 1000mg BID Glipizide 5mg Jardiance 25mg (not taking) Pertinent Labs: Past Medical History: (Last Reviewed 09/02/22 @ 11:21 by Anthony Gonzalez MD) Amputated toe of left foot left 2nd toe CAD (coronary artery disease) Carpal tunnel syndrome (~1999) Cerebrovascular disease Chicken pox (~1954) Chronic low back pain DDD (degenerative disc disease) Essential hypertension Foot ulcer due to secondary DM right foot, recurrent, chronic, non-healing, surgery w/skin graft, improved Incontinence in female Lower urinary tract symptoms (LUTS) Lumbar stenosis Mixed hyperlipidemia Mumps (~1955) Osteopenia Peripheral arterial disease Polyneuropathy, unspecified 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 Provided appropriate educational handouts. Discussed the following topics: Completed intake assessment. Importance of self-monitoring, SMBG versus CGM Options for CGM, CGM education on use and precautions, insurance coverage and predicted out of pocket costs Dexcom + dope sprayer education and trial Medication education: Jardiance action and benefits and precautions Plate Method, impact of macronutrients on blood sugar, meal timing, pairing macronutrients and spreading out carbohydrates for better blood glucose management Nutrients for wound healing Recommended servings for carbohydrates at meals and snacks Role of physical activity Created SMART goals for patient self-care and success. Goals: Ask pharmacy about Jardiance rx Add protein snack daily Keep CGM dope sprayer within 20 feet Follow-up: DEREK MCKEON follow-up in 2-3 weeks Katarina Chauhan RDN, [facility] Certified Diabetes Care and Recenterer P: [phone] Thank you for this referral
== END ==
PROVIDERS: Absent Provider Internal Medicine; Family Provider Internal Medicine; PCP Internal Medicine; Referring Provider Internal Medicine; Visit Provider Internal Medicine
DX: E11.42 Type 2 diabetes mellitus with diabetic polyneuropathy (principal); Z79.84 Long term (current) use of oral hypoglycemic drugs; Z71.3 Dietary counseling and surveillance
CPT/HCPCS: 97802

== ENCOUNTER → 2022-09-09 12:47 | Outpatient (CLI) | payer MEDICARE, OTHER, SELFPAY ==
[2020-05-27 14:56] VITALS: BMI 32.8
--- NOTE | 2022-09-09 14:33 | DIAB.FU ---
Follow-up Diabetes Education Assessment Name: Razia Carias (Ashley) Date: 09/09/22 Time: 1-2p Dx: Type II Diabetes Provider: Carlos Ashley presents for DM follow-up with spouse, Eddie. Tried Dexcom G6 with guest advisor with success. States she noticed elevations each time she ate, see SMBG below. Reports mostly low carb meals, ie 1/3 bagel with cream cheese, 12oz milk (30g CHO) or stew with 1/2c potato and milk (30g CHO). Has added PB snack in evening, which did not impact BG and has increased protein intake helpful for wound healing. Ashley may benefit from increase/addition of DM medication. Plans to see provider at the end of this month. Though she has historically been against adding insulin, today we discussed all affordable options including insulin. States they called pharmacy and Jardiance was unaffordable. Likely only other options are increasing glipizide or adding evening insulin. Encouraged discussion with provider. If she does add insulin to her regimen, she would qualify for a personal CGM. Increase in HgA1c may just be indication of progression of DM. Physical Activity: stationary bike 3-4x per week for one hour Self-Monitoring Blood Glucose: Dexcom G6 starter kit x 10 days with guest advisor. During fasting times, Pat often has a consistent BG of 130-180mg/dl, and after eating BG often rises in 200-280mg/dl range. Will send results to provider. Time in range: 8% very high 32% high 60% in target 0% low Avg B mg/dl Diabetes Medications: Metformin 1000mg BID Glipizide 5mg Jardiance 25mg (not taking) Pertinent Labs: HgA1c 9.5% 06/2022 Past Medical History: (Last Reviewed 09/02/22 @ 11:21 by Anthony Gonzalez MD) Amputated toe of left foot left 2nd toe CAD (coronary artery disease) Carpal tunnel syndrome (~1999) Cerebrovascular disease Chicken pox (~1954) Chronic low back pain DDD (degenerative disc disease) Essential hypertension Foot ulcer due to secondary DM right foot, recurrent, chronic, non-healing, surgery w/skin graft, improved Incontinence in female Lower urinary tract symptoms (LUTS) Lumbar stenosis Mixed hyperlipidemia Mumps (~1955) Osteopenia Peripheral arterial disease Polyneuropathy, unspecified 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 Provided appropriate educational handouts. Discussed the following topics: Recent blood sugar results and trends Medication management: action of glipizide and long-acting insulin, affordable options for medications Personal CGM: potential for this if she and provider decide to start insulin Review of general nutrition recommendations and current intake Protein and wound healing Created SMART goals for patient self-care and success. Goals: Ask pharmacy about Jardiance rx- met Add protein snack daily - met Keep CGM guest advisor within 20 feet - met Discuss medication options with provider- new Continue working on protein during the day for wound healing- new Follow-up: DEREK MCKEON follow-up prn at this time. Encouraged pt to coordinate DM care with provider or call DM education office this month for questions or additional follow-up needs. If needing follow-up between October and Feb suggest [facility]. Will coordinate with [facility]'s staff about next steps if Pat needs personal CGM. Katarina Chauhan RDN, [facility] Certified Diabetes Care and Manager Of Merchandising P: [phone] Thank you for this referral
== END ==
PROVIDERS: Family Provider Internal Medicine; PCP Internal Medicine; Referring Provider Internal Medicine; Visit Provider Internal Medicine
DX: E11.9 Type 2 diabetes mellitus without complications (principal); Z79.84 Long term (current) use of oral hypoglycemic drugs; Z71.3 Dietary counseling and surveillance
CPT/HCPCS: G0108

== ENCOUNTER → 2022-11-24 17:30 | Outpatient (CLI) | payer MEDICARE, OTHER, SELFPAY ==
[2020-05-27 14:56] VITALS: BMI 32.8
[2022-11-24 18:43] LABS: Alanine Aminotransferase 16 IU/L (<35); Albumin 4.3 g/dL (3.5-5.0); Albumin Globulin Ratio 1.3 (1.0-2.8); Alkaline Phosphatase 198 U/L (38-126); Aspartate Aminotransferase 21 IU/L (14-36); BUN Creatinine Ratio 18.6 (6-22); Bilirubin Total 0.6 mg/dL (0.2-1.3); Blood Urea Nitrogen 18 mg/dL (7-17); Calcium 10.1 mg/dL (8.4-10.2); Carbon Dioxide 24 mmol/L (22-32); Chloride 99 mmol/L (98-107); Cholesterol 179 mg/dL (140-199); Estimated Glomerular Filt Rate 60 mL/min (>60); Globulin 3.4 g/dL (1.7-4.1); Glucose 243 mg/dL (80-110); HDL Cholesterol 48 mg/dL (40-60); HEMOLYSIS < 15 (0-50); LDL Cholesterol Calculated 57 mg/dL (<100); Potassium 4.6 mmol/L (3.4-5.1); Sodium 136 mmol/L (137-145); Total Protein 7.7 g/dL (6.3-8.2); Triglycerides 372 mg/dL (35-150)
[2022-11-26 13:36] LABS: x Labcorp Estim. Avg Glu (eAG) 266 mg/dL (.); x Labcorp Hemoglobin A1c 10.9 % (4.8-5.6)
== END ==
PROVIDERS: Family Provider Internal Medicine; PCP Internal Medicine; Referring Provider Internal Medicine; Visit Provider Internal Medicine
DX: E78.2 Mixed hyperlipidemia; N18.31 Chronic kidney disease, stage 3a; E11.42 Type 2 diabetes mellitus with diabetic polyneuropathy
CPT/HCPCS: 36415; 80053; 80061; 83036

== ENCOUNTER → 2023-07-04 12:50 | Outpatient (CLI) | payer MEDICARE, OTHER, SELFPAY ==
[2020-05-27 14:56] VITALS: BMI 32.8
--- NOTE | 2023-07-04 12:51 | DI.MG.S_ITS ---
BILATERAL DIGITAL SCREENING MAMMOGRAM 3D/2D WITH CAD: 07/04/2023 CLINICAL: Routine screening. Comparison is made to exams dated: 06/09/2022 mammogram, 12/30/2020 mammogram, 10/11/2019 mammogram, 10/02/2018 mammogram, and 09/22/2017 mammogram - [facility]. There are scattered areas of fibroglandular density in both breasts (category b / 25%-50% glandular tissue). Current study was also evaluated with a Computer Aided Detection (CAD) system. No significant masses, calcifications, or other findings are seen in either breast. There has been no significant interval change. IMPRESSION: NEGATIVE There is no mammographic evidence of malignancy. A 1 year screening mammogram is recommended. Based on the Tyrer Cuzick model (a risk assessment model) the patient's lifetime risk is 2.4% and her 10 year risk is 0.0%. According to the ACR, ACS, and NCCN guidelines, an annual breast MRI exam along with mammogram is recommended if the patient's lifetime risk is 20% or greater. This exam was interpreted at Station ID: [id number]. NOTE: For mammograms, a report in lay terms will be sent to the patient. Approximately 15% of breast malignancies will not be visualized mammographically. In the management of a palpable breast mass, a negative mammogram must not discourage biopsy of a clinically suspicious lesion. Electronically Signed By: Andi castellanos/janes:07/04/2023 13:43:33 letter sent: Normal Exam ACR BI-RADS Category 1: Negative [id number]
== END ==
PROVIDERS: Family Provider Internal Medicine; PCP Internal Medicine; Referring Provider Internal Medicine; Visit Provider Internal Medicine
DX: Z12.31 Encounter for screening mammogram for malignant neoplasm of breast (principal); R92.323 Mammographic fibroglandular density, bilateral breasts
CPT/HCPCS: 77063; 77067

== ENCOUNTER → 2023-07-28 15:45 | Outpatient (CLI) | payer MEDICARE, OTHER, SELFPAY ==
[2020-05-27 14:56] VITALS: BMI 32.8
[2023-07-28 17:01] LABS: Hematocrit 33.3 % (36-46); Hemoglobin 10.6 g/dL (12.0-16.0); Mean Corpuscular Hemoglobin 26.1 PG (26-34); Mean Corpuscular Volume 81.6 fL (80-100); Platelet Count 467 X10^3/uL (150-400); Red Blood Cell Count 4.08 X10^6/uL (4.0-5.2); Red Cell Distribution Width 17.8 % (11.6-14.8); White Blood Cell Count 10.8 X10^3/uL (4.5-11.0)
[2023-07-28 17:22] LABS: Alanine Aminotransferase 19 IU/L (<35); Albumin 4.3 g/dL (3.5-5.0); Albumin Globulin Ratio 1.3 (1.0-2.8); Alkaline Phosphatase 135 U/L (38-126); Aspartate Aminotransferase 27 IU/L (14-36); BUN Creatinine Ratio 19.8 (6-22); Bilirubin Total 0.7 mg/dL (0.2-1.3); Blood Urea Nitrogen 20 mg/dL (7-17); Calcium 10.1 mg/dL (8.4-10.2); Carbon Dioxide 24 mmol/L (22-32); Chloride 106 mmol/L (98-107); Estimated Glomerular Filt Rate 57 mL/min (>60); Globulin 3.2 g/dL (1.7-4.1); Glucose 209 mg/dL (80-110); HEMOLYSIS < 15 (0-50); Sodium 138 mmol/L (137-145); Total Protein 7.5 g/dL (6.3-8.2)
[2023-07-28 17:58] LABS: Hemoglobin A1C% w Est Avg Glu 10.5 % (4.0-6.0)
== END ==
PROVIDERS: Family Provider Internal Medicine; PCP Internal Medicine; Referring Provider Internal Medicine; Visit Provider Internal Medicine
DX: E11.42 Type 2 diabetes mellitus with diabetic polyneuropathy (principal); I12.9 Hypertensive chronic kidney disease with stage 1 through stage 4 chronic kidney disease, or unspecified chronic kidney disease; N18.31 Chronic kidney disease, stage 3a
CPT/HCPCS: 36415; 80053; 83036; 85027

== ENCOUNTER 2023-07-29 08:33 | Inpatient (IN) | payer MEDICARE, OTHER, SELFPAY ==
[2020-05-27 14:56] VITALS: BMI 32.8
[2023-07-29] VITALS (51 sets, daily range): BP systolic 62–151; BP diastolic 39–107; PULSE 76–146; RESP 12–36; TEMP 36.1–36.6; O2SAT 89–100; BMI 30.9; BMI 29.1
--- NOTE | 2023-07-29 09:54 | ED.ABDPAIN ---
HPI - Abdominal Pain General Chief Complaint: Urogenital-Female Stated Complaint: per pt urinary blockage, poss kidney stone Time Seen by Provider: 07/29/23 09:54 Source: patient Mode of arrival: Family Vehicle History of Present Illness HPI narrative: Patient is a 78-year-old female history coronary artery disease with stent LAD in 2019, peripheral vascular disease, CVA, hypertension diabetes presents today with painful frequent urination. She reports that she was able to urinate. Nurse did a straight catheterization 200 cc removed. She does have some leukocytes. She is now sleeping however her heart rate is noted to be in the 140s with AFib. Has been reports that she has no known history of atrial fibrillation. She was admitted to [facility] July 20 through the where she had underwent pharmacy no mechanical thrombolysis with angio jet of the SFA and popliteal arteries in the right lower extremity. Transluminal balloon at angioplasty and shockwave of the popliteal artery and SFA in the right lower extremity, 1 stent placed in the above the knee popliteal artery and distal SFA post dilated with a 6 mm balloon. Left extremity was not revascularized. She is discharged home on Brilinta 60 mg twice a day. Patient sleeping but has been states that she denies any chest pain palpitations or syncopal episodes. She is noted to be tachycardic to be new onset AFib with RVR Related Data Home Medications Medication Instructions Recorded Confirmed metformin 500 mg tablet 1,000 mg PO BID 09/20/17 07/29/23 metoprolol succinate 50 mg 50 mg PO QAM 09/20/17 07/29/23 tablet,extended release 24 hr nitrofurantoin macrocrystal 50 mg 50 mg PO BEDTIME 02/25/21 07/29/23 capsule ascorbic acid (vitamin C) [Super C 20,000 mg PO DAILY 06/11/22 07/29/23 Complex] aspirin 81 mg tablet,delayed 81 mg PO BID 06/11/22 07/29/23 release cholecalciferol (vitamin D3) 125 125 mcg PO DAILY 06/11/22 07/29/23 mcg (5,000 unit) capsule cranberry 1 cap PO DAILY 06/11/22 07/29/23 estradiol 10 mcg vaginal tablet 10 mcg vaginal 3XW 06/11/22 07/29/23 multivitamin 1 tab PO DAILY 06/11/22 07/29/23 cyanocobalamin (vitamin B-12) 1,000 mcg PO DAILY 06/15/23 07/29/23 1,000 mcg capsule gabapentin 300 mg capsule 600 mg PO BEDTIME 06/15/23 07/29/23 glipizide 5 mg tablet 5 mg PO DAILY 06/15/23 07/29/23 zinc gluconate 50 mg PO DAILY 06/15/23 07/29/23 acetaminophen 500 mg tablet 1,000 mg PO BID 07/28/23 07/29/23 (Acetaminophen Extra Strength) atorvastatin 40 mg tablet 40 mg PO BEDTIME 07/28/23 07/29/23 ticagrelor 60 mg tablet (Brilinta) 60 mg PO BID 07/28/23 07/29/23 Miralax 1 cap PO PRN PRN Constipation 07/29/23 07/29/23 magnesium 250 mg tablet 250 mg PO DAILY 07/29/23 07/29/23 mirabegron 50 mg tablet,extended 60 mg PO DAILY 07/29/23 07/29/23 release 24 hr (Myrbetriq) omega-3 fatty acids 1,200 mg PO DAILY 07/29/23 07/29/23 potassium gluconate 550 mg (90 mg) 550 mg PO DAILY 07/29/23 07/29/23 tablet vitamin E 200 unit capsule 180 mg PO DAILY 07/29/23 07/29/23 Allergies Allergy/AdvReac Type Severity Reaction Status Date / Time nut - unspecified Allergy Severe Anaphylaxis Verified 07/28/23 13:08 feathers Allergy Mild Verified 07/28/23 13:08 ketorolac [KETOROLAC] Allergy Mild itching Verified 07/28/23 13:08 coconut Allergy Unknown Allergy Verified 07/28/23 13:08 testing - unknown reaction Penicillins Allergy Unknown Had Verified 07/28/23 13:08 allergy testing, told not to take, unknown reation empagliflozin AdvReac Severe Muscle Pain Verified 07/28/23 14:57 [From Jardiance] Patient History Medical History Do not resuscitate Osteopenia Venous (peripheral) insufficiency Urinary incontinence Slow transit constipation Primary osteoarthritis involving multiple joints Cerebrovascular disease Peripheral arterial disease Chronic low back pain Stage 3a chronic kidney disease (CKD) Mixed hyperlipidemia Essential hypertension Polyneuropathy, unspecified Type 2 diabetes mellitus with polyneuropathy Carpal tunnel syndrome (~1999) Mumps (~1955) Chicken pox (~1954) Postmenopausal atrophic vaginitis Lower urinary tract symptoms (LUTS) Incontinence in female Foot ulcer due to secondary DM DDD (degenerative disc disease) CAD (coronary artery disease) Amputated toe of left foot Lumbar stenosis Surgical History Anesthesia History of knee surgery History of lumbar fusion S/P foot surgery, left Hx of tonsillectomy Status post cataract extraction of both eyes with insertion of intraocular lens Hx of heart artery stent S/P foot surgery, right Family History Mother Cancer Father Gangrene Social History household members: spouse Smoking Status: Never smoker alcohol intake: current Smoking Status: Never smoker alcohol intake frequency: holidays/special occasions only Substance Use Type: does not use Exam Initial Vital Signs Initial Vital Signs: Vital Signs Pulse Rate 76 07/29/23 08:56 Blood Pressure 116/76 07/29/23 08:56 GENERAL: Sleeping move HEENT: Head atraumatic,EOMI, pupils reactive, face symmetric, [moist] mucous membranes CARDIOVASCULAR: Irregularly irregular tachycardic RESPIRATORY: Breath sounds equal bilaterally, no wheezes rales or rhonchi. ABDOMEN: Soft, nontender. Normoactive bowel sounds all 4 quadrants. No guarding or rebound. EXTREMITIES: Normal range of motion, no clubbing or edema. Neurovascularly intact. NEUROLOGICAL: Alert and oriented x4.Normal gait and speech. SKIN: Warm, dry, no laceration, no petechiae, no rashes or lesions. Dressing placed on right lower extremity Course Orders Ordered: ED Orders 07/29/23 10:29 Urine Culture Stat Urine Microscopic Stat 07/29/23 11:31 Troponin I Stat 07/29/23 13:25 EC echo doppler complete Urgent Acetaminophen (Acetaminophen 325 Mg Tablet) 650 mg PO Q6H PRN PRN Reason: Fever/Mild Pain (1-3) Apixaban (Apixaban 5 Mg Tablet) 5 mg PO BID KRISTIE Aspirin (Aspirin Ec 81 Mg Tablet) 81 mg PO DAILY KRISTIE Atorvastatin Calcium (Atorvastatin 20 Mg Tablet) 40 mg PO BEDTIME KRISTIE Docusate Sodium (Docusate 100 Mg Capsule) 100 mg PO BID [facility] DILTIAZEM (Diltiazem 125 Mg/125 Ml-D5w) 125 mg in 125 mls @ 5 mls/hr IV TITRATE KRISTIE; Protocol Last Titration: 07/29/23 13:04 Dose: 0 mg/hr, 0 mls/hr Documented By: Titration: 07/29/23 12:59 Dose: 5 mg/hr, 5 mls/hr Documented By: Titration: 07/29/23 12:34 Dose: 0 mg/hr, 0 mls/hr Documented By: Titration: 07/29/23 12:05 Dose: 15 mg/hr, 15 mls/hr Documented By: Titration: 07/29/23 11:37 Dose: 10 mg/hr, 10 mls/hr Documented By: Admin: 07/29/23 10:43 Dose: 5 mg/hr, 5 mls/hr Documented By: KENAN Dextrose (D10w) 100 mls @ 999 mls/hr IV PRN PRN PRN Reason: Hypoglycemia Ceftriaxone Sodium 1,000 mg/ (Sodium Chloride) 100 mls @ 200 mls/hr IV Q24H [facility] Stop: 07/31/23 13:01 Insulin Human Lispro (Insulin Lispro 100 Unit/Ml 3ml Vial) 0 unit SUBCUT ACHS [facility]; Protocol Last Admin: 07/29/23 17:27 Dose: 1 unit Documented By: JAMES Co-signed By: BHAVANA Magnesium Hydroxide (Magnesium Hydroxide 30 Ml Udc) 30 ml PO DAILY PRN PRN Reason: Constipation Metoprolol Tartrate (Metoprolol Ir 50 Mg Tablet) 50 mg PO Q6H [facility] Naloxone HCl (Naloxone 0.4 Mg/Ml Vial) 0.2 mg IV Q2MIN PRN PRN Reason: Opiate Reversal Ticagrelor [Brilinta (] 60 Mg Tablet) 60 mg PO BID [facility] Ondansetron HCl (Ondansetron 4 Mg Odt) 4 mg SL NOW PRN PRN Reason: Nausea And Vomiting Ondansetron HCl (Ondansetron 4 Mg/2 Ml Inj) 4 mg IV NOW PRN PRN Reason: Nausea And Vomiting Ondansetron HCl (Ondansetron 4 Mg/2 Ml Inj) 4 mg IV Q8HR PRN PRN Reason: Nausea And Vomiting Sennosides (Sennosides 8.6 Mg Tablet) 17.2 mg PO BEDTIME KRISTIE Discontinued Medications Apixaban (Apixaban 5 Mg Tablet) 5 mg PO NOW ONE Stop: 07/29/23 14:37 Last Admin: 07/29/23 15:07 Dose: 5 mg Documented By: JAMES Diltiazem HCl (Diltiazem 5 Mg/Ml Sdv) 10 mg IV NOW ONE Stop: 07/29/23 09:57 Last Admin: 07/29/23 10:06 Dose: 10 mg Documented By: KENAN Ceftriaxone Sodium 1,000 mg/ (Sodium Chloride) 100 mls @ 200 mls/hr IV NOW ONE Stop: 07/29/23 12:58 Last Infusion: 07/29/23 13:51 Dose: Infused Documented By: Admin: 07/29/23 13:08 Dose: 200 mls/hr Documented By: KENAN Metoprolol Succinate (Metoprolol Er 25 Mg Tablet) 25 mg PO NOW ONE Stop: 07/29/23 12:35 Last Admin: 07/29/23 13:53 Dose: 25 mg Documented By: KENAN Metoprolol Tartrate (Metoprolol Ir 25 Mg Tablet) 25 mg PO NOW ONE Stop: 07/29/23 14:57 Last Admin: 07/29/23 15:07 Dose: 25 mg Documented By: JAMES Vital Signs Vital signs: Vital Signs - 8 hr 07/29/23 12:05 07/29/23 12:05 07/29/23 12:10 Pulse Rate 127 H 127 H Respiratory Rate 17 20 Blood Pressure 111/65 Pulse Oximetry 96 99 07/29/23 12:10 07/29/23 12:15 07/29/23 12:15 Pulse Rate 130 H Respiratory Rate 20 Blood Pressure 105/56 L 92/59 L Pulse Oximetry 100 07/29/23 12:20 07/29/23 12:20 07/29/23 12:26 Pulse Rate 122 H 121 H Respiratory Rate 18 12 Blood Pressure 103/61 Pulse Oximetry 98 99 07/29/23 12:26 07/29/23 12:30 07/29/23 12:30 Pulse Rate 116 H Respiratory Rate 21 Blood Pressure 99/58 L 66/47 L Pulse Oximetry 98 07/29/23 12:33 07/29/23 12:33 07/29/23 12:35 Pulse Rate 113 H 110 H Respiratory Rate 17 15 Blood Pressure 75/56 L Pulse Oximetry 99 100 07/29/23 12:35 07/29/23 12:40 07/29/23 12:40 Pulse Rate 125 H Respiratory Rate 16 Blood Pressure 105/58 L 98/57 L Pulse Oximetry 98 07/29/23 12:45 07/29/23 12:45 07/29/23 12:51 Pulse Rate 118 H 121 H Respiratory Rate 14 19 Blood Pressure 108/54 L Pulse Oximetry 100 100 07/29/23 12:51 07/29/23 12:56 07/29/23 12:56 Pulse Rate 127 H Respiratory Rate 28 H Blood Pressure 96/53 L 103/56 L Pulse Oximetry 100 07/29/23 13:00 07/29/23 13:00 07/29/23 13:04 Pulse Rate 135 H 135 H Respiratory Rate 29 H 26 H Blood Pressure 62/39 L Pulse Oximetry 100 99 07/29/23 13:04 07/29/23 13:05 07/29/23 13:05 Pulse Rate 127 H Respiratory Rate 22 Blood Pressure 104/62 95/60 Pulse Oximetry 100 07/29/23 13:10 07/29/23 13:10 07/29/23 13:15 Pulse Rate 134 H 132 H Respiratory Rate 20 22 Blood Pressure 108/52 L Pulse Oximetry 100 99 07/29/23 13:15 07/29/23 13:20 07/29/23 13:20 Pulse Rate 131 H Respiratory Rate 26 H Blood Pressure 103/71 92/69 Pulse Oximetry 89 L 07/29/23 13:26 07/29/23 13:26 07/29/23 13:30 Pulse Rate 133 H 130 H Respiratory Rate 17 Blood Pressure 131/86 Pulse Oximetry 89 L 100 07/29/23 13:31 07/29/23 13:31 Pulse Rate 136 H Respiratory Rate Blood Pressure 112/73 Pulse Oximetry 96 MDM - Abdominal Pain Lab Data 07/29/23 09:16 07/29/23 09:16 Labs: Lab Results 07/29/23 07/29/23 07/29/23 Range/Units 09:16 10:29 11:31 WBC 10.8 (4.5-11.0) X10^3/uL RBC 4.34 (4.0-5.2) X10^6/uL Hgb 11.2 L (12.0-16.0) g/dL Hct 35.7 L (36-46) % MCV 82.2 (80-100) fL MCH 25.9 L (26-34) PG MCHC 31.5 (30-36) % RDW 17.8 H (11.6-14.8) % Plt Count 414 H (150-400) X10^3/uL Neut % (Auto) 64.6 (50-75) % Lymph % (Auto) 26.0 (25-40) % [place] % (Auto) 7.9 (3-14) % Eos % (Auto) 0.8 L (2-4) % Baso % (Auto) 0.7 (0-2) % Neut # (Auto) 6900 (7170-8355) /uL Lymph # (Auto) 2800 (0159-5093) /uL [place] # (Auto) 800 (0-900) /uL Eos # (Auto) 100 (0-450) /uL Baso # (Auto) 100 (0-100) /uL Sodium 138 (137-145) mmol/L Potassium 4.5 (3.4-5.1) mmol/L Chloride 107 (98-107) mmol/L Carbon Dioxide 20 L (22-32) mmol/L BUN 23 H (7-17) mg/dL Creatinine 1.06 H (0.52-1.04) mg/dL Estimated GFR 53 L (>60) mL/min BUN/Creatinine Ratio 21.7 (6-22) Glucose 224 H (80-110) mg/dL Calcium 10.5 H (8.4-10.2) mg/dL Total Bilirubin 0.9 (0.2-1.3) mg/dL AST 139 H (14-36) IU/L ALT 22 (<35) IU/L Alkaline Phosphatase 123 (38-126) U/L Total Creatine Kinase 120 (30-135) U/L Troponin I < 0.012 < 0.012 (0.01-0.034) ng/mL NT-Pro-B Natriuret Pep 4630 H (<450) pg/mL Total Protein 8.0 (6.3-8.2) g/dL Albumin 4.5 (3.5-5.0) g/dL Globulin 3.5 (1.7-4.1) g/dL Albumin/Globulin Ratio 1.3 (1.0-2.8) Lipase 72 (23-300) U/L Urine RBC None seen (0-5/HPF) Urine WBC 10-30/hpf H (0-5/HPF) Ur Squamous Epith Cells 0-1 /hpf (0-5/HPF) Urine Bacteria None seen (None) Vol Urine Centrifuged 10ml (spun) Point of care testing: Urine Dip Bedside Urine Glucose Negative Bedside Urine Bilirubin - Negative Bedside Urine Ketone +/- 5 Urine Specific [place] 1.005 Bedside Urine Occult Blood + Bedside Urine pH 7 Bedside Urine Protein - Negative Bedside Urine Urobilinogen - Negative Bedside Urine Nitrite - Negative Bedside Urine Leukocytes +++ 500 Esterase Imaging Data Chest x-ray: Radiologist's Impression: PROCEDURE: XR CHEST 1V INDICATIONS: chest pain TECHNIQUE: One view of the chest was acquired. COMPARISON: None. FINDINGS: Surgical changes and devices: None. Lungs and pleura: Lungs are clear. No pleural effusions or pneumothorax. Mediastinum: Mediastinal contours appear normal. Heart size is normal. Bones and chest wall: No suspicious bony lesions. Overlying soft tissues appear unremarkable. IMPRESSION: No acute cardiopulmonary abnormality is seen. Dictated by: Juan Thompson M.D. on 07/29/2023 at 10:27 CT scan - chest: Radiologist's Impression: PROCEDURE: CT ANGIO CHEST PE PROTOCOL INDICATIONS: new onset afib TECHNIQUE: After the administration of intravenous contrast, 2 mm thick sections acquired from the pulmonary apices to the posterior costophrenic angles. 3-dimensional maximum intensity projection (MIP) coronal and sagittal reformats were then acquired through the thorax. For radiation dose reduction, the following was used: automated exposure control, adjustment of mA and/or kV according to patient size. COMPARISON: None. FINDINGS: Image quality: Diagnostic. Pulmonary arteries: Pulmonary arteries are normal in size, and demonstrate no intraluminal filling defects to suggest central pulmonary embolism. Lower Neck: No enlarged lymph nodes. Thyroid: No thyroid nodules which require sonographic follow up, per consensus guidelines. Axillae: No enlarged lymph nodes. Chest Wall: Unremarkable. Bones: Diffuse osteopenia with mild increased thoracic kyphosis.. Lungs and Pleura: No pneumothorax or pleural effusions. No consolidation or suspicious nodules. Heart: Heart size is normal. No pericardial effusion. Severe coronary artery calcifications. Question LAD stent. Thoracic Vessels: Upper limits of normal ascending aorta, measuring 4.0 cm. Mediastinum and [place]: No enlarged lymph nodes. Esophagus: No wall thickening. No hiatal hernia. Upper Abdomen: Visualized upper abdomen solid organs and bowel loops appear normal. IMPRESSION: No pulmonary embolus. No acute cardiopulmonary process. Severe coronary artery calcifications, question coronary artery stent. Borderline aneurysmal dilatation of the ascending aorta, measuring 4.0 cm. Dictated by: Juan Thompson M.D. on 07/29/2023 at 11:29 ECG Data Interpretation: Atrial fibrillation rate [address] changes previous EKGs show sinus rhythm MDM Narrative Medical decision making narrative: Patient is 78-year-old female presents today with painful frequent urination. She just had significant hospitalization with peripheral vascular disease and stenting in her lower extremities. No prior history atrial fibrillation. She is on Brilinta but no other anticoagulation. She is found to be in AFib with RVR with a heart rate in the 140s. Blood work reviewed hemoglobin 10.8, hemoglobin 11.2, hematocrit 35.7, platelets 414, sodium 138 potassium 4.5, chloride 107, carbon dioxide 20, cr 1.06 troponin negative x2 BNP 4630 Imaging reviewed x-ray no acute cardiopulmonary process, CT angio does not show any pulmonary embolism EKG shows new onset atrial fibrillation Treatment includes diltiazem push of 10 mg then diltiazem drip and metoprolol, Rocephin Patient is having some painful frequent urination initially thought to have some urinary retention of however she only had 200 cc in her bladder. She then developed AFib with RVR she is completely asymptomatic has absolutely no chest pain or palpitations. This does seem to be new diagnosis for her. I reviewed records from recent hospitalization without mention of it. She is hemodynamically stable. She initially did respond to diltiazem and was ultimately put on diltiazem drip. She was then given a dose of metoprolol. Blood pressure eventually did decrease with the diltiazem. Not a for cardioversion, she is asymptomatic unclear exactly when her AFib started. Dr. Bonds, at patient bedside in the ED to see and evaluate and accepts to observation Discharge Plan Departure Patient Disposition: Admitted as Observation Clinical Impression: Atrial fibrillation with rapid ventricular response, Acute UTI Admit Date/Time: 07/29/23 13:38 Admit Provider: Gaurang Bonds
[2023-07-29] MEDS: dilTIAZem 5 MG/ML SDV 10 MG IV (10:06)
--- NOTE | 2023-07-29 10:08 | DI.CT.S_ITS ---
PROCEDURE: CT ANGIO CHEST PE PROTOCOL INDICATIONS: new onset afib TECHNIQUE: After the administration of intravenous contrast, 2 mm thick sections acquired from the pulmonary apices to the posterior costophrenic angles. 3-dimensional maximum intensity projection (MIP) coronal and sagittal reformats were then acquired through the thorax. For radiation dose reduction, the following was used: automated exposure control, adjustment of mA and/or kV according to patient size. COMPARISON: None. FINDINGS: Image quality: Diagnostic. Pulmonary arteries: Pulmonary arteries are normal in size, and demonstrate no intraluminal filling defects to suggest central pulmonary embolism. Lower Neck: No enlarged lymph nodes. Thyroid: No thyroid nodules which require sonographic follow up, per consensus guidelines. Axillae: No enlarged lymph nodes. Chest Wall: Unremarkable. Bones: Diffuse osteopenia with mild increased thoracic kyphosis.. Lungs and Pleura: No pneumothorax or pleural effusions. No consolidation or suspicious nodules. Heart: Heart size is normal. No pericardial effusion. Severe coronary artery calcifications. Question LAD stent. Thoracic Vessels: Upper limits of normal ascending aorta, measuring 4.0 cm. Mediastinum and [place]: No enlarged lymph nodes. Esophagus: No wall thickening. No hiatal hernia. Upper Abdomen: Visualized upper abdomen solid organs and bowel loops appear normal. IMPRESSION: No pulmonary embolus. No acute cardiopulmonary process. Severe coronary artery calcifications, question coronary artery stent. Borderline aneurysmal dilatation of the ascending aorta, measuring 4.0 cm. Dictated by: Juan Thompson M.D. on 07/29/2023 at 11:29 Approved by: Juan Thompson M.D. on 07/29/2023 at 11:33
[2023-07-29 10:21] LABS: Add Manual Diff / Slide Review NO; Basophils Absolute Auto 100 /uL (0-100); Basophils Percent Auto 0.7 % (0-2); Eosinophils Absolute Auto 100 /uL (0-450); Eosinophils Percent Auto 0.8 % (2-4); Hematocrit 35.7 % (36-46); Hemoglobin 11.2 g/dL (12.0-16.0); Lymphocytes Absolute Auto 2800 /uL (1100-4500); Mean Corpuscular HGB Conc 31.5 % (30-36); Mean Corpuscular Hemoglobin 25.9 PG (26-34); Mean Corpuscular Volume 82.2 fL (80-100); Monocytes Absolute Auto 800 /uL (0-900); Monocytes Percent Auto 7.9 % (3-14); Neutrophils Absolute Auto 6900 /uL (1500-7000); Neutrophils Percent Auto 64.6 % (50-75); Platelet Count 414 X10^3/uL (150-400); Red Blood Cell Count 4.34 X10^6/uL (4.0-5.2); Red Cell Distribution Width 17.8 % (11.6-14.8); White Blood Cell Count 10.8 X10^3/uL (4.5-11.0)
[2023-07-29 10:37] LABS: Alanine Aminotransferase 22 IU/L (<35); Albumin 4.5 g/dL (3.5-5.0); Albumin Globulin Ratio 1.3 (1.0-2.8); Alkaline Phosphatase 123 U/L (38-126); Aspartate Aminotransferase 139 IU/L (14-36); BUN Creatinine Ratio 21.7 (6-22); Bilirubin Total 0.9 mg/dL (0.2-1.3); Blood Urea Nitrogen 23 mg/dL (7-17); Calcium 10.5 mg/dL (8.4-10.2); Carbon Dioxide 20 mmol/L (22-32); Chloride 107 mmol/L (98-107); Creatine Kinase 120 U/L (30-135); Estimated Glomerular Filt Rate 53 mL/min (>60); Globulin 3.5 g/dL (1.7-4.1); Glucose 224 mg/dL (80-110); Lipase 72 U/L (23-300); Potassium 4.5 mmol/L (3.4-5.1); Sodium 138 mmol/L (137-145)
[2023-07-29 10:37] LABS: Bacteria Urine None Seen; RBC Urine None Seen (0-5/HPF); Squamous Epithelial Cell Urine 0-1 /HPF (0-5/HPF); Urine Volume 10mL (spun); WBC Urine 10-30/HPF (0-5/HPF)
[2023-07-29 10:43] LABS: Troponin I < 0.012 ng/mL (0.01-0.034)
[2023-07-29] MEDS: DILTIAZEM 125 MG/125 ML PIGGYBACK IV (10:43)
[2023-07-29 10:56] LABS: HEMOLYSIS 68 (0-50); NT-proBNP (BNP-Adult 18+) 4630 pg/mL (<450)
[2023-07-29 12:09] LABS: Troponin I < 0.012 ng/mL (0.01-0.034)
[2023-07-29] MEDS: cefTRIAXone 1,000 MG in SODIUM CHLORIDE 0.9% 100 ML 200 MG IV (13:08)
--- NOTE | 2023-07-29 13:34 | P.HP_ITS ---
History of Present Illness History of Present Illness Date Patient Seen: 07/29/23 Time Patient Seen: 13:00 Chief complaint: per pt urinary blockage, poss kidney stone Narrative: This is a 78 year old female with PMH of CAD (LAD stent x2), HTN, HLD, PAD with peripheral stenting 11/2022 and recently at [facility] last month as well, DM2 not on insulin therapy, chronic venous stasis who presented with dysuria for the last couple of days. She denies fever, chills, nausea, vomiting. Her abdominal pain feels like she cannot void. She denies chest pain, palpitations, shortness of breath. Her leg edema has not been any worse than normal. In the ER, patient was noted to be in afib with RVR. Rate in the 140s. She improved with diltiazem push, but became hypotensive on 5 of diltiazem infusion so this was stopped. BP improved. Ceftriaxone was given as UA was indicative of infection. Metoprolol 25 mg was given. Troponin was negative. Bedside cardiac ultrasound showed roughly normal EF, though quality was poor. Discussed with cardiology, recommended anticoagulation, and given BP drop continued metoprolol. If that isn't effective would do digoxin. [facility] Medical History Do not resuscitate Osteopenia Venous (peripheral) insufficiency Urinary incontinence Slow transit constipation Primary osteoarthritis involving multiple joints Cerebrovascular disease Peripheral arterial disease Chronic low back pain Stage 3a chronic kidney disease (CKD) Mixed hyperlipidemia Essential hypertension Polyneuropathy, unspecified Type 2 diabetes mellitus with polyneuropathy Carpal tunnel syndrome (~1999) Mumps (~1956) Chicken pox (~1955) Postmenopausal atrophic vaginitis Lower urinary tract symptoms (LUTS) Incontinence in female Foot ulcer due to secondary DM DDD (degenerative disc disease) CAD (coronary artery disease) Amputated toe of left foot Lumbar stenosis Surgical History Anesthesia History of knee surgery History of lumbar fusion S/P foot surgery, left Hx of tonsillectomy Status post cataract extraction of both eyes with insertion of intraocular lens Hx of heart artery stent S/P foot surgery, right Family History Mother Cancer Father Gangrene Social History household members: spouse Smoking Status: Never smoker alcohol intake: current Meds Home Medications and Allergies Home Medications Medication Instructions Recorded Confirmed Type metformin 500 mg tablet 1,000 mg PO BID 09/20/17 07/28/23 History metoprolol succinate 50 mg 50 mg PO QAM 09/20/17 07/28/23 History tablet,extended release 24 hr nitrofurantoin macrocrystal 50 mg 50 mg PO BEDTIME 02/25/21 07/28/23 History capsule ascorbic acid (vitamin C) [Super C 1 cap PO DAILY 06/11/22 07/28/23 History Complex] aspirin 81 mg tablet,delayed 162 mg PO QPM 06/11/22 07/28/23 History release cholecalciferol (vitamin D3) 125 125 mcg PO DAILY 06/11/22 07/28/23 History mcg (5,000 unit) capsule cranberry 1 cap PO DAILY PRN 06/11/22 07/28/23 History estradiol 10 mcg vaginal tablet 10 mcg vaginal 3XW 06/11/22 07/28/23 History multivitamin 1 tab PO DAILY 06/11/22 07/28/23 History omega-3 fatty acids 1,000 mg 1,000 mg PO DAILY 06/11/22 07/28/23 History capsule potassium gluconate 595 mg (99 mg) 595 mg PO DAILY 06/11/22 07/28/23 History tablet,extended release vitamin E 268 mg (400 unit) capsule 268 mg PO DAILY 06/11/22 07/28/23 History magnesium oxide 400 mg PO DAILY 10/01/22 07/28/23 History cyanocobalamin (vitamin B-12) 1,000 mcg PO DAILY 06/15/23 07/28/23 History 1,000 mcg capsule gabapentin 300 mg capsule 600 mg PO BEDTIME 06/15/23 07/28/23 History glipizide 5 mg tablet 5 mg PO DAILY 06/15/23 07/28/23 History mirabegron 50 mg tablet,extended 50 mg PO DAILY 06/15/23 07/28/23 History release 24 hr (Myrbetriq) zinc gluconate 50 mg PO DAILY 06/15/23 07/28/23 History acetaminophen 500 mg tablet 1,000 mg PO BEDTIME 07/28/23 07/28/23 History (Acetaminophen Extra Strength) atorvastatin 40 mg tablet 40 mg PO DAILY 07/28/23 07/28/23 History doxycycline monohydrate 100 mg 100 mg PO BID 07/28/23 07/28/23 History tablet gentamicin 0.1 % topical ointment 1 applic topical DAILY PRN 07/28/23 07/28/23 History silver sulfadiazine 1 % topical applic topical 07/28/23 07/28/23 History cream (SSD) ticagrelor 60 mg tablet (Brilinta) 60 mg PO BID 07/28/23 07/28/23 History Allergies Allergy/AdvReac Type Severity Reaction Status Date / Time nut - unspecified Allergy Severe Anaphylaxis Verified 07/28/23 13:08 feathers Allergy Mild Verified 07/28/23 13:08 ketorolac [KETOROLAC] Allergy Mild itching Verified 07/28/23 13:08 coconut Allergy Unknown Allergy Verified 07/28/23 13:08 testing - unknown reaction Penicillins Allergy Unknown Had Verified 07/28/23 13:08 allergy testing, told not to take, unknown reation empagliflozin AdvReac Severe Muscle Pain Verified 07/28/23 14:57 [From Jardiance] Review of Systems Review of Systems Narrative: All other systems reviewed with the patient and are negative unless otherwise stated. Exam Vital Signs (past 8 hours): - 07/29/23 08:56 07/29/23 08:56 07/29/23 09:00 Temperature 97.8 F Pulse Rate 76 81 Respiratory Rate 18 Blood Pressure 116/76 116/76 Pulse Oximetry 99 Oxygen Delivery Method Room Air 07/29/23 09:00 07/29/23 09:00 07/29/23 09:30 Temperature Pulse Rate 122 H 140 H Respiratory Rate 17 Blood Pressure 107/69 Pulse Oximetry 100 Oxygen Delivery Method 07/29/23 09:31 07/29/23 09:31 07/29/23 10:00 Temperature Pulse Rate 141 H 136 H Respiratory Rate 17 12 Blood Pressure 127/80 Pulse Oximetry 99 99 Oxygen Delivery Method 07/29/23 10:00 07/29/23 10:06 07/29/23 10:12 Temperature Pulse Rate 133 H 146 H Respiratory Rate 20 Blood Pressure 125/81 125/81 Pulse Oximetry 100 Oxygen Delivery Method 07/29/23 10:12 07/29/23 10:15 07/29/23 10:15 Temperature Pulse Rate 103 H Respiratory Rate 21 Blood Pressure 151/107 H 113/68 Pulse Oximetry 100 Oxygen Delivery Method Oxygen Delivery Method Room Air Narrative Exam Narrative: General:? Patient is well developed and well nourished, in no distress at this time. HEENT:? Normocephalic, atraumatic, extraocular muscles intact, oral pharynx is clear and mucous membranes are moist. Neck: supple and symmetric, trachea is midline, no cervical adenopathy. Negative for JVD Chest:? Normal AP diameter and contour without kyphoscoliosis, no tachypnea, equal chest rise bilaterally. Lungs:? CTA b/l no wheezing rhonchi or rales. Cardio:?tachycardic, irregularly irregular without m/r/g. Abdomen: S NT ND. No CVA tenderness. Musculoskeletal:? Muscle strength and tone are equal within normal limits, no deformity. Extremities: trace to 1+ b/l LE edema. Skin:? Pale,? Warm to touch Neuro:? Alert and orientated x3,? sensation to touch intact in all extremities, no gross deficits noted of cranial nerves. Psych:? Patient has a well-kept appearance, appropriate affect, mental status attitude thought context and judgment are appropriate for age. Objective ECG Impression: Atrial fibrillation with rapid ventricular response Abnormal QRS-T angle, consider primary T wave abnormality Nonspecific T wave changes Labs 07/29/23 09:16 07/29/23 09:16 Labs: Laboratory Results - last 24 hr 07/29/23 07/29/23 07/29/23 09:16 10:29 11:31 WBC 10.8 RBC 4.34 Hgb 11.2 L Hct 35.7 L MCV 82.2 MCH 25.9 L MCHC 31.5 RDW 17.8 H Plt Count 414 H Neut % (Auto) 64.6 Lymph % (Auto) 26.0 [place] % (Auto) 7.9 Eos % (Auto) 0.8 L Baso % (Auto) 0.7 Neut # (Auto) 6900 Lymph # (Auto) 2800 [place] # (Auto) 800 Eos # (Auto) 100 Baso # (Auto) 100 Sodium 138 Potassium 4.5 Chloride 107 Carbon Dioxide 20 L BUN 23 H Creatinine 1.06 H Estimated GFR 53 L BUN/Creatinine Ratio 21.7 Glucose 224 H Calcium 10.5 H Total Bilirubin 0.9 AST 139 H ALT 22 Alkaline Phosphatase 123 Total Creatine Kinase 120 Troponin I < 0.012 < 0.012 NT-Pro-B Natriuret Pep 4630 H Total Protein 8.0 Albumin 4.5 Globulin 3.5 Albumin/Globulin Ratio 1.3 Lipase 72 Urine RBC None seen Urine WBC 10-30/hpf H Ur Squamous Epith Cells 0-1 /hpf Urine Bacteria None seen Vol Urine Centrifuged 10ml (spun) Assessment & Plan Assessment & Plan narrative: 1. New diagnosis afib with RVR - discussed with cardiology, given BP drop with diltiazem, recommended titration with metoprolol. - given 25 mg metoprolol succinate in the ER, try to titrate with IR moving forward. - if metoprolol continues to be ineffective, recommended digoxin - started apixaban 5 mg BID - troponin negative, no chest pain or EKG changes, ACS highly unlikely. - echocardiogram ordered. 2. Acute cystitis - continue ceftriaxone, 1 g q24 hr for 3 days. - given rapid resolution of hypotension with cessation of diltiazem, do not suspect sepsis at this time. - follow up urine cultures. - check bladder scan to rule out urinary retention given presenting abdominal pain. # CAD, PAD with recent stenting - per outside records, patient is plavix non-responder. Continue asa, and brillinta with recent peripheral arterial stents placed 06/2023. - monitor careful for bleeding on triple therapy. # HTN - continue rate control agents at this time as discussed above. #HLD - continue home statin #DM2, not on insulin - diabetic diet, with sliding scale ordered. - A1c ordered - hold home metformin and glipizide. Code: DNR, surrogate is patient's spouse DVT: Lovenox daily I have utilized all available immediate resources to obtain, update, or review the patient's current medications. Dispo: patient admitted under observation status. Will attempt rate control, if echo performed is unremarkable and rate control achieved can discharge home. Additional history obtained via discussions with the ER provider. [id number] discussions contributed to the creation of the above assessment and plan. I have reviewed patient's presenting documentation, labs, and imaging personally.
[2023-07-29] MEDS: METOPROLOL ER 25 MG TABLET PO (13:53)
[2023-07-29] MEDS: METOPROLOL IR 25 MG TABLET PO (15:07)
[2023-07-29] MEDS: APIXABAN 5 MG TABLET PO ×2 (15:07→20:46)
--- NOTE | 2023-07-29 16:09 | DIET.CONS2 ---
Dietary Inpatient Consultation Note Admission Date: 07/29/2023 13:38 78 y F presents today with acute cystitis. Nutrition consulted for difficulty swallowing. FRANCHISE MANAGER consulted also. Will refer to FRANCHISE MANAGER diet reccs. PMH of diabetes. Will monitor PO intakes, BG, and need for DM educ as appropriate. Diet: 07/29/23 Dinner Carbohydrate Consistent Diet Diet Modifications: Carbohydrate level: Large (4 CHO) Reflex DM orders: No Food Texture: Level 7 - Regular Liquid Consistency: Level 0 - Thin Electronically Signed by: Susanne Alaniz 07/29/23 16:09 Clinical Dietitian [address] [id number]
[2023-07-29 16:17] LABS: MRSA (Nasal) PCR NOT DETECTED (Not Detect)
--- NOTE | 2023-07-29 16:35 | PC.NURSE ---
Addendum entered by Roxi Burns R.N. 07/29/23 18:59: around 1700 contacted provider to relay HR had been sustained 110s-120 with BP stable and pt asymptomatic. Pt family member brought wound care supplies and RN cleaned and redressed per significant other's instructions. Addendum entered by Roxi Burns R.N. 07/29/23 17:12: RN conducted medication reconciliation with patient and pt spouse and list provided, medications reconciliated as best as possible given some exact doses not known by pt and family member. Original Note: Pt arrived on unit HR Afib RVR high as sustained 150s, provider aware, metoprolol given and pt HR now 80s-100s at rest. Photos of LE ulcers taken. Pt voiding and does not feel bladder fullness/inability to void like pt felt when coming to ER. Pt states she hasn't had a BM for about a week, RN notified provider, no new order given. RN notified provider about ulcers and erythema and edema with LE. Provider gave no new orders/did not order wound care consult. Pt stated she had occaisional difficulty swallowing when eating, reflex order for INSEAMER and dietary. Pt family member to bring in home wound care supplies and RN to review wound care notes scanned into chart dated 07/19/23. VSS.
--- NOTE | 2023-07-29 16:44 | PC.NURSE ---
Right lateral ankle
[2023-07-29] MEDS: INSULIN LISPRO 100 UNIT/ML 3ML VIAL SUBCUT ×2 (17:27→20:44)
[2023-07-29] MEDS: DOCUSATE 100 MG CAPSULE PO (20:46)
[2023-07-29] MEDS: SENNOSIDES 8.6 MG TABLET 17.2 MG PO (20:46)
[2023-07-29] MEDS: METOPROLOL IR 50 MG TABLET PO (20:46)
[2023-07-29] MEDS: ATORVASTATIN 20 MG TABLET 40 MG PO (20:47)
[2023-07-29] MEDS: ACETAMINOPHEN 325 MG TABLET 650 MG PO (21:44)
[2023-07-30] VITALS (45 sets, daily range): BP systolic 88–113; BP diastolic 50–67; PULSE 18–191; RESP 10–42; TEMP 35.9–36.6; O2SAT 85–99
[2023-07-30 04:49] LABS: Add Manual Diff / Slide Review NO; Basophils Absolute Auto 100 /uL (0-100); Basophils Percent Auto 0.9 % (0-2); Eosinophils Absolute Auto 200 /uL (0-450); Hemoglobin 9.5 g/dL (12.0-16.0); Lymphocytes Absolute Auto 3900 /uL (1100-4500); Mean Corpuscular HGB Conc 32.6 % (30-36); Mean Corpuscular Hemoglobin 26.2 PG (26-34); Mean Corpuscular Volume 80.4 fL (80-100); Monocytes Absolute Auto 800 /uL (0-900); Monocytes Percent Auto 8.3 % (3-14); Neutrophils Absolute Auto 4600 /uL (1500-7000); Neutrophils Percent Auto 47.8 % (50-75); Platelet Count 414 X10^3/uL (150-400); Red Blood Cell Count 3.61 X10^6/uL (4.0-5.2); Red Cell Distribution Width 17.7 % (11.6-14.8); White Blood Cell Count 9.6 X10^3/uL (4.5-11.0)
[2023-07-30 05:06] LABS: Alanine Aminotransferase 14 IU/L (<35); Albumin 3.5 g/dL (3.5-5.0); Albumin Globulin Ratio 1.2 (1.0-2.8); Alkaline Phosphatase 107 U/L (38-126); Aspartate Aminotransferase 29 IU/L (14-36); Bilirubin Total 0.5 mg/dL (0.2-1.3); Blood Urea Nitrogen 21 mg/dL (7-17); Calcium 9.3 mg/dL (8.4-10.2); Carbon Dioxide 20 mmol/L (22-32); Chloride 111 mmol/L (98-107); Estimated Glomerular Filt Rate 54 mL/min (>60); Globulin 2.9 g/dL (1.7-4.1); Glucose 170 mg/dL (80-110); HEMOLYSIS < 15 (0-50); Magnesium 1.6 mg/dL (1.6-2.3); Potassium 4.1 mmol/L (3.4-5.1); Sodium 138 mmol/L (137-145); Total Protein 6.4 g/dL (6.3-8.2)
--- NOTE | 2023-07-30 08:00 | DI.ECHO.S_ITS ---
[facility] : : [address] : : [facility] : : [place], : : [place] [address] : : Phone: [phone] Echocardiogram Report + + :Name: NABIL HOOPER Study Date: 07/30/2023 Height: 64 in : :[facility] ReadingLocation: Weight: 180 lb : : Gender: Female BSA: 1.9 m2 : :: 1945 Age: 78 yrs BP: 100/62 mmHg: :Reason For Study: Atrial fibrillation : : Performed By: Delfina Coello : :Referring: MANSI BELL : + + Interpretation Summary The patient was in atrial fibrillation with heart rates between 96-103 bpm during the exam. Previously sinus tachycardia. The left ventricle is normal in size and wall thickness. Left ventricular ejection fraction is estimated to be 60 +/- 5%. The right ventricle is normal in size and function. The aortic valve is moderately calcified. There is mildly reduced leaflet mobility. The peak aortic velocity is 1.79 m/sec. The aortic valve mean gradient is 7.1 mmHg. The peak aortic velocity on the previous exam was 2.26 m/sec. There is no hemodynamically significant valvular aortic stenosis. Mild atherosclerotic plaque(s) in the aortic arch. Procedure: A two-dimensional transthoracic echocardiogram with color flow and Doppler was performed. The study quality was technically adequate. Comparison is made with the echocardiogram of 08-09-22. The patient was in atrial fibrillation with heart rates between 96-103 bpm during the exam. Left Ventricle: The left ventricle is normal in size and wall thickness. There is no thrombus. Left ventricular ejection fraction is estimated to be 60 +/- 5%. There are no focal wall motion abnormalities. Diastolic function could not be accurately assessed due to atrial fibrillation. Right Ventricle: The right ventricle is normal in size and function. Atria: The left atrium is mildly dilated. The left atrium has mildly increased in size since the prior echo exam. Right atrial size is normal. The interatrial septum grossly appears intact with no obvious evidence for an atrial septal defect. Mitral Valve: The mitral valve leaflets appear mildly thickened, but open well. There is mild to moderate mitral annular calcification. There is trace mitral regurgitation. Aortic Valve: The aortic valve is trileaflet. The aortic valve is moderately calcified. There is mildly reduced leaflet mobility. The peak aortic velocity is 1.79 m/sec. The aortic valve mean gradient is 7.1 mmHg. The peak aortic velocity on the previous exam was 2.26 m/sec. There is no hemodynamically significant valvular aortic stenosis. There is trace aortic regurgitation. Tricuspid Valve: The tricuspid valve leaflets are thin and pliable. There is trace tricuspid regurgitation. The right ventricular systolic pressure is estimated to be at least 20 mmHg based on an estimated right atrial pressure of 3 mm Hg. Pulmonic Valve: The pulmonic valve is not well seen, but is grossly normal. There is no pulmonic valvular regurgitation. Great Vessels: The aortic root is normal size. The dimensions of the ascending aorta are normal. The aortic arch is normal in size. Mild atherosclerotic plaque(s) in the aortic arch. The IVC is of normal diameter and collapses greater than 50% with a sniff. This suggests a low right atrial pressure of 3 mm Hg. Pericardium/ Pleura There is no pericardial effusion. There is an anterior echo-free space consistent with a fat pad. There is no pleural effusion. MMode/2D Measurements & Calculations LVIDd: 4.2 cm AoV Openin.4 cm LVIDs: 2.8 cm LVOT diam: 1.7 cm IVSd: 0.73 cm Ao root diam: 3.2 cm LVPWd: 0.79 cm asc Aorta Diam: 2.4 cm LV matta. diameter/BSA (cm/m^2): 2.3 Ao Arch Diam (Prox Trans): 3.1 cm LV sys. diameter/BSA (cm/m^2): 1.5 FS: 33.5 % EPSS: 0.43 cm LA A2 area: 20.7 cm2 RA long axis: 4.4 cm LA A4 area: 22.6 cm2 RA area: 12.5 cm2 LA length (vol): 5.7 cm RA vol: 29.9 ml LA vol: 70.4 ml RA : 16.0 ml/m2 LA vol index: 37.6 ml/m2 RVD1 (basal): 1.9 cm IVC diam: 1.6 cm TAPSE: 1.2 cm Doppler Measurements & Calculations Ao V2 max: 179.0 cm/sec LVOT Max Bright: 86.7 cm/sec Ao V2 mean: 126.4 cm/sec LV V1 max P.0 mmHg Ao V2 VTI: 35.7 cm LV V1 VTI: 14.5 cm Ao max P.8 mmHg Ao mean P.1 mmHg JALEN(I,D): 0.90 cm2 Med Peak E' Bright: 3.5 cm/sec JALEN(V,D): 1.1 cm2 JALEN indexed to BSA (cm^2/m^2): 0.48 sev ratio: 0.41 MV mean P.9 mmHg TR max bright: 208.8 cm/sec MVA(VTI): 1.7 cm2 TR max P.4 mmHg PA V2 max: 72.7 cm/sec MV V2 mean: 58.6 cm/sec PA V2 mean: 46.7 cm/sec MV V2 VTI: 18.5 cm PA mean P.0 mmHg PA pr(Accel): 20.8 mmHg SV(LVOT): 32.0 ml Reading Physician:11:45 AM
[2023-07-30] MEDS: INSULIN LISPRO 100 UNIT/ML 3ML VIAL SUBCUT ×4 (08:03→20:55)
[2023-07-30] MEDS: MAGNESIUM SULFATE 2 GM/50 ML PIGGYBACK IV (08:13)
[2023-07-30] MEDS: ASPIRIN EC 81 MG TABLET PO (08:55)
[2023-07-30] MEDS: APIXABAN 5 MG TABLET PO ×2 (08:56→20:56)
[2023-07-30] MEDS: METOPROLOL IR 50 MG TABLET PO (08:56)
[2023-07-30] MEDS: DOCUSATE 100 MG CAPSULE PO (08:56)
--- NOTE | 2023-07-30 10:40 | ST.IPCSEOM ---
Visit Care Team Role Provider Type Anthony Gonzalez MD Family Provider Physician Primary Care Provider Specialty: Internal Medicine Address: [address] [place] [address], [address] Email: [email or web address] Serina Landeros DO Emergency Provider Physician Referring Provider Specialty: Emergency Medicine Address: [address] [place] [address], [address] Email: [email or web address] Gaurang Bonds DO Admit Provider Physician Attending Provider Specialty: Internal Medicine Address: [address] [place] [address], [id number] Email: [email or web address] Past Medical History (Last Reviewed 07/29/23 @ 14:58 by Gaurang Bonds DO) Amputated toe of left foot (Medical) left 2nd toe CAD (coronary artery disease) (Medical) Carpal tunnel syndrome (Medical ~1999) Cerebrovascular disease (Medical) Chicken pox (Medical ~1954) Chronic low back pain (Medical) DDD (degenerative disc disease) (Medical) Do not resuscitate (Medical) Essential hypertension (Medical) Foot ulcer due to secondary DM (Medical) right foot, recurrent, chronic, non-healing, surgery w/skin graft, improved Incontinence in female (Medical) Lower urinary tract symptoms (LUTS) (Medical) Lumbar stenosis (Medical) Mixed hyperlipidemia (Medical) Mumps (Medical ~1955) Osteopenia (Medical) Peripheral arterial disease (Medical) Polyneuropathy, unspecified (Medical) Postmenopausal atrophic vaginitis (Medical) Primary osteoarthritis involving multiple joints (Medical) Slow transit constipation (Medical) Stage 3a chronic kidney disease (CKD) (Medical) Type 2 diabetes mellitus with polyneuropathy (Medical) Urinary incontinence (Medical) Venous (peripheral) insufficiency (Medical) Speech-Language Pathology Swallow Evaluation FLEET MAINTENANCE MANAGER Clinical Swallow Evaluation Start: 07/30/23 10:30 Freq: Status: Active Protocol: Document 07/30/23 10:30 MG (Rec: 07/30/23 10:40 MG [id number]) Clinical Swallow Evaluation Session Time Visit Start Time 10:05 Visit Stop Time 10:25 Total Visit Minutes 20 Visit Information Visit Number 1 Setting Assessment Location Acute Care Visit Type Note Type Initial evaluation Patient Information Identification Type Name,Wristband History Per H&P: This is a 78 year old female with PMH of CAD (LAD stent x2), HTN, HLD, PAD with peripheral stenting 11/2022 and recently at [facility] last month as well, DM2 not on insulin therapy, chronic venous stasis who presented with dysuria for the last couple of days. She denies fever, chills, nausea, vomiting. Her abdominal pain feels like she cannot void. She denies chest pain, palpitations, shortness of breath. Her leg edema has not been any worse than normal. In the ER, patient was noted to be in afib with RVR. Rate in the 140s. She improved with diltiazem push, but became hypotensive on 5 of diltiazem infusion so this was stopped. BP improved. Ceftriaxone was given as UA was indicative of infection. Metoprolol 25 mg was given. Troponin was negative. Bedside cardiac ultrasound showed roughly normal EF, though quality was poor. Subjective Observations Pt was upright in bed with spouse near bedside. The pt was just starting to eat breakfast. Pt agreeable to FLEET MAINTENANCE MANAGER entering the room to evaluate . Reported by Patient/Caregiver Current Diet Regular (IDDSI 7) Baseline Feeding Method Independent in self-feeding The IDDSI Framework Protocol: IDDSI.1 Objective Assessment Mental Status Alert,Responsive,Cooperative Oral Integrity WFL Dentition Within normal limits Lip Function Within normal limits Observation of Lips at Rest Symmetrical Pucker Within normal limits Lip Retraction Within normal limits Alternating Pucker/Lip Retraction Within normal limits Tongue Function Within normal limits Observations of Tongue at Rest Within normal limits Tongue Protrusion Within normal limits Tongue Retraction Within normal limits Tongue Lateralization Within normal limits Jaw Function Within normal limits Observation of Jaw at Rest Within normal limits Jaw Opening Within normal limits Jaw Closing Within normal limits Jaw Lateralization Within normal limits Jaw Protrusion Within normal limits Jaw Retraction Within normal limits Hard/Soft Palate Function Within normal limits Observations of Hard/Soft Palate Within normal limits Nasality Within normal limits Respiratory Sufficiency Within normal limits Comment OME resulted in adequate movement, range of motion, and strength of the oral mechanism. No overt weakness or incoordniation noted at this time. Food and Liquid Trials Position During Assessment Upright (90 degrees) Liquids Trialed Thin (IDDSI 0) Solid Trials Regular (IDDSI 7) Administration Type Straw,Self-feeding Oral Impairment Within functional limits Oral Phase Comments No anteiror spillage noted. Solids were masticated effectively and timely. No oral residue noted. Pharyngeal Impairment Within functional limits Pharyngeal Phase Comments Laryngeal palpation indicated adequate hyolaryngeal movement and anterior hyoid excursion. No overt s/sx of aspiration on all trials of solids/ liquids. Pt did note that at times some things feel like they are harder to swallow at home. FLEET MAINTENANCE MANAGER discussed strategies such as small bites/sips, liquid rinse to clear pharyngeal cavity, and effortful swallowing. Pt agreeable to utilize these strategies if needed. Fatigue/Endurance Endurance WNL Strategies Attempted Effortful swallow,Other Response/Comments Pt agreeable to using strategies discussed when needed. The IDDSI Framework Protocol: IDDSI.1 Findings Swallowing Function Within functional limits Severity of Swallow Impairment Within functional limits Recommendations Instrumental Assessment No Swallowing Treatment No Other Recommendations Pt is not in need to speech therapy at this time. If concerns arise, please consult as needed. Education Patient/Caregiver Education Described results of evaluation,Patient expressed understanding of evaluation, Patient expressed agreement with goals & treatment plans, Family/caregivers expressed understanding of evaluation, Family/caregivers expressed agreement with goals & treatment plans,Patient expressed understanding of safety precautions,Patient expressed understanding of feeding recommendations,Family /caregivers expressed understanding of safety precautions,Family/caregivers expressed understanding of feeding recommendations
[2023-07-30] MEDS: PHENAZOPYRIDINE 100 MG TABLET 200 MG PO ×3 (11:17→20:57)
[2023-07-30] MEDS: DIGOXIN 500 MCG/2 ML AMPUL 250 MCG IV (11:18)
--- NOTE | 2023-07-30 12:31 | PM.PN.1 ---
Subjective <Austen Castrejon - Last Filed: 07/30/23 12:43> Subjective Interval history: Razia Carias is a 78 YO F here for Cystitis and A-fib with RVR. This morning she reports less frequent need to urinate, but is still experiencing urgency and burning with urination. She was recently diagnosed with a-fib but is asymptomatic. She reports several episodes of UTI within the past year after her hysterectomy. She has been given antibiotics on several occasions with little to no symptom improvement. <Mode Hawley, - Last Filed: 07/30/23 12:57> Subjective Interval history: Razia Carias is a 78 YO F here for Cystitis and A-fib with RVR. This morning she reports less frequent need to urinate, but is still experiencing mild urgency and burning with urination. She reports several episodes of UTI within the past year after her hysterectomy. She has been given antibiotics on several occasions with little to no symptom improvement. Still in A-fib with intermittent RVR to 120-130's despite metoprolol and BP soft at 100/60. Exam <Austen Castrejon - Last Filed: 07/30/23 12:43> Vital Signs (past 8 hours): - 07/30/23 08:00 07/30/23 08:00 07/30/23 08:00 Temperature 97.6 F Pulse Rate 105 H Respiratory Rate 17 Blood Pressure 100/62 Pulse Oximetry 99 98 Oxygen Delivery Method Room Air Room Air Oxygen Flow Rate 0 07/30/23 11:18 07/30/23 12:00 Temperature 96.6 F L Pulse Rate 93 H 18 L Respiratory Rate 20 Blood Pressure 100/62 93/50 L Pulse Oximetry 96 Oxygen Delivery Method Oxygen Flow Rate 0 Oxygen Delivery Method Room Air Oxygen Flow Rate 0 Narrative Exam Narrative: General:? Patient is well developed and well nourished, in no distress at this time. HEENT:? Normocephalic, atraumatic, extraocular muscles intact, oral pharynx is clear and mucous membranes are moist. Neck: supple and symmetric, trachea is midline, no cervical adenopathy. Negative for JVD Chest:? Normal AP diameter and contour without kyphoscoliosis, no tachypnea, equal chest rise bilaterally. Lungs:? CTA b/l no wheezing rhonchi or rales. Cardio:?tachycardic, irregularly irregular without m/r/g. Abdomen: S NT ND. No CVA tenderness. Musculoskeletal:? Muscle strength and tone are equal within normal limits, no deformity. Extremities: trace to 1+ b/l LE edema. Skin:? Pale,? Warm to touch Neuro:? Alert and orientated x3,? sensation to touch intact in all extremities, no gross deficits noted of cranial nerves. Psych:? Patient has a well-kept appearance, appropriate affect, mental status attitude thought context and judgment are appropriate for age. Objective <[facility] - Last Filed: 07/30/23 12:43> Labs 07/30/23 04:20 07/30/23 04:20 Labs: Laboratory Results - last 24 hr 07/29/23 07/30/23 15:00 04:20 WBC 9.6 RBC 3.61 L Hgb 9.5 L Hct 29.0 L MCV 80.4 MCH 26.2 MCHC 32.6 RDW 17.7 H Plt Count 414 H Neut % (Auto) 47.8 L Lymph % (Auto) 41.0 H [place] % (Auto) 8.3 Eos % (Auto) 2.0 Baso % (Auto) 0.9 Neut # (Auto) 4600 Lymph # (Auto) 3900 [place] # (Auto) 800 Eos # (Auto) 200 Baso # (Auto) 100 Sodium 138 Potassium 4.1 Chloride 111 H Carbon Dioxide 20 L BUN 21 H Creatinine 1.05 H Estimated GFR 54 L BUN/Creatinine Ratio 20.0 Glucose 170 H Calcium 9.3 Magnesium 1.6 Total Bilirubin 0.5 AST 29 ALT 14 Alkaline Phosphatase 107 Total Protein 6.4 Albumin 3.5 Globulin 2.9 Albumin/Globulin Ratio 1.2 Nasal Screen MRSA (PCR) Not detected PFSH <[facility] Filed: 07/30/23 12:43> Medical History Do not resuscitate Osteopenia Venous (peripheral) insufficiency Urinary incontinence Slow transit constipation Primary osteoarthritis involving multiple joints Cerebrovascular disease Peripheral arterial disease Chronic low back pain Stage 3a chronic kidney disease (CKD) Mixed hyperlipidemia Essential hypertension Polyneuropathy, unspecified Type 2 diabetes mellitus with polyneuropathy Carpal tunnel syndrome (~1999) Mumps (~1955) Chicken pox (~1955) Postmenopausal atrophic vaginitis Lower urinary tract symptoms (LUTS) Incontinence in female Foot ulcer due to secondary DM DDD (degenerative disc disease) CAD (coronary artery disease) Amputated toe of left foot Lumbar stenosis Surgical History Anesthesia History of knee surgery History of lumbar fusion S/P foot surgery, left Hx of tonsillectomy Status post cataract extraction of both eyes with insertion of intraocular lens Hx of heart artery stent S/P foot surgery, right Family History Mother Cancer Father Gangrene Social History household members: spouse Smoking Status: Never smoker alcohol intake: current Assessment & Plan <Austen Castrejon - Last Filed: 07/30/23 12:43> Assessment & Plan narrative: 1. New diagnosis afib with RVR - discussed with cardiology, given BP drop with diltiazem, recommended titration with metoprolol. - given 25 mg metoprolol succinate in the ER, BP dropped this morning. - started digoxin .25 mg - started apixaban 5 mg BID - troponin negative, no chest pain or EKG changes, ACS highly unlikely. - echocardiogram showed aortic valve calcifications 2. Acute cystitis - continue ceftriaxone, 1 g q24 hr for 3 days. - given rapid resolution of hypotension with cessation of diltiazem, do not suspect sepsis at this time. - urine cultures show no growth # CAD, PAD with recent stenting - per outside records, patient is plavix non-responder. Continue asa, and brillinta with recent peripheral arterial stents placed 06/2023. - monitor careful for bleeding on triple therapy. # HTN - continue rate control agents at this time as discussed above. #HLD - continue home statin #DM2, not on insulin - diabetic diet, with sliding scale ordered. - A1c ordered - hold home metformin and glipizide. Code: DNR, surrogate is patient's spouse DVT: Lovenox daily I have utilized all available immediate resources to obtain, update, or review the patient's current medications. Dispo: patient admitted under observation status. Will attempt rate control, if echo performed is unremarkable and rate control achieved can discharge home. Additional history obtained via discussions with the ER provider. [id number] discussions contributed to the creation of the above assessment and plan. I have reviewed patient's presenting documentation, labs, and imaging personally. <Mode Hawley DO - Last Filed: 07/30/23 12:57> Assessment & Plan narrative: # New diagnosis afib with RVR - discussed with cardiology, given BP drop with diltiazem, recommended titration with metoprolol. - continue metoprolol tart 50mg BID, cannot raise higher due to soft BP - started IV digoxin 0.25 mg load, with transition to po dig - continue apixaban 5 mg BID - troponin negative, no chest pain or EKG changes, ACS highly unlikely. - echocardiogram showed mod calcified AV, EF 60-65%, mildly dilated LA # Acute cystitis ruled out - continue ceftriaxone, 1 g q24 hr for 3 days. - urine cultures show no growth - start pyridium for dysuria # CAD, PAD with recent stenting - per outside records, patient is plavix non-responder. Continue asa, and brillinta with recent peripheral arterial stents placed 06/2023. - monitor careful for bleeding on triple therapy. # HTN - continue rate control agents at this time as discussed above. # HLD - continue home statin # DM2, not on insulin - diabetic diet, with sliding scale ordered. - A1c 10.5%, should talk with PCP about starting metformin - hold home metformin and glipizide. Code: DNR, surrogate is patient's spouse DVT: Agustín I have utilized all available immediate resources to obtain, update, or review the patient's current medications. Dispo: Home on 07/30 once rate controlled. Quality <Austen Castrejon - Last Filed: 07/30/23 12:43> VTE Deep Vein Thrombosis/Pulmonary Embolism Present on Admission: No
[2023-07-30] MEDS: cefTRIAXone 1,000 MG in SODIUM CHLORIDE 0.9% 100 ML 200 MG IV (12:33)
--- NOTE | 2023-07-30 15:19 | CM.DANOTE ---
Initial DCP Assessment Visit Note Reviewed EMR and team rounds for pt's medical status and initial anticipated home d/c needs. Met with pt/spouse at bedside to introduce self and role, pt was found sitting upright in bed, alert/oriented, and able to participate in discussion re: home situation and preferences for d/c. Once she is medically cleared her will transport her back home. Payor: Medicare PCP: Dr. Gonzalez Pt is a 78 year-old F who presented to the ED last evening with c/o pain during urination. ED eval found pt to be in afib with RVR and a UTI. She was started on IV ABO's, and placed in OBS for continued tx/evaluation. Pt and spouse shared that they live in a 1-story house with no stairs, she ambulates with a walker at baseline, has bedside commode, shower seats, and raised toilet at home as well. DCP will continue to follow and assist with any further evolving recommendations and needs during this hospital stay. D/C likely Tuesday. Discharge Planning/Care Management CM Discharge Assessment Start: 07/30/23 15:04 Freq: Status: Active Protocol: Document 07/30/23 15:04 DPL (Rec: 07/30/23 15:19 DPL [id number]) Discharge Planning Assessment Assigned [employer] Commercial [employer]person WATSON [place] Advance Directives? Yes: PACO Advance Directives on File No: pt will bring in directives History Provided By Patient,Significant Other, Medical Record Has Patient been admitted in last 30 No days? Comment Pt was admitted at [facility] in [place] for 2-days and d /c'd on the following surgery. Prior Living Arrangements House Household Members spouse Type of transporation used prior to Relies on Others admit Independent with ADL's No: modified independent with spouse's assistance Needs Assistance With Managing Medications,Home Chores / Shopping DME Already Rented / Owned Bath Bench,Elevated Toilet Seat,FWW / Walker,Crutches Comment No anticipated home d/c needs identified at this time. Barriers to Discharge No Comment Resides in single level home in [place], [place]. Transportation Arrangement Family Referrals Initiated None needed Whiteboard Updated in Patient Room with Yes name and ext. # of [employer] Commercial Salesperson Review Status In Process Please Provide Date Initial DC 07/30/23 Assessment Was Performed
[2023-07-30] MEDS: DIGOXIN 0.125 MG TABLET PO (16:56)
--- NOTE | 2023-07-30 18:34 | PC.NURSE ---
Pedal pulses not palpable, dopplered on the R but not on the L, dorsales pedis dopplered bilaterally. feet warm and cap refull <2sec.
[2023-07-30] MEDS: METOPROLOL IR 50 MG TABLET 25 MG PO (20:56)
[2023-07-30] MEDS: ATORVASTATIN 20 MG TABLET 40 MG PO (20:57)
[2023-07-31 00:06] VITALS: BP 109/59; PULSE 82; O2SAT 97
[2023-07-31 04:49] VITALS: PULSE 76; O2SAT 99
[2023-07-31 04:50] VITALS: BP 120/65; PULSE 78; O2SAT 100
[2023-07-31] MEDS: ACETAMINOPHEN 325 MG TABLET 650 MG PO (04:50)
[2023-07-31 04:52] LABS: Add Manual Diff / Slide Review NO; Basophils Absolute Auto 200 /uL (0-100); Basophils Percent Auto 1.4 % (0-2); Eosinophils Absolute Auto 300 /uL (0-450); Eosinophils Percent Auto 3.1 % (2-4); Hematocrit 31.4 % (36-46); Hemoglobin 10.1 g/dL (12.0-16.0); Lymphocytes Absolute Auto 2700 /uL (1100-4500); Lymphocytes Percent Auto 24.3 % (25-40); Mean Corpuscular HGB Conc 32.1 % (30-36); Mean Corpuscular Hemoglobin 25.7 PG (26-34); Monocytes Absolute Auto 900 /uL (0-900); Monocytes Percent Auto 7.9 % (3-14); Neutrophils Absolute Auto 6900 /uL (1500-7000); Neutrophils Percent Auto 63.3 % (50-75); Platelet Count 423 X10^3/uL (150-400); Red Blood Cell Count 3.93 X10^6/uL (4.0-5.2); Red Cell Distribution Width 18.2 % (11.6-14.8); White Blood Cell Count 10.9 X10^3/uL (4.5-11.0)
[2023-07-31 05:10] LABS: Alanine Aminotransferase 16 IU/L (<35); Albumin 3.6 g/dL (3.5-5.0); Albumin Globulin Ratio 1.2 (1.0-2.8); Alkaline Phosphatase 114 U/L (38-126); Aspartate Aminotransferase 27 IU/L (14-36); BUN Creatinine Ratio 21.8 (6-22); Bilirubin Total 0.6 mg/dL (0.2-1.3); Blood Urea Nitrogen 24 mg/dL (7-17); Calcium 9.3 mg/dL (8.4-10.2); Carbon Dioxide 17 mmol/L (22-32); Chloride 111 mmol/L (98-107); Estimated Glomerular Filt Rate 51 mL/min (>60); Globulin 3.1 g/dL (1.7-4.1); Glucose 246 mg/dL (80-110); HEMOLYSIS < 15 (0-50); Potassium 4.1 mmol/L (3.4-5.1); Sodium 138 mmol/L (137-145); Total Protein 6.7 g/dL (6.3-8.2)
[2023-07-31 05:53] VITALS: BP 109/59; PULSE 80; RESP 17; TEMP 35.9; O2SAT 94
[2023-07-31] MEDS: INSULIN LISPRO 100 UNIT/ML 3ML VIAL SUBCUT (07:57)
[2023-07-31] MEDS: APIXABAN 5 MG TABLET PO (08:18)
[2023-07-31] MEDS: PHENAZOPYRIDINE 100 MG TABLET 200 MG PO (08:18)
[2023-07-31] MEDS: ASPIRIN EC 81 MG TABLET PO (08:19)
[2023-07-31] MEDS: METOPROLOL IR 50 MG TABLET 25 MG PO (08:19)
[2023-07-31 08:24] VITALS: BP 113/70; PULSE 78; RESP 16; TEMP 36.2; O2SAT 100
--- NOTE | 2023-07-31 10:27 | CM.DPC ---
DCP Cont. Reviewed EMR and team rounds for status updates. Pt has improved, is no longer in RVR, and is ready to d/c with oral ABO's. Her will transport her home. No further DCP needs indicated at this time.
--- NOTE | 2023-07-31 10:32 | PM.DS.1 ---
[facility] of Present Illness [facility] 07/31/23 10:42> History of Present Illness Chief complaint: per pt urinary blockage, poss kidney stone Narrative: This is a 78 year old female with PMH of CAD (LAD stent x2), HTN, HLD, PAD with peripheral stenting 11/2022 and recently at [facility] last month as well, DM2 not on insulin therapy, chronic venous stasis who presented with dysuria for the last couple of days. She denies fever, chills, nausea, vomiting. Her abdominal pain feels like she cannot void. She denies chest pain, palpitations, shortness of breath. Her leg edema has not been any worse than normal. In the ER, patient was noted to be in afib with RVR. Rate in the 140s. She improved with diltiazem push, but became hypotensive on 5 of diltiazem infusion so this was stopped. BP improved. Ceftriaxone was given as UA was indicative of infection. Metoprolol 25 mg was given. Troponin was negative. Bedside cardiac ultrasound showed roughly normal EF, though quality was poor. Discussed with cardiology, recommended anticoagulation, and given BP drop continued metoprolol. If that isn't effective would do digoxin. Discharge Providers <Austen Mittal [employer] [facility] Filed: 07/31/23 10:42> Provider Date of admission: 07/29/23 13:38 Discharge Date: 07/31/23 Primary care physician: Anthony Gonzalez MD Consults: 07/29/23 15:32 Consult to Dietitian, Adult Routine Comment: Reason For Exam: difficulty swallowing Consult to Speech Therapy Evaluate & Treat Comment: Physician Instructions: Evaluate and treat Discharge provider: Austen Castrejon Summary <kaushal Mittal [employer] [facility] Filed: 07/31/23 10:42> Hospital Course Discharge Diagnosis: 1. New diagnosis afib with RVR - discussed with cardiology, given BP drop with diltiazem, recommended titration with metoprolol. - given 25 mg metoprolol succinate in the ER, BP dropped this morning. - started digoxin .25 mg - started apixaban 5 mg BID - troponin negative, no chest pain or EKG changes, ACS highly unlikely. - echocardiogram showed aortic valve calcifications 2. Acute cystitis - continue ceftriaxone, 1 g q24 hr for 3 days. - given rapid resolution of hypotension with cessation of diltiazem, do not suspect sepsis at this time. - urine cultures show no growth # CAD, PAD with recent stenting - per outside records, patient is plavix non-responder. Continue asa, and brillinta with recent peripheral arterial stents placed 06/2023. - monitor careful for bleeding on triple therapy. # HTN - continue rate control agents at this time as discussed above. #HLD - continue home statin #DM2, not on insulin - diabetic diet, with sliding scale ordered. - A1c ordered - hold home metformin and glipizide. Hospital Course: Admitted for a UTI and urinary retention after recent surgery mechanical thrombolysis of popliteal artery. We catheterized her and got 200 cc out. Her UTI symptoms persisted and she was pt on ceftriaxone. During her stay she went into A-fib with RVR. Metoprolol did not convert her to NSR and her BP was decreasing so she was put on digoxin . This put her back into NSR and she remains asymptomatic. <Mode Hawley, - Last Filed: 07/31/23 11:52> Hospital Course Discharge Diagnosis: # New diagnosis afib with RVR - discussed with cardiology, given BP drop with diltiazem, recommended titration with metoprolol. - continue metoprolol tart 25mg BID, cannot raise higher due to soft BP - started IV digoxin 0.25 mg load, with transition to po dig - continue apixaban 5 mg BID - troponin negative, no chest pain or EKG changes, ACS highly unlikely. - echocardiogram showed mod calcified AV, EF 60-65%, mildly dilated LA - with metop 25 BID and digoxin her HR remained in 80's, discharged on metop XL 50 daily and 125mcg dig daily # Acute cystitis ruled out - continue ceftriaxone, 1 g q24 hr for 3 days. - urine cultures show no growth - start pyridium for dysuria # CAD, PAD with recent stenting - per outside records, patient is plavix non-responder. Continue asa, and brillinta with recent peripheral arterial stents placed 06/2023. - monitor careful for bleeding on triple therapy. # HTN - continue rate control agents at this time as discussed above. # HLD - continue home statin # DM2, not on insulin - diabetic diet, with sliding scale ordered. - A1c 10.5%, should talk with PCP about starting insulin - hold home metformin and glipizide. Hospital Course: Admitted for a UTI and urinary retention after recent surgery for mechanical thrombolysis of popliteal artery. We catheterized her and got 200 cc out. Her UTI symptoms persisted and she was pt on ceftriaxone. Was then able to void normally. During her stay she went into A-fib with RVR. Dilt drip did not control rate and her BP was decreasing so she was put on metoprolol and digoxin . Her HR is now controlled in 80's so metop XL plus digoxin was continued on discharge. Also started eliquis. With f/up with gettering operator Dr. Campos and urology for ongoing dysuria issues. Exam <Austen Mittal - Last Filed: 07/31/23 10:42> Vital Signs (past 8 hours): - 07/31/23 04:49 07/31/23 04:50 07/31/23 04:50 Temperature Pulse Rate 76 78 Respiratory Rate Blood Pressure 120/65 Pulse Oximetry 99 100 Oxygen Delivery Method Oxygen Flow Rate 07/31/23 05:53 07/31/23 08:00 07/31/23 08:00 Temperature 96.7 F L Pulse Rate 80 Respiratory Rate 17 Blood Pressure 109/59 L Pulse Oximetry 94 Oxygen Delivery Method Room Air Room Air Oxygen Flow Rate 5 07/31/23 08:24 Temperature 97.2 F L Pulse Rate 78 Respiratory Rate 16 Blood Pressure 113/70 Pulse Oximetry 100 Oxygen Delivery Method Oxygen Flow Rate Oxygen Delivery Method Room Air Oxygen Flow Rate 5 Narrative Exam Narrative: General:? Patient is well developed and well nourished, in no distress at this time. HEENT:? Normocephalic, atraumatic, extraocular muscles intact, oral pharynx is clear and mucous membranes are moist. Neck: supple and symmetric, trachea is midline, no cervical adenopathy. Negative for JVD Chest:? Normal AP diameter and contour without kyphoscoliosis, no tachypnea, equal chest rise bilaterally. Lungs:? CTA b/l no wheezing rhonchi or rales. Cardio:?tachycardic, irregularly irregular without m/r/g. Abdomen: S NT ND. No CVA tenderness. Musculoskeletal:? Muscle strength and tone are equal within normal limits, no deformity. Extremities: trace to 1+ b/l LE edema. Skin:? Pale,? Warm to touch Neuro:? Alert and orientated x3,? sensation to touch intact in all extremities, no gross deficits noted of cranial nerves. Psych:? Patient has a well-kept appearance, appropriate affect, mental status attitude thought context and judgment are appropriate for age. Objective <Austen Castrejon - Last Filed: 07/31/23 10:42> Labs 07/31/23 04:30 07/31/23 04:30 Labs: Laboratory Results - last 24 hr 07/31/23 04:30 WBC 10.9 RBC 3.93 L Hgb 10.1 L Hct 31.4 L MCV 80.0 MCH 25.7 L MCHC 32.1 RDW 18.2 H Plt Count 423 H Neut % (Auto) 63.3 Lymph % (Auto) 24.3 L [place] % (Auto) 7.9 Eos % (Auto) 3.1 Baso % (Auto) 1.4 Neut # (Auto) 6900 Lymph # (Auto) 2700 [place] # (Auto) 900 Eos # (Auto) 300 Baso # (Auto) 200 H Sodium 138 Potassium 4.1 Chloride 111 H Carbon Dioxide 17 L BUN 24 H Creatinine 1.10 H Estimated GFR 51 L BUN/Creatinine Ratio 21.8 Glucose 246 H Calcium 9.3 Magnesium 2.0 Total Bilirubin 0.6 AST 27 ALT 16 Alkaline Phosphatase 114 Total Protein 6.7 Albumin 3.6 Globulin 3.1 Albumin/Globulin Ratio 1.2 PFSH <Austen Castrejon - Last Filed: 07/31/23 10:42> Medical History Do not resuscitate Osteopenia Venous (peripheral) insufficiency Urinary incontinence Slow transit constipation Primary osteoarthritis involving multiple joints Cerebrovascular disease Peripheral arterial disease Chronic low back pain Stage 3a chronic kidney disease (CKD) Mixed hyperlipidemia Essential hypertension Polyneuropathy, unspecified Type 2 diabetes mellitus with polyneuropathy Carpal tunnel syndrome (~1999) Mumps (~1956) Chicken pox (~1955) Postmenopausal atrophic vaginitis Lower urinary tract symptoms (LUTS) Incontinence in female Foot ulcer due to secondary DM DDD (degenerative disc disease) CAD (coronary artery disease) Amputated toe of left foot Lumbar stenosis Surgical History Anesthesia History of knee surgery History of lumbar fusion S/P foot surgery, left Hx of tonsillectomy Status post cataract extraction of both eyes with insertion of intraocular lens Hx of heart artery stent S/P foot surgery, right Family History Mother Cancer Father Gangrene Social History household members: spouse Smoking Status: Never smoker alcohol intake: current Discharge Plan Discharge Plan Patient Disposition: Home Provider Discharge Comment: You were admitted for a UTI and received IV antibiotics for this. During your hospital stay you went into atrial fibrillation so will now be on 2 new medications for this, Eliquis a blood thinner and digoxin to control heart rate. Continue your metoprolol as you take it. Please see Dr. Barillas in 2 weeks to get more meds [facility]. Discharge orders & Medications Prescriptions: New Eliquis 5 mg Tablet 5 mg PO BID Qty: 60 0RF digoxin 125 mcg (0.125 mg) Tablet 0.125 mg PO DAILY@1700 30 Days Qty: 30 0RF phenazopyridine 200 mg tablet 200 mg PO TID 30 Days Qty: 90 0RF Continued multivitamin Tablet 1 tab PO DAILY ascorbic acid (vitamin C) [Super C Complex] 20,000 mg PO DAILY cholecalciferol (vitamin D3) 125 mcg (5,000 unit) capsule 125 mcg PO DAILY cranberry 1 cap PO DAILY estradiol 10 mcg tablet 10 mcg vaginal 3XW gabapentin 300 mg capsule 600 mg PO BEDTIME cyanocobalamin (vitamin B-12) 1,000 mcg capsule 1,000 mcg PO DAILY zinc gluconate 50 mg PO DAILY glipizide 5 mg tablet 5 mg PO DAILY nitrofurantoin macrocrystal 50 mg capsule 50 mg PO BEDTIME Rx Instructions: must administer with a meal/food Brilinta 60 mg tablet 60 mg PO BID atorvastatin 40 mg tablet 40 mg PO BEDTIME acetaminophen [Acetaminophen Extra Strength] 500 mg tablet 1,000 mg PO BID metformin 500 mg Tablet 1,000 mg PO BID metoprolol succinate 50 mg Tablet Extended Release 24 Hr 50 mg PO QAM aspirin 81 mg tablet,delayed release (DR/EC) 81 mg PO BID Myrbetriq 50 mg Tablet Extended Release 24 Hr 60 mg PO DAILY vitamin E 200 unit Capsule 180 mg PO DAILY magnesium 250 mg Tablet 250 mg PO DAILY omega-3 fatty acids Capsule 1,200 mg PO DAILY potassium gluconate 550 mg (90 mg) Tablet 550 mg PO DAILY Miralax powder 1 cap PO PRN PRN (Reason: Constipation) Follow up/Referrals: Anthony Gonzalez MD [Primary Care Provider] - 2 Weeks Visit Report/Discharge Packet Stand Alone Forms: Congestive Heart Failure, Patient Portal/API, Stroke Signs & Symptoms Discharge Data Primary Care Provider: Anthony Gonzalez V Attending Provider: Gaurang Bonds Admit Date/Time: 07/29/23 13:38 Quality <Austen Castrejon - Last Filed: 07/31/23 10:42> VTE Deep Vein Thrombosis/Pulmonary Embolism Present on Admission: No
== END 2023-07-31 11:33 | disposition home or self-care (01) | DRG 310 ==
LOC: ED 09:54 → AC 13:39 → ICU 14:02
PROVIDERS: Admitting Provider Internal Medicine; Emergency Provider Emergency Medicine; Family Provider Internal Medicine; PCP Internal Medicine; Referring Provider Emergency Medicine; Visit Provider Internal Medicine
DX: I48.91 Unspecified atrial fibrillation (principal); I25.10 Atherosclerotic heart disease of native coronary artery without angina pectoris; I73.9 Peripheral vascular disease, unspecified; I10 Essential (primary) hypertension; E78.5 Hyperlipidemia, unspecified; E11.9 Type 2 diabetes mellitus without complications; R33.9 Retention of urine, unspecified; R30.0 Dysuria; Z95.820 Peripheral vascular angioplasty status with implants and grafts; Z66 Do not resuscitate; Z79.84 Long term (current) use of oral hypoglycemic drugs; Z95.5 Presence of coronary angioplasty implant and graft
CPT/HCPCS: 36415; 51702; 71045; 71275; 80053; 81003; 81015; 82550; 82962; 83036; 83690; 83735; 83880; 84484; 85025; 85027; 87077; 87086; 87797; 92610; 93005; 93306; 96365; 96366; 96367; 96376; 99284; 99285; G0378; J0696; J1160; J1815; J3475; Q9967

== ENCOUNTER → 2023-09-09 13:02 | Outpatient (CLI) | payer MEDICARE, OTHER, SELFPAY ==
[2023-07-29 15:20] VITALS: BMI 29.1
[2023-09-09 14:56] LABS: Appearance Urine UA CLOUDY; Bilirubin Urine UA 1+ (NEGATIVE); Color Urine UA YELLOW; Glucose Urine UA NEGATIVE (Negative); Ketones Urine UA TRACE (NEGATIVE); Leukocyte Esterase Urine UA 2+ (NEGATIVE); Nitrite Urine UA NEGATIVE (Negative); Occult Blood Urine UA 3+ (Negative); Protein Urine UA 2+ (Negative); Urobilinogen Urine UA 0.2 E.U./dL (0.2)
[2023-09-09 14:59] LABS: pH Urine UA 5.5 (4.5-8.0)
[2023-09-09 15:04] LABS: Bacteria Urine Moderate (10-30); Culture Indicated Urine Specimen Cultured; Ictotest Urine Negative (Negative); RBC Urine 1-5/HPF (0-5/HPF); Squamous Epithelial Cell Urine None Seen (0-5/HPF); Urine Volume 10mL (spun); WBC Urine >100/HPF (0-5/HPF)
== END ==
PROVIDERS: Family Provider Internal Medicine; PCP Internal Medicine; Referring Provider Internal Medicine; Visit Provider Internal Medicine
DX: R39.9 Unspecified symptoms and signs involving the genitourinary system (principal)
CPT/HCPCS: 81001; 87077; 87086

== ENCOUNTER → 2023-09-19 15:07 | Outpatient (CLI) | payer MEDICARE, OTHER, SELFPAY ==
[2023-07-29 15:20] VITALS: BMI 29.1
[2023-09-19 15:28] LABS: Appearance Urine UA CLOUDY; Bilirubin Urine UA NEGATIVE (NEGATIVE); Color Urine UA YELLOW; Glucose Urine UA NEGATIVE (Negative); Ketones Urine UA NEGATIVE (NEGATIVE); Leukocyte Esterase Urine UA 2+ (NEGATIVE); Nitrite Urine UA NEGATIVE (Negative); Occult Blood Urine UA TRACE-INTACT (Negative); Protein Urine UA 1+ (Negative); Urobilinogen Urine UA 0.2 E.U./dL (0.2)
[2023-09-19 16:19] LABS: pH Urine UA 5.5 (4.5-8.0)
[2023-09-19 16:22] LABS: Bacteria Urine Moderate (10-30); Culture Indicated Urine Specimen Cultured; RBC Urine 0-1/HPF (0-5/HPF); Squamous Epithelial Cell Urine 5-10 /HPF (0-5/HPF); Urine Volume 10mL (spun); WBC Urine 10-30/HPF (0-5/HPF)
== END ==
PROVIDERS: Family Provider Internal Medicine; PCP Internal Medicine; Referring Provider Internal Medicine; Visit Provider Internal Medicine
DX: N39.0 Urinary tract infection, site not specified (principal)
CPT/HCPCS: 81001; 87086

== ENCOUNTER 2023-11-06 08:48 | Emergency (ER) | payer MEDICARE, OTHER, SELFPAY ==
[2023-07-29 15:20] VITALS: BMI 29.1
--- NOTE | 2023-11-06 08:54 | ED_ITS ---
HPI - General Adult General Chief complaint: Abdominal Pain Stated complaint: per pt bladder blockage, poss kidney stone Time Seen by Provider: 11/06/23 08:53 Source: patient, RN notes reviewed and old records reviewed Mode of arrival: Ambulatory Limitations: no limitations History of Present Illness HPI narrative: 78-year-old female history of coronary artery disease with LAD stent x 2, peripheral vascular disease, CVA, hypertension, dyslipidemia, peripheral stenting, atrial fibrillation on apixaban and digoxin who presents with frequent urination overnight and then ill but a urinate since 0300. Patient did take a dose of [place] early this morning to try to help with her urination and states afterwards has not been able to. She has been in the hospital once before for similar situation. She has pain in the vaginal area states like she can not empty her bladder. Denies abdominal back or flank pain. Denies fevers. No nausea or vomiting. No chest pain or shortness of breath. No issues with bowel movements or diarrhea. Patient family notes that she they has been on vacation and had stopped her daily Macrodantin because she developed sunburn. This was a prophylactic dose that she was taking 100 mg nightly to prevent UTIs. Related Data Home Medications Medication Instructions Recorded Confirmed metoprolol succinate 50 mg 50 mg PO QAM 09/20/17 09/14/23 tablet,extended release 24 hr nitrofurantoin macrocrystal 50 mg 50 mg PO BEDTIME 02/25/21 09/14/23 capsule ascorbic acid (vitamin C) [Super C 20,000 mg PO DAILY 06/11/22 09/14/23 Complex] cholecalciferol (vitamin D3) 125 125 mcg PO DAILY 06/11/22 09/14/23 mcg (5,000 unit) capsule cranberry 1 cap PO DAILY 06/11/22 09/14/23 multivitamin 1 tab PO DAILY 06/11/22 09/14/23 cyanocobalamin (vitamin B-12) 1,000 mcg PO DAILY 06/15/23 09/14/23 1,000 mcg capsule zinc gluconate 50 mg PO DAILY 06/15/23 09/14/23 acetaminophen 500 mg tablet 1,000 mg PO BID 07/28/23 09/14/23 (Acetaminophen Extra Strength) atorvastatin 40 mg tablet 40 mg PO BEDTIME 07/28/23 09/14/23 Miralax 1 cap PO PRN PRN Constipation 07/29/23 09/14/23 magnesium 250 mg tablet 250 mg PO DAILY 07/29/23 09/14/23 mirabegron 50 mg tablet,extended 60 mg PO DAILY 07/29/23 09/14/23 release 24 hr (Myrbetriq) omega-3 fatty acids 1,200 mg PO DAILY 07/29/23 09/14/23 potassium gluconate 550 mg (90 mg) 550 mg PO DAILY 07/29/23 09/14/23 tablet vitamin E 200 unit capsule 180 mg PO DAILY 07/29/23 09/14/23 Previous Rx's Medication Instructions Recorded apixaban 5 mg tablet (Eliquis) 5 mg PO BID #180 tabs 08/01/23 digoxin 125 mcg (0.125 mg) tablet 0.125 mg PO DAILY@1700 #90 tabs 08/01/23 estradiol 10 mcg vaginal tablet 10 mcg vaginal 3XW #36 tabs 08/01/23 glipizide 5 mg tablet 5 mg PO BID #180 tabs 08/01/23 ticagrelor 60 mg tablet (Brilinta) 60 mg PO BID #180 tabs 08/01/23 gabapentin 300 mg capsule 600 mg (2 x 300 mg) PO BEDTIME 08/22/23 #180 caps terbinafine HCl 250 mg tablet 250 mg PO DAILY yeast infection #7 09/12/23 tabs metformin 500 mg tablet 1,000 mg (2 x 500 mg) PO BID #360 09/13/23 tabs doxycycline hyclate 100 mg capsule 100 mg PO BID UTI #14 caps 09/27/23 sulfamethoxazole 800 1 tab PO BID #14 tabs 11/06/23 mg-trimethoprim 160 mg tablet (Bactrim DS) tamsulosin 0.4 mg capsule (Flomax) 0.4 mg PO BEDTIME #7 caps 11/06/23 Allergies Allergy/AdvReac Type Severity Reaction Status Date / Time nut - unspecified Allergy Severe Anaphylaxis Verified 09/14/23 15:19 feathers Allergy Mild Verified 09/14/23 15:19 ketorolac [KETOROLAC] Allergy Mild itching Verified 09/14/23 15:19 coconut Allergy Unknown Allergy Verified 09/14/23 15:19 testing - unknown reaction Penicillins Allergy Unknown Had Verified 09/14/23 15:19 allergy testing, told not to take, unknown reation empagliflozin AdvReac Severe Muscle Pain Verified 09/14/23 15:19 [From Jardiance] Review of Systems Review of Systems ROS Unobtainable: All systems reviewed & are unremarkable except as noted in HPI and below Patient History Medical History Chronic anticoagulation Paroxysmal atrial fibrillation Do not resuscitate Osteopenia Venous (peripheral) insufficiency Urinary incontinence Slow transit constipation Primary osteoarthritis involving multiple joints Cerebrovascular disease Peripheral arterial disease Chronic low back pain Stage 3a chronic kidney disease (CKD) Mixed hyperlipidemia Essential hypertension Polyneuropathy, unspecified Type 2 diabetes mellitus with polyneuropathy Carpal tunnel syndrome (~1999) Mumps (~195) Chicken pox (~1954) Postmenopausal atrophic vaginitis Lower urinary tract symptoms (LUTS) Incontinence in female Foot ulcer due to secondary DM DDD (degenerative disc disease) CAD (coronary artery disease) Amputated toe of left foot Lumbar stenosis Surgical History Anesthesia History of knee surgery History of lumbar fusion S/P foot surgery, left Hx of tonsillectomy Status post cataract extraction of both eyes with insertion of intraocular lens Hx of heart artery stent S/P foot surgery, right Family History Mother Cancer Father Gangrene Social History household members: spouse Smoking Status: Never smoker alcohol intake: current Smoking Status: Never smoker alcohol intake frequency: holidays/special occasions only Substance Use Type: does not use Exam Narrative Exam Narrative: GENERAL: Alert and oriented x three, elderly female in moderate distress. HEENT: Head normocephalic, atraumatic, EOMI, pupils reactive, face symmetric, moist mucous membranes NECK: Supple, full range of motion CARDIOVASCULAR: Irregularly irregular and tachycardic rate and rhythm without m urmurs, rubs or gallops. No JVD. No edema bilateral lower extremities. RESPIRATORY: Breath sounds equal bilaterally, no wheezes rales or rhonchi. ABDOMEN: Soft, moderately tender suprapubic, Normoactive bowel sounds all 4 quadrants. No guarding or rebound, rigidity, no mass : No CVA tenderness EXTREMITIES: Normal range of motion, no clubbing or edema. Neurovascularly intact NEUROLOGICAL: Cranial nerves II through XII grossly intact. Moving all extremities SKIN: Warm, dry, no petechiae, no rashes or lesions. Initial Vital Signs Initial Vital Signs: Vital Signs Temperature 97.6 F 11/06/23 09:16 Pulse Rate 141 H 11/06/23 09:16 Respiratory Rate 28 H 11/06/23 09:16 Blood Pressure 155/92 H 11/06/23 09:16 Pulse Oximetry 99 11/06/23 09:16 Oxygen Delivery Method Room Air 11/06/23 09:16 Course Orders Ordered: ED Orders 11/06/23 09:02 UA Complete [Urinalysis and Microscopic] Stat Urine Culture Stat Vital Signs Vital signs: Vital Signs - 8 hr 11/06/23 09:16 11/06/23 09:19 Temperature 97.6 F Pulse Rate 141 H 88 Respiratory Rate 28 H 16 Blood Pressure 155/92 H Pulse Oximetry 99 100 Oxygen Delivery Method Room Air Room Air Medical Decision Making Lab Data Labs: Lab Results 11/06/23 Range/Units 09:02 Urine Color Yellow Urine Appearance Cloudy Urine pH 5.5 (4.5-8.0) Ur Specific [place] 1.010 (1.000-1.035) Urine Protein 1+ H (Negative) Urine Glucose (UA) Negative (Negative) g/dL Urine Ketones Negative (NEGATIVE) Urine Occult Blood 3+ H (Negative) Urine Nitrate Positive H (Negative) Urine Bilirubin Negative (NEGATIVE) Urine Urobilinogen 0.2 (0.2) E.U./dL Ur Leukocyte Esterase 3+ H (NEGATIVE) Urine RBC >100/hpf H (0-5/HPF) Urine WBC >100/hpf H (0-5/HPF) Ur Squamous Epith Cells 1-5 /hpf (0-5/HPF) Urine Bacteria Many (>30) H (None) Ur Culture Indicated? Specimen cultured Micro UA Comment Vol Urine Centrifuged 10ml (spun) MDM Narrative Medical decision making narrative: Was difficult to obtain bladder scan secondary to patient's pannus, Frost catheter was placed patient had significant improvement of symptoms and her heart rate normalized almost immediately after catheter was placed in her bladder began draining and improved into the 90s. Patient's urine is quite cloudy with sediment and was sent for UA. Family also notes patient has stopped her daily Macrodantin because she developed a sunburn while on vacation and she has not been taking her prophylactic dose. Discussed obtaining labs patient is reluctant to do so prefers not to at this time. She has only had 6 hours of retention that she is appreciated so felt appropriate to hold off. UA Patient's AFib RVR resolved after she was able to empty her bladder. She is appropriately anticoagulated her other vitals are overall appropriate no hypotension, no fevers or signs of sepsis. Patient is started on oral antibiotics. We will use alternative to her Macrodantin as several prior culture showed resistance. Patient did have a range of different positive cultures. Patient has penicillin allergy reported unclear she can take cephalexin, she has apixaban fluoroquinolone as LEs appropriate. We will cover with Bactrim. Discharge Plan Departure Patient Disposition: Home Clinical Impression: Acute urinary retention, UTI (urinary tract infection) Instructions: How to Care for Your Frost Catheter -- Female Activity Restrictions/Additional Instructions: Follow up with your physician or Urology to have your catheter removed. Please call the number below to set up follow-up. Hold your Sanctura for now. Take flomax once daily. Take antibiotics until completed. Prescription was sent to [facility] in [place] Return for fevers, you are catheter is not draining, if you are having new abdominal back or flank pain, vomiting, lightheadedness or passing out or any other new or concerning changes. Prescriptions: New tamsulosin [Flomax] 0.4 mg capsule 0.4 mg PO BEDTIME Qty: 7 0RF sulfamethoxazole-trimethoprim [Bactrim DS] 800-160 mg tablet 1 tab PO BID Qty: 14 0RF No Action gabapentin 300 mg capsule 600 mg PO BEDTIME Qty: 180 3RF terbinafine HCl 250 mg tablet 250 mg PO DAILY Qty: 7 0RF Rx Instructions: terbinafine 250mg daily x 7 days metformin 500 mg tablet 1,000 mg PO BID Qty: 360 3RF doxycycline hyclate 100 mg capsule 100 mg PO BID Qty: 14 0RF multivitamin Tablet 1 tab PO DAILY ascorbic acid (vitamin C) [Super C Complex] 20,000 mg PO DAILY cholecalciferol (vitamin D3) 125 mcg (5,000 unit) capsule 125 mcg PO DAILY cranberry 1 cap PO DAILY cyanocobalamin (vitamin B-12) 1,000 mcg capsule 1,000 mcg PO DAILY zinc gluconate 50 mg PO DAILY nitrofurantoin macrocrystal 50 mg capsule 50 mg PO BEDTIME Rx Instructions: must administer with a meal/food atorvastatin 40 mg tablet 40 mg PO BEDTIME acetaminophen [Acetaminophen Extra Strength] 500 mg tablet 1,000 mg PO BID digoxin 125 mcg (0.125 mg) tablet 0.125 mg PO DAILY@1700 Qty: 90 3RF Eliquis 5 mg tablet 5 mg PO BID Qty: 180 3RF glipizide 5 mg tablet 5 mg PO BID Qty: 180 3RF Brilinta 60 mg tablet 60 mg PO BID Qty: 180 3RF estradiol 10 mcg tablet 10 mcg vaginal 3XW Qty: 36 3RF metoprolol succinate 50 mg Tablet Extended Release 24 Hr 50 mg PO QAM Myrbetriq 50 mg Tablet Extended Release 24 Hr 60 mg PO DAILY vitamin E 200 unit Capsule 180 mg PO DAILY magnesium 250 mg Tablet 250 mg PO DAILY omega-3 fatty acids Capsule 1,200 mg PO DAILY potassium gluconate 550 mg (90 mg) Tablet 550 mg PO DAILY Miralax powder 1 cap PO PRN PRN (Reason: Constipation) Referrals: Gaurang Guillaume DO [Non-Staff] - Anthony Gonzalez MD [Primary Care Provider] - Lavelle Becerra MD [Physician] - Stand Alone Forms: Patient Portal/API
[2023-11-06 09:16] VITALS: BP 155/92; PULSE 141; RESP 28; TEMP 36.4; O2SAT 99; BMI 29.2
[2023-11-06 09:19] VITALS: PULSE 88; RESP 16; O2SAT 100
[2023-11-06 09:29] LABS: Appearance Urine UA CLOUDY; Bilirubin Urine UA NEGATIVE (NEGATIVE); Color Urine UA YELLOW; Glucose Urine UA NEGATIVE (Negative); Ketones Urine UA NEGATIVE (NEGATIVE); Leukocyte Esterase Urine UA 3+ (NEGATIVE); Nitrite Urine UA POSITIVE (Negative); Occult Blood Urine UA 3+ (Negative); Protein Urine UA 1+ (Negative); Urobilinogen Urine UA 0.2 E.U./dL (0.2)
[2023-11-06 09:35] LABS: pH Urine UA 5.5 (4.5-8.0)
[2023-11-06 09:44] LABS: Bacteria Urine Many (>30); RBC Urine >100/HPF (0-5/HPF); Squamous Epithelial Cell Urine 1-5 /HPF (0-5/HPF); Urine Volume 10mL (spun); WBC Urine >100/HPF (0-5/HPF)
[2023-11-06 09:45] LABS: Culture Indicated Urine Specimen Cultured
[2023-11-06 10:23] VITALS: BP 105/65; PULSE 86; RESP 16; TEMP 36.6; O2SAT 100
== END 2023-11-06 10:27 | disposition home or self-care (01) ==
PROVIDERS: Emergency Provider Emergency Medicine; Family Provider Internal Medicine; PCP Internal Medicine
DX: N39.0 Urinary tract infection, site not specified (principal); R33.8 Other retention of urine; Z79.01 Long term (current) use of anticoagulants; Z79.899 Other long term (current) drug therapy
CPT/HCPCS: 81001; 87077; 87086; 87186; 99283

== ENCOUNTER 2023-11-11 09:43 | Emergency (ER) | payer MEDICARE, OTHER, SELFPAY ==
[2023-07-29 15:20] VITALS: BMI 29.1
[2023-11-11 09:50] VITALS: BP 144/67; PULSE 83; RESP 15; TEMP 36.7; O2SAT 94; BMI 28.3
--- NOTE | 2023-11-11 10:14 | PC.NURSE ---
Pt was here Tuesday had a catheter placed for a urinary blockage and dx with UTI. Pt here today because there is urine leaking around the catheter. urine is draining into the bag. Pt is also having a lot of urethral pain. balloon delfated and noted to have 9mL in balloon. balloon reinflated with 10mL. bladder scan shows minimal to no urine in bladder. draining clear yellow urine.
[2023-11-11 10:18] VITALS: PULSE 74; O2SAT 100
--- NOTE | 2023-11-11 10:20 | ED_ITS ---
HPI - Female Genitourinary General Chief complaint: Urogenital-Female Stated complaint: Cath issues Time Seen by Provider: 11/11/23 10:19 Source: patient Mode of arrival: Wheelchair History of Present Illness HPI Narrative: Patient 78-year-old female history of coronary artery disease with LAD stent x2 peripheral vascular disease CVA hypertension dyslipidemia atrial fibrillation on Eliquis and digoxin presents today with urinary catheter problem. She was seen evaluated here on 11/06/2023 after inability to urinate. She had significant suprapubic pain she had trouble urinating catheter was placed unable to bladder scan due to body habitus. She reports now that urine is clear she took 1 dose of fosfomycin after having drug resistance and allergies. She reports that the urine is clear however she is having pain at the catheters site. She can not get into her primary or urologist wondering if she can get her catheter taken out. She has no other signs or symptoms Related Data Home Medications Medication Instructions Recorded Confirmed metoprolol succinate 50 mg 50 mg PO QAM 09/20/17 09/14/23 tablet,extended release 24 hr nitrofurantoin macrocrystal 50 mg 50 mg PO BEDTIME 02/25/21 09/14/23 capsule ascorbic acid (vitamin C) [Super C 20,000 mg PO DAILY 06/11/22 09/14/23 Complex] cholecalciferol (vitamin D3) 125 125 mcg PO DAILY 06/11/22 09/14/23 mcg (5,000 unit) capsule cranberry 1 cap PO DAILY 06/11/22 09/14/23 multivitamin 1 tab PO DAILY 06/11/22 09/14/23 cyanocobalamin (vitamin B-12) 1,000 mcg PO DAILY 06/15/23 09/14/23 1,000 mcg capsule zinc gluconate 50 mg PO DAILY 06/15/23 09/14/23 acetaminophen 500 mg tablet 1,000 mg PO BID 07/28/23 09/14/23 (Acetaminophen Extra Strength) atorvastatin 40 mg tablet 40 mg PO BEDTIME 07/28/23 09/14/23 Miralax 1 cap PO PRN PRN Constipation 07/29/23 09/14/23 magnesium 250 mg tablet 250 mg PO DAILY 07/29/23 09/14/23 mirabegron 50 mg tablet,extended 60 mg PO DAILY 07/29/23 09/14/23 release 24 hr (Myrbetriq) omega-3 fatty acids 1,200 mg PO DAILY 07/29/23 09/14/23 potassium gluconate 550 mg (90 mg) 550 mg PO DAILY 07/29/23 09/14/23 tablet vitamin E 200 unit capsule 180 mg PO DAILY 07/29/23 09/14/23 Previous Rx's Medication Instructions Recorded apixaban 5 mg tablet (Eliquis) 5 mg PO BID #180 tabs 08/01/23 digoxin 125 mcg (0.125 mg) tablet 0.125 mg PO DAILY@1700 #90 tabs 08/01/23 estradiol 10 mcg vaginal tablet 10 mcg vaginal 3XW #36 tabs 08/01/23 glipizide 5 mg tablet 5 mg PO BID #180 tabs 08/01/23 ticagrelor 60 mg tablet (Brilinta) 60 mg PO BID #180 tabs 08/01/23 gabapentin 300 mg capsule 600 mg (2 x 300 mg) PO BEDTIME 08/22/23 #180 caps terbinafine HCl 250 mg tablet 250 mg PO DAILY yeast infection #7 09/12/23 tabs metformin 500 mg tablet 1,000 mg (2 x 500 mg) PO BID #360 09/13/23 tabs doxycycline hyclate 100 mg capsule 100 mg PO BID UTI #14 caps 09/27/23 sulfamethoxazole 800 1 tab PO BID #14 tabs 11/06/23 mg-trimethoprim 160 mg tablet (Bactrim DS) tamsulosin 0.4 mg capsule (Flomax) 0.4 mg PO BEDTIME #7 caps 11/06/23 Allergies Allergy/AdvReac Type Severity Reaction Status Date / Time nut - unspecified Allergy Severe Anaphylaxis Verified 11/11/23 09:54 feathers Allergy Mild Verified 11/11/23 09:54 ketorolac [KETOROLAC] Allergy Mild itching Verified 11/11/23 09:54 coconut Allergy Unknown Allergy Verified 11/11/23 09:54 testing - unknown reaction Penicillins Allergy Unknown Had Verified 11/11/23 09:54 allergy testing, told not to take, unknown reation empagliflozin AdvReac Severe Muscle Pain Verified 11/11/23 09:54 [From Jardiance] Patient History Medical History Chronic anticoagulation Paroxysmal atrial fibrillation Do not resuscitate Osteopenia Venous (peripheral) insufficiency Urinary incontinence Slow transit constipation Primary osteoarthritis involving multiple joints Cerebrovascular disease Peripheral arterial disease Chronic low back pain Stage 3a chronic kidney disease (CKD) Mixed hyperlipidemia Essential hypertension Polyneuropathy, unspecified Type 2 diabetes mellitus with polyneuropathy Carpal tunnel syndrome (~1999) Mumps (~195) Chicken pox (~1954) Postmenopausal atrophic vaginitis Lower urinary tract symptoms (LUTS) Incontinence in female Foot ulcer due to secondary DM DDD (degenerative disc disease) CAD (coronary artery disease) Amputated toe of left foot Lumbar stenosis Surgical History Anesthesia History of knee surgery History of lumbar fusion S/P foot surgery, left Hx of tonsillectomy Status post cataract extraction of both eyes with insertion of intraocular lens Hx of heart artery stent S/P foot surgery, right Family History Mother Cancer Father Gangrene alcohol intake frequency: holidays/special occasions only Substance Use Type: does not use Exam Initial Vital Signs Initial Vital Signs: Vital Signs Temperature 98.1 F 11/11/23 09:50 Pulse Rate 83 11/11/23 09:50 Respiratory Rate 15 11/11/23 09:50 Blood Pressure 144/67 H 11/11/23 09:50 Pulse Oximetry 94 11/11/23 09:50 Oxygen Delivery Method Room Air 11/11/23 09:50 GENERAL: Alert pleasant 78-year-old female and in no acute distress. HEENT: Head atraumatic,EOMI, pupils reactive, face symmetric, moist mucous membranes CARDIOVASCULAR: Regular rate and rhythm without murmurs, rubs or gallops. RESPIRATORY: Breath sounds equal bilaterally, no wheezes rales or rhonchi. ABDOMEN: Soft, nontender. Normoactive bowel sounds all 4 quadrants. No guarding or rebound. : No CVA tenderness EXTREMITIES: Normal range of motion, no clubbing or edema. Neurovascularly intact NEUROLOGICAL: Alert and oriented x4.Normal gait and speech. SKIN: Warm, dry, no laceration, no petechiae, no rashes or lesions. Course Orders Ordered: ED Orders 11/11/23 10:00 Urine Culture Stat 11/11/23 11:23 Urine Microscopic Stat Vital Signs Vital signs: Vital Signs - 8 hr 11/11/23 09:50 11/11/23 10:18 11/11/23 10:30 Temperature 98.1 F Pulse Rate 83 74 74 Respiratory Rate 15 Blood Pressure 144/67 H Pulse Oximetry 94 100 100 Oxygen Delivery Method Room Air 11/11/23 10:30 11/11/23 11:30 11/11/23 11:46 Temperature Pulse Rate 83 Respiratory Rate Blood Pressure 141/68 H 156/67 H Pulse Oximetry 92 Oxygen Delivery Method MDM - Female Genitourinary Lab Data Labs: Lab Results 11/11/23 Range/Units 11:23 Urine RBC 1-5/hpf D (0-5/HPF) Urine WBC 5-10/hpf H (0-5/HPF) Ur Squamous Epith Cells 10-30 /hpf H D (0-5/HPF) Urine Bacteria None seen (None) Vol Urine Centrifuged 10ml (spun) Urine Dip Bedside Urine Glucose Negative Bedside Urine Bilirubin - Negative Bedside Urine Ketone - Negative Urine Specific [place] 1.020 Bedside Urine Occult Blood ++ Bedside Urine pH 6.0 Bedside Urine Protein + 30 Bedside Urine Urobilinogen - Negative Bedside Urine Nitrite - Negative Bedside Urine Leukocytes ++ 125 Esterase MDM Narrative Medical decision making narrative: Discussion with patient about possibility of removing catheter is possible she w ould some retention secondary to a UTI. She wanted the catheter removed she urinated after the catheter. Would await for culture for urine I do think it is contaminated. She understands that if she stops urinating that she needs to return to the ED. Discharge Plan Departure Patient Disposition: Home Clinical Impression: Acute urinary retention Instructions: DI for Urinary Retention in Women Activity Restrictions/Additional Instructions: *You have been diagnosed with urinary retention *What to do: At this time glad urinated please make sure you continue to urinate. *Continue to take medications as directed *Follow up with your primary care provider in 2-3 days or call [phone] *Return to ER if you should have inability to urinate increasing abdominal pain or any new, worsening or concerning symptoms Prescriptions: No Action gabapentin 300 mg capsule 600 mg PO BEDTIME Qty: 180 3RF terbinafine HCl 250 mg tablet 250 mg PO DAILY Qty: 7 0RF Rx Instructions: terbinafine 250mg daily x 7 days metformin 500 mg tablet 1,000 mg PO BID Qty: 360 3RF doxycycline hyclate 100 mg capsule 100 mg PO BID Qty: 14 0RF multivitamin Tablet 1 tab PO DAILY ascorbic acid (vitamin C) [Super C Complex] 20,000 mg PO DAILY cholecalciferol (vitamin D3) 125 mcg (5,000 unit) capsule 125 mcg PO DAILY cranberry 1 cap PO DAILY cyanocobalamin (vitamin B-12) 1,000 mcg capsule 1,000 mcg PO DAILY zinc gluconate 50 mg PO DAILY nitrofurantoin macrocrystal 50 mg capsule 50 mg PO BEDTIME Rx Instructions: must administer with a meal/food atorvastatin 40 mg tablet 40 mg PO BEDTIME acetaminophen [Acetaminophen Extra Strength] 500 mg tablet 1,000 mg PO BID digoxin 125 mcg (0.125 mg) tablet 0.125 mg PO DAILY@1700 Qty: 90 3RF Eliquis 5 mg tablet 5 mg PO BID Qty: 180 3RF glipizide 5 mg tablet 5 mg PO BID Qty: 180 3RF Brilinta 60 mg tablet 60 mg PO BID Qty: 180 3RF estradiol 10 mcg tablet 10 mcg vaginal 3XW Qty: 36 3RF metoprolol succinate 50 mg Tablet Extended Release 24 Hr 50 mg PO QAM Myrbetriq 50 mg Tablet Extended Release 24 Hr 60 mg PO DAILY vitamin E 200 unit Capsule 180 mg PO DAILY magnesium 250 mg Tablet 250 mg PO DAILY omega-3 fatty acids Capsule 1,200 mg PO DAILY potassium gluconate 550 mg (90 mg) Tablet 550 mg PO DAILY Miralax powder 1 cap PO PRN PRN (Reason: Constipation) tamsulosin [Flomax] 0.4 mg capsule 0.4 mg PO BEDTIME Qty: 7 0RF sulfamethoxazole-trimethoprim [Bactrim DS] 800-160 mg tablet 1 tab PO BID Qty: 14 0RF Referrals: Anthony Gonzalez MD [Primary Care Provider] - Stand Alone Forms: Patient Portal/API
[2023-11-11 10:30] VITALS: BP 141/68; PULSE 74; O2SAT 100
[2023-11-11 11:30] VITALS: PULSE 83; O2SAT 92
[2023-11-11 11:33] LABS: Urine Volume 10mL (spun)
[2023-11-11 11:36] LABS: Bacteria Urine None Seen; RBC Urine 1-5/HPF (0-5/HPF); Squamous Epithelial Cell Urine 10-30 /HPF (0-5/HPF); WBC Urine 5-10/HPF (0-5/HPF)
[2023-11-11 11:46] VITALS: BP 156/67
== END 2023-11-11 11:46 | disposition home or self-care (01) ==
PROVIDERS: Emergency Provider Emergency Medicine; Family Provider Internal Medicine; PCP Internal Medicine
DX: R33.8 Other retention of urine (principal); Z79.01 Long term (current) use of anticoagulants; Z79.899 Other long term (current) drug therapy
CPT/HCPCS: 81003; 81015; 87077; 87086; 87186; 99282; 99283

== ENCOUNTER → 2023-11-16 17:08 | Outpatient (CLI) | payer MEDICARE, OTHER, SELFPAY ==
[2023-07-29 15:20] VITALS: BMI 29.1
[2023-11-16 17:38] LABS: Hematocrit 34.8 % (36-46); Hemoglobin 11.3 g/dL (12.0-16.0); Mean Corpuscular HGB Conc 32.6 % (30-36); Mean Corpuscular Hemoglobin 28.6 PG (26-34); Mean Corpuscular Volume 87.9 fL (80-100); Platelet Count 354 X10^3/uL (150-400); Red Blood Cell Count 3.96 X10^6/uL (4.0-5.2); Red Cell Distribution Width 17.6 % (11.6-14.8); White Blood Cell Count 9.3 X10^3/uL (4.5-11.0)
[2023-11-16 17:59] LABS: Hemoglobin A1C% w Est Avg Glu 7.5 % (4.0-6.0)
[2023-11-16 18:06] LABS: Alanine Aminotransferase 15 IU/L (<35); Albumin 4.4 g/dL (3.5-5.0); Albumin Globulin Ratio 1.2 (1.0-2.8); Alkaline Phosphatase 101 U/L (38-126); Aspartate Aminotransferase 19 IU/L (14-36); BUN Creatinine Ratio 12.1 (6-22); Bilirubin Total 0.6 mg/dL (0.2-1.3); Blood Urea Nitrogen 13 mg/dL (7-17); Calcium 10.2 mg/dL (8.4-10.2); Carbon Dioxide 21 mmol/L (22-32); Chloride 108 mmol/L (98-107); Estimated Glomerular Filt Rate 53 mL/min (>60); Globulin 3.7 g/dL (1.7-4.1); Glucose 235 mg/dL (80-110); HEMOLYSIS < 15 (0-50); Potassium 4.8 mmol/L (3.4-5.1); Sodium 139 mmol/L (137-145); Total Protein 8.1 g/dL (6.3-8.2)
== END ==
LOC: LAB 17:09
PROVIDERS: Family Provider Internal Medicine; PCP Internal Medicine; Referring Provider Internal Medicine; Visit Provider Internal Medicine
DX: E11.42 Type 2 diabetes mellitus with diabetic polyneuropathy (principal); N18.31 Chronic kidney disease, stage 3a
CPT/HCPCS: 36415; 80053; 83036; 85027

== ENCOUNTER → 2023-12-28 12:56 | Outpatient (CLI) | payer MEDICARE, OTHER, SELFPAY ==
[2023-07-29 15:20] VITALS: BMI 29.1
--- NOTE | 2024-01-12 11:40 | DIAB.MNT ---
Initial Diabetes Medical Nutrition Therapy Assessment Name: Razia Carias (Ashley) Date: 12/28/23 Time: 105-2p Dx: Type II Diabetes Provider: Carlos Ramirez presents for initial visit, last RD visit in September of 2022 Endorses attending wound care for LE wounds. States she is not sure what to eat. Needs to eat more consistently per report. Has lost about 10# unintentionally. Per recent wts 6% loss over 1 month. Concerns for PCM and increased protein needs for wounds; however also has CKD with <60 GFR and elevated Cr last lab result. Diet recall: 1p: 1/2 bagel or 1c yogurt with ensure 7p: meat x 3-4 oz breaded, veggies, salad - sometimes declines juice 16.9oz water not much green machine smoothie 6oz ensure 1x per day fluids 16.9 x3 or less per report Anthropometrics: Ht: 64 Wt: 158# today Weight history: 168# 11/2023 Self-Monitoring Blood Glucose: None Diabetes Medications: 5mg Glipizide BID 1000mg Metformin BID Pertinent Labs: HgA1c: 10.5% 07/2023 7.5% 11/2023 Past Medical History: (Last Reviewed 01/04/24 @ 13:50 by Anthony Gonzalez MD) Amputated toe of left foot left 2nd toe CAD (coronary artery disease) Carpal tunnel syndrome (~1999) Cerebrovascular disease Chicken pox (~1954) Chronic anticoagulation Chronic low back pain DDD (degenerative disc disease) Do not resuscitate Essential hypertension Foot ulcer due to secondary DM right foot, recurrent, chronic, non-healing, surgery w/skin graft, improved Incontinence in female Lower urinary tract symptoms (LUTS) Lumbar stenosis Mixed hyperlipidemia Mumps (~1955) Osteopenia Paroxysmal atrial fibrillation Peripheral arterial disease Polyneuropathy, unspecified 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 Provided appropriate educational handouts. Discussed the following topics: Completed intake assessment. Discussed barriers to care. Higher kcal foods for wt management Protein recs and foods Strategies to manage wound healing, wt loss, and CKD Hydration recs CGM Sample Reviewed CGM use and equipment Discussed when to check blood sugars using finger stick Reviewed high and low blood sugar signs/symptoms and treatment options Provided education for self-administration of CGM placement Educated patient on alarm settings Discussed how to remove and dispose of equipment Created SMART goals for patient self-care and success. Goals: Wear CGM x 10 days Add Ensure to HS Try 4pm snack Follow-up: DEREK MCKEON follow-up in 2-3 weeks Katarina Chauhan RDN, LINDA Certified Diabetes Care and Manga Artist P: [phone] Thank you for this referral
== END ==
PROVIDERS: Family Provider Internal Medicine; PCP Internal Medicine; Referring Provider Internal Medicine
DX: E11.42 Type 2 diabetes mellitus with diabetic polyneuropathy (principal); Z71.3 Dietary counseling and surveillance; Z79.84 Long term (current) use of oral hypoglycemic drugs
CPT/HCPCS: 97802

== ENCOUNTER → 2024-01-12 13:46 | Outpatient (CLI) | payer MEDICARE, OTHER, SELFPAY ==
[2023-07-29 15:20] VITALS: BMI 29.1
--- NOTE | 2024-01-13 11:06 | DIAB.MNTFU ---
Addendum entered by Katarina Chauhan 01/31/24 10:08: Called spouse to discuss CGM results. Main concern for RD and is her risk for malnutrition. Encouraged safe activity and adequate nutrition. Eddie and Ashley would like to follow-up prn at this time. Addendum entered by Katarina Chauhan 01/31/24 10:02: In review of CGm trends, most of elevations occur after 3p, consistent with eating patterns since she has a difficult time eating earlier in the day. Most pc elevations are under 200 or 210 mg/dl. Original Note: Follow-up Diabetes Medical Nutrition Therapy Assessment Name: Razia Carias (Ashley) Date: 01/12/24 Time: 2-3p Dx: Type II Diabetes Provider: Carlos Ramirez presents for follow-up visit. Continues wound care for LE wounds, foot and heel wounds. Concerns for PCM and increased protein needs for wounds; however also has CKD with <60 GFR and elevated Cr last lab result. Not hungry for afternoon snack we discussed last visit. States only small portions at dinner, ie half chicken marcelo. Added ONS before bed, as discussed last visit. Diet recall: 1p: 1/2 bagel or 1c yogurt with ensure 7p: 1/2 meat x 3-4 oz breaded HS: ensure Beverages; juice, water, ensure, green machine smoothie Anthropometrics: Ht: 64 Wt: 155# reported 158# last visit 168# 11/2023 Self-Monitoring Blood Glucose: Wore CGM. Not interested in personal CGM. TIR in goal. Unable to see trends due to IT issues with CGM site. Time in range >70%. TIR: 1% very high 24% high 74% in range 1% low 0% very low Diabetes Medications: 5mg Glipizide BID 1000mg Metformin BID Pertinent Labs: HgA1c: 10.5% 07/2023 7.5% 11/2023 Past Medical History: (Last Reviewed 01/04/24 @ 13:50 by Anthony Gonzalez MD) Amputated toe of left foot left 2nd toe CAD (coronary artery disease) Carpal tunnel syndrome (~2000) Cerebrovascular disease Chicken pox (~1955) Chronic anticoagulation Chronic low back pain DDD (degenerative disc disease) Do not resuscitate Essential hypertension Foot ulcer due to secondary DM right foot, recurrent, chronic, non-healing, surgery w/skin graft, improved Incontinence in female Lower urinary tract symptoms (LUTS) Lumbar stenosis Mixed hyperlipidemia Mumps (~1956) Osteopenia Paroxysmal atrial fibrillation Peripheral arterial disease Polyneuropathy, unspecified 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 Provided appropriate educational handouts. Discussed the following topics: TIR goals and current results Risk of PCM Ways to increase kcals and protein safely Choosing plant based proteins for kidney health Physical activity for maintaining strength and reducing elevated BG Created SMART goals for patient self-care and success. Goals: Wear CGM x 10 days- met Add Ensure to HS- met Try 4pm snack - not met Start stationary bike 3-4x per week - new Try to eat at least TID- new Follow-up: DEREK MCKEON follow-up over phone after RD review of CGm data. Will then determine follow-up needs. Katarina Chauhan RDN, LINDA Certified Diabetes Care and Extended Insurance Clerk P: [phone] Thank you for this referral
== END ==
PROVIDERS: Family Provider Internal Medicine; PCP Internal Medicine; Referring Provider Internal Medicine
DX: E11.42 Type 2 diabetes mellitus with diabetic polyneuropathy (principal); Z79.84 Long term (current) use of oral hypoglycemic drugs; Z71.3 Dietary counseling and surveillance
CPT/HCPCS: 97803

== ENCOUNTER → 2024-04-12 14:27 | Outpatient (CLI) | payer MEDICARE, OTHER, SELFPAY ==
[2023-07-29 15:20] VITALS: BMI 29.1
[2024-04-12 15:10] LABS: Hemoglobin A1C% w Est Avg Glu 9.2 % (4.0-6.0)
[2024-04-12 15:14] LABS: Appearance Urine UA CLEAR; Bilirubin Urine UA NEGATIVE (NEGATIVE); Color Urine UA YELLOW; Glucose Urine UA NEGATIVE (Negative); Ketones Urine UA NEGATIVE (NEGATIVE); Leukocyte Esterase Urine UA TRACE (NEGATIVE); Nitrite Urine UA NEGATIVE (Negative); Occult Blood Urine UA 2+ (Negative); Protein Urine UA NEGATIVE (Negative); Urobilinogen Urine UA 0.2 E.U./dL (0.2)
[2024-04-12 15:20] LABS: Bacteria Urine Few (2-10); Culture Indicated Urine Cult Not Indicated; RBC Urine 5-10/HPF (0-5/HPF); Squamous Epithelial Cell Urine 5-10 /HPF (0-5/HPF); Urine Volume 10mL (spun); WBC Urine 1-5/HPF (0-5/HPF)
[2024-04-12 15:32] LABS: Aspartate Aminotransferase 25 IU/L (14-36); BUN Creatinine Ratio 19.3 (6-22); Blood Urea Nitrogen 21 mg/dL (7-17); Calcium 9.6 mg/dL (8.4-10.2); Carbon Dioxide 20 mmol/L (22-32); Chloride 107 mmol/L (98-107); Cholesterol 237 mg/dL (140-199); Estimated Glomerular Filt Rate 52 mL/min (>60); Glucose 175 mg/dL (80-110); HDL Cholesterol 54 mg/dL (40-60); HEMOLYSIS 22 (0-50); LDL Cholesterol Calculated 112 mg/dL (<100); Potassium 4.7 mmol/L (3.4-5.1); Sodium 137 mmol/L (137-145); Triglycerides 354 mg/dL (35-150)
[2024-04-12 15:41] LABS: Creatinine Urine Random 51.06 mg/dL
[2024-04-12 15:46] LABS: Microalbumin Urine Random 2.3 mg/dL (0-1.6)
== END ==
PROVIDERS: Family Provider Internal Medicine; PCP Internal Medicine; Referring Provider Internal Medicine; Visit Provider Internal Medicine
DX: N18.31 Chronic kidney disease, stage 3a (principal); E11.42 Type 2 diabetes mellitus with diabetic polyneuropathy; E78.2 Mixed hyperlipidemia; N39.0 Urinary tract infection, site not specified
CPT/HCPCS: 80048; 80061; 81001; 82043; 82570; 83036; 84450

== ENCOUNTER → 2024-07-11 14:15 | Outpatient (CLI) | payer MEDICARE, OTHER, SELFPAY ==
[2023-07-29 15:20] VITALS: BMI 29.1
[2024-07-11 14:40] LABS: Hemoglobin A1C% w Est Avg Glu 7.7 % (4.0-6.0)
[2024-07-11 15:14] LABS: BUN Creatinine Ratio 20.4 (6-22); Blood Urea Nitrogen 28 mg/dL (7-17); Calcium 10.2 mg/dL (8.4-10.2); Carbon Dioxide 21 mmol/L (22-32); Chloride 106 mmol/L (98-107); Estimated Glomerular Filt Rate 39 mL/min (>60); Glucose 145 mg/dL (80-110); HEMOLYSIS < 15 (0-50); Potassium 4.8 mmol/L (3.4-5.1); Sodium 139 mmol/L (137-145)
== END ==
PROVIDERS: Family Provider Internal Medicine; PCP Internal Medicine; Referring Provider Internal Medicine; Visit Provider Internal Medicine
DX: E11.42 Type 2 diabetes mellitus with diabetic polyneuropathy (principal)
CPT/HCPCS: 36415; 80048; 83036

== ENCOUNTER → 2024-08-01 14:30 | Outpatient (CLI) | payer MEDICARE, OTHER, SELFPAY ==
[2023-07-29 15:20] VITALS: BMI 29.1
--- NOTE | 2024-08-01 14:35 | DI.MG.S_ITS ---
MM screening mammo BI: 08/01/2024. BI-RADS: 1 CLINICAL: 79-year old female for bilateral screening mammogram. Tyrer-Cuzick lifetime risk of 1.9%. No personal or first-degree family history of breast cancer. PRIOR EXAMS 07/04/2023, 06/09/2022, 12/30/2020, 10/11/2019, 10/02/2018, 09/22/2017, 09/15/2016, 09/15/2015, 09/03/2014. MAMMOGRAPHY TECHNIQUE: 2D and 3D (tomosynthesis) digital mammographic views obtained, with additional images as needed for full coverage. Current study was also evaluated with a Computer Aided Detection (CAD) system. DENSITY B. There are scattered areas of fibroglandular density. MAMMOGRAPHY FINDINGS Bilateral: No suspicious mass, asymmetry, microcalcification, or other abnormality seen. IMPRESSION: * No evidence of malignancy. RECOMMENDATIONS Bilateral * Annual screening mammography. OVERALL ASSESSMENT CATEGORY BI-RADS-1: Negative. The [employer] recommends annual screening mammography beginning at age 40 for women with average risk of breast cancer. ELECTRONICALLY SIGNED: Leidy Balderrama M.D. on 08/06/2024 at 12:55:36 AM PT Interpreting Station ID: [id number]
== END ==
PROVIDERS: Family Provider Internal Medicine; PCP Internal Medicine; Referring Provider Internal Medicine; Visit Provider Internal Medicine
DX: Z12.31 Encounter for screening mammogram for malignant neoplasm of breast (principal)
CPT/HCPCS: 77063; 77067

== ENCOUNTER → 2025-01-14 16:55 | Outpatient (CLI) | payer MEDICARE, OTHER, SELFPAY ==
[2023-07-29 15:20] VITALS: BMI 29.1
[2025-01-14 19:31] LABS: Blood Urea Nitrogen 24 mg/dL (7-17); Calcium 10.6 mg/dL (8.4-10.2); Carbon Dioxide 22 mmol/L (22-32); Chloride 105 mmol/L (98-107); Estimated Glomerular Filt Rate 40 mL/min (>60); Glucose 130 mg/dL (70-99); HEMOLYSIS < 15 (0-50); Potassium 4.9 mmol/L (3.4-5.1); Sodium 139 mmol/L (137-145)
[2025-01-14 19:42] LABS: Hemoglobin A1C% w Est Avg Glu 7.0 % (4.0-6.0)
== END ==
LOC: LAB 16:56
PROVIDERS: PCP Internal Medicine; Referring Provider Internal Medicine; Visit Provider Internal Medicine
DX: E11.42 Type 2 diabetes mellitus with diabetic polyneuropathy (principal); N18.31 Chronic kidney disease, stage 3a
CPT/HCPCS: 36415; 80048; 83036